=== PATIENT | female | born 1940 | race American Indian/Alaskan Native ===

== ENCOUNTER 2017-08-05 20:55 | Emergency (ER) | payer MEDICARE ==
--- NOTE | 2017-08-05 21:27 | Emergency Department Report ---
ED General Adult HPI - General Chief complaint: Altered Mental Status Stated complaint: MH EVAL Time Seen by Provider: 08/05/17 21:19 Source: family, EMS Mode of arrival: Stretcher Limitations: Language Barrier, Altered Mental Status - History of Present Illness Initial comments: Patient sent from the detention, for altered mental status. According the patients daughter, patient is not at baseline currently. Patient does have history of dementia and urinary tract infection. She was diagnosed with a UTI but she is not taking her medication for the infection. -: Gradual, days(s) (3) Severity scale (0 -10): 3 Consistency: constant Improves with: none Worsens with: none Treatments Prior to Arrival: none - Related Data Previous Rx's Medication Instructions Recorded Last Taken Type Cephalexin [Keflex] 500 mg PO Q8HR #30 cap 08/06/17 Unknown Rx Allergies Allergy/AdvReac Type Severity Reaction Status Date / Time No Known Allergies Allergy Unverified 08/05/17 21:36 ED Review of Systems ROS: Stated complaint: MH EVAL Other details as noted in HPI Comment: Unobtainable due to pts medical conditions (altered mental status.) ED Past Medical Hx - Past Medical History Previous Medical History?: Yes Hx Diabetes: Yes Hx of Cancer: Yes (breast) Hx Psychiatric Treatment: Yes (schizophrenia) Hx Dementia: Yes (with behavioral disturbances) Additional medical history: legal blindness - Surgical History Past Surgical History?: No Additional Surgical History: unknown - Social History Smoking Status: Unknown if ever smoked Substance Use Type: None - Medications Home Medications: Home Medications Medication Instructions Recorded Confirmed Last Taken Type Cephalexin [Keflex] 500 mg PO Q8HR #30 cap 08/06/17 Unknown Rx ED Physical Exam - General Limitations: Language Barrier, Altered Mental Status General appearance: alert, in no apparent distress - Head Head exam: Present: atraumatic, normocephalic, normal inspection - Eye Eye exam: Present: normal appearance, PERRL, EOMI Pupils: Present: normal accommodation - ENT ENT exam: Present: normal exam, mucous membranes dry - Neck Neck exam: Present: normal inspection, full ROM. Absent: tenderness - Respiratory Respiratory exam: Present: normal lung sounds bilaterally. Absent: respiratory distress, wheezes - Cardiovascular Cardiovascular Exam: Present: regular rate, normal rhythm, normal heart sounds - GI/Abdominal GI/Abdominal exam: Present: soft, normal bowel sounds. Absent: distended, tenderness, guarding, rebound - Extremities Exam Extremities exam: Present: normal inspection, full ROM, normal capillary refill - Back Exam Back exam: Present: normal inspection, full ROM - Neurological Exam Neurological exam: Present: alert, altered - Psychiatric Psychiatric exam: Present: flat affect - Skin Skin exam: Present: warm, dry, intact, normal color. Absent: rash ED Course Vital Signs 08/05/17 08/05/17 08/06/17 21:15 22:45 00:19 Temperature 98.1 F Pulse Rate 87 82 Respiratory 17 18 16 Rate Blood Pressure 135/64 150/60 [Left] O2 Sat by Pulse 97 97 98 Oximetry ED Medical Decision Making - Lab Data Result diagrams: 08/05/17 21:32 08/05/17 21:32 - EKG Data -: EKG Interpreted by Me EKG shows normal: sinus rhythm Rate: normal (84) - EKG Data When compared to previous EKG there are: previous EKG unavailable Interpretation: no acute changes - Radiology Data Radiology results: report reviewed, image reviewed - Medical Decision Making Altered Mental Status. Critical care attestation.: If time is entered above; I have spent that time in minutes in the direct care of this critically ill patient, excluding procedure time. ED Disposition Clinical Impression: UTI (urinary tract infection) Qualifiers: Urinary tract infection type: acute cystitis Hematuria presence: without hematuria Qualified Code(s): N30.00 - Acute cystitis without hematuria Disposition: TO HOME OR SELFCARE Is pt being admited?: No Does the pt Need Aspirin: No Condition: Stable Instructions: Urinary Tract Infection in Women (ED) Additional Instructions: Please follow up with your primary doctor within the next 24 hours. Return to the ED if your condition worsens. Prescriptions: Cephalexin [Keflex] 500 mg PO Q8HR #30 cap Referrals: PRIMARY CARE [Primary Care Provider] - 3-5 Days Time of Disposition: :34
[2017-08-05 21:49] LABS: Hematocrit 45.6 % (30.3-42.9); Hemoglobin 15.7 gm/dl (10.1-14.3); Mean Corpuscular HGB Conc 34 % (30-34); Mean Corpuscular Hemoglobin 29 pg (28-32); Mean Corpuscular Volume 83 fl (79-97); Platelet Count 222 K/mm3 (140-440); Red Blood Count 5.47 M/mm3 (3.65-5.03); Red Cell Distribution Width 14.4 % (13.2-15.2)
[2017-08-05 21:57] LABS: INR 1.04 (0.87-1.13)
[2017-08-05 21:58] LABS: Partial Thromboplastin Time 27.8 Sec. (24.2-36.6)
[2017-08-05 22:10] LABS: Alanine Aminotransferase 33 units/L (7-56); BUN/Creatinine Ratio 27; Blood Urea Nitrogen 16 mg/dL (7-17); Calcium 9.9 mg/dL (8.4-10.2); Hemolysis Index 41
[2017-08-05 22:28] LABS: Basophils % (Manual) 0 % (0.0-1.8); Eosinophils % (Manual) 0 % (0.0-4.3); Total Cells Counted 100
[2017-08-05 22:29] LABS: RBC Morphology Normal
[2017-08-05] MEDS ORDERED: NACL 0.9% 1000 ML 1,000 ML IV ONE (22:30)
[2017-08-05 22:46] LABS: Bacteria,Urine 1+ /HPF (Negative); Bilirubin,Urine NEG (Negative); Blood,Urine LG (Negative); Color,Urine Amber (Yellow); Mucus,Urine 3+ /HPF
[2017-08-05 22:49] LABS: WBC,Urine > 182.0 /HPF (0.0-6.0)
[2017-08-05 22:55] LABS: Amphetamine Screen,Urine PRESUMPTIVE NEGATIVE; Benzodiazepines Screen,Urine PRESUMPTIVE NEGATIVE; Cannabinoid Screen,Urine PRESUMPTIVE NEGATIVE; Cocaine Screen,Urine PRESUMPTIVE NEGATIVE; Methadone Screen,Urine PRESUMPTIVE NEGATIVE; Opiate Screen,Urine PRESUMPTIVE NEGATIVE
--- NOTE | 2017-08-05 22:56 | XRay Report ---
FINAL REPORT PROCEDURE: XR CHEST 1V AP TECHNIQUE: Chest radiograph anteroposterior view. CPT 80520 HISTORY: altered mental status COMPARISON: No prior studies are available for comparison. FINDINGS: Heart: Normal. Mediastinum/Vessels: Normal. Lungs/Pleural space: Mild degree left pleural effusion is noted. Subsegment atelectatic changes are noted in bilateral lung bases. Right lung and right pleural space are clear.. Bony thorax: No acute osseous abnormality. Life support devices: None. IMPRESSION: Mild degree left pleural effusion. Subsegment atelectatic changes left lung base. Any underlying infiltrates cannot be excluded. A two view chest study is recommended whenever the patient's condition permits..
[2017-08-06] MEDS ORDERED: ATIVAN IV ONE (00:02)
[2017-08-06] MEDS ORDERED: ROCEPHIN/NS 1 GM/50 ML 1 GM/50 ML BAG IV ONE (00:06)
[2017-08-06] MEDS ORDERED: NACL 0.9% 1000 ML 1,000 ML IV ONE (00:06)
[2017-08-06] MEDS ORDERED: cefTRIAXone 1 GM in NACL 0.9% 20 ML IV ONE (00:15)
[2017-08-06 00:20] VITALS: BP 150/60
--- NOTE | 2017-08-06 00:56 | Cat Scan Report ---
FINAL REPORT EXAM: CT HEAD/BRAIN WO CON HISTORY: altered mental status TECHNIQUE: Routine axial imaging was obtained of the brain without IV contrast. FINDINGS: There is [id number] atrophy. There is diminished attenuation of the periventricular white matter compatible chronic microvascular disease changes. There is no evidence of acute stroke or hemorrhage. The ventricular system is symmetric in size. There are no extra-axial fluid collections. The visualized sinuses are clear. The mastoid air cells are well pneumatized IMPRESSION: [id number] atrophy with chronic microvascular disease changes. No evidence of acute stroke or hemorrhage.
== END 2017-08-06 12:00 | disposition home or self-care (01) ==
LOC: EEVIPCON 20:55 → ED 20:55
DX: R41.82 Altered mental status, unspecified (principal); N39.0 Urinary tract infection, site not specified; I10 Essential (primary) hypertension; F20.9 Schizophrenia, unspecified; F03.91 Unspecified dementia, unspecified severity, with behavioral disturbance
CPT/HCPCS: 36415; 70450; 71045; 80053; 80307; 81001; 83690; 83880; 84443; 85007; 85025; 85610; 85730; 93005; 93010; 96361; 96365; 96375; 99285; G0480; J0696; J2060; J7030; 80320

== ENCOUNTER 2018-03-31 11:36 | Inpatient (IN) | payer MEDICARE, MEDICAID ==
[2018-03-31] MEDS ORDERED: NACL 0.9% 1000 ML 1,000 ML IV ONE (12:31)
[2018-03-31] MEDS ORDERED: MORPHINE IV ONE (12:31)
[2018-03-31] MEDS ORDERED: ZOFRAN IV ONE (12:31)
--- NOTE | 2018-03-31 12:36 | Emergency Department Report ---
ED General Adult HPI - General Chief complaint: Extremity Injury, Upper Stated complaint: UNCONTROLLABLE PAIN Time Seen by Provider: 03/31/18 12:03 Source: EMS Mode of arrival: Stretcher Limitations: Language Barrier, Altered Mental Status - History of Present Illness Initial comments: Patient is 77-year-old female, longterm patient, history of dementia hypertension diabetes and schizophrenia. Patient brought to the emergency room via EMS for evaluation of back pain. Patient stated that she fell but according to EMS longterm staff denied that. Patient is very poor historian and I believe that's because of dementia. On exam patient is tender to the left hip. Patient has dry mucous membrane. - Related Data Home Medications Medication Instructions Recorded Confirmed Last Taken Amantadine HCl [Amantadine] 100 mg PO DAILY 08/10/17 08/10/17 Unknown Anastrozole (Nf) [Arimidex (Nf)] 1 mg PO DAILY 08/10/17 08/10/17 Unknown Rivastigmine [Exelon Patch 4.6 mg TP Q24HR 08/10/17 08/10/17 Unknown 4.6mg/24hr] glipiZIDE [Glipizide] 5 mg PO DAILY 08/10/17 08/10/17 Unknown Allergies Allergy/AdvReac Type Severity Reaction Status Date / Time No Known Allergies Allergy Unverified 08/05/17 21:36 ED Review of Systems ROS: Stated complaint: UNCONTROLLABLE PAIN Other details as noted in HPI Comment: All other systems reviewed and negative Constitutional: denies: chills, fever Respiratory: denies: cough, orthopnea, shortness of breath, SOB with exertion, SOB at rest, wheezing Cardiovascular: denies: chest pain Gastrointestinal: denies: abdominal pain, nausea, vomiting, diarrhea, constipation, melena, hematochezia Neurological: denies: headache, weakness ED Past Medical Hx - Past Medical History Previous Medical History?: Yes Hx Hypertension: Yes Hx Diabetes: Yes Hx Psychiatric Treatment: Yes (schizophrenia) Hx Dementia: Yes (with behavioral disturbances) Additional medical history: legal blindness - Surgical History Past Surgical History?: No Additional Surgical History: unknown - Social History Smoking Status: Unknown if ever smoked Substance Use Type: None - Medications Home Medications: Home Medications Medication Instructions Recorded Confirmed Last Taken Type Amantadine HCl [Amantadine] 100 mg PO DAILY 06/09/18 06/09/18 Unknown History Anastrozole (Nf) [Arimidex (Nf)] 1 mg PO DAILY 08/10/17 08/10/17 Unknown History Rivastigmine [Exelon Patch 4.6 mg TP Q24HR 08/10/17 08/10/17 Unknown History 4.6mg/24hr] glipiZIDE [Glipizide] 5 mg PO DAILY 08/10/17 08/10/17 Unknown History ED Physical Exam - General Limitations: Language Barrier, Altered Mental Status General appearance: alert, in no apparent distress - Head Head exam: Present: atraumatic, normocephalic, normal inspection - Eye Eye exam: Present: normal appearance, PERRL - ENT ENT exam: Present: mucous membranes dry - Neck Neck exam: Present: normal inspection, full ROM. Absent: tenderness, meningismus, lymphadenopathy, thyromegaly - Respiratory Respiratory exam: Present: normal lung sounds bilaterally. Absent: respiratory distress, wheezes, rales, rhonchi, stridor, chest wall tenderness, accessory muscle use, decreased breath sounds, prolonged expiratory - Cardiovascular Cardiovascular Exam: Present: tachycardia - GI/Abdominal GI/Abdominal exam: Present: soft, normal bowel sounds. Absent: distended, tenderness, guarding, rebound, rigid, organomegaly, mass, bruit, pulsatile mass, hernia - Extremities Exam Extremities exam: Present: normal inspection, full ROM, normal capillary refill. Absent: pedal edema, calf tenderness - Back Exam Back exam: Present: normal inspection, full ROM. Absent: tenderness, CVA tenderness (R), CVA tenderness (L), muscle spasm, paraspinal tenderness, vertebral tenderness - Neurological Exam Neurological exam: Present: alert - Skin Skin exam: Present: warm, intact, normal color ED Course Vital Signs 03/31/18 03/31/18 03/31/18 11:44 12:00 12:03 Temperature 97.8 F Pulse Rate 105 H 96 H Respiratory 21 11 L 16 Rate Blood Pressure 137/81 137/81 O2 Sat by Pulse 95 94 98 Oximetry 03/31/18 03/31/18 03/31/18 12:30 13:00 13:21 Temperature Pulse Rate 97 H 94 H Respiratory 24 20 16 Rate Blood Pressure 152/59 152/59 O2 Sat by Pulse 94 94 Oximetry 01/28/19 01/28/19 01/28/19 13:30 14:00 14:30 Temperature Pulse Rate 94 H 88 86 Respiratory 20 14 20 Rate Blood Pressure 150/71 150/71 147/79 O2 Sat by Pulse 88 89 85 Oximetry 03/31/18 03/31/18 03/31/18 15:00 15:30 16:00 Temperature Pulse Rate 89 88 80 Respiratory 14 23 12 Rate Blood Pressure 147/79 156/82 170/91 O2 Sat by Pulse 90 85 99 Oximetry 03/31/18 03/31/18 03/31/18 16:30 17:00 17:30 Temperature Pulse Rate 80 97 H 89 Respiratory 13 14 15 Rate Blood Pressure 159/75 159/75 135/89 O2 Sat by Pulse 100 94 87 Oximetry 03/31/18 03/31/18 03/31/18 18:00 18:30 19:00 Temperature Pulse Rate 99 H 94 H 88 Respiratory 22 25 H 13 Rate Blood Pressure 135/89 135/89 135/89 O2 Sat by Pulse 94 85 Oximetry - Consultations Consultation #1: 03/31/18 19:54 I discussed the patient was Dr. Otto from orthopedics. Dr. Otto advises to admit the patient to the hospitalist for possible surgery. ED Medical Decision Making - Lab Data Result diagrams: 03/31/18 13:23 03/31/18 13:23 - Radiology Data Radiology results: report reviewed Referring Physician: LAMAR SANDERSON Patient Name: ROGERIO DUVAL Date of : 1940 Sex: Female Report Date: 2018-03-31 Report Status: [place] [address] XRay Report Signed Patient: ROGERIO DUVAL MR#: [id number] : 1940 Acct:[id number] Age/Sex: 77 / F ADM Date: 03/31/18 Loc: ED Attending Dr: Ordering Physician: LAMAR SANDERSON Date of Service: 03/31/18 Procedure(s): XR shoulder 2+V RT Accession Number(s): [id number] cc: LAMAR SANDERSON Fluoro Time In Minutes: FINAL REPORT EXAM: XR SHOULDER 2+V RT HISTORY: injury, pain history of breast cancer. TECHNIQUE: Frontal and Y-views right shoulder Comparison: X-ray right humerus also performed today FINDINGS: Visualization detail is significantly limited by osteopenia and overlapping structures. Again noted is the lytic lesion in the midshaft of the humerus. The it is unclear whether not irregularity of the glenoid represents degenerative change or possible fracture. It is unclear whether not on the Y-view the humerus articulates normally with the glenoid. IMPRESSION: 1. Study significantly degraded by overlapping structures and osteopenia. 2. A fracture of the glenoid or possible subluxation of the humeral head relative to the glenoid cannot be excluded with this study. CT may be helpful for further evaluation. 2. Lytic lesion midshaft humerus as was demonstrated on the previous humerus x- ray. Transcribed By: ED Dictated By: MADDY AYON MD Electronically Authenticated By: MADDY AYON MD Signed Date/Time: 03/31/181807 DD/ 09 TD/TT: 03/31/181809 - Medical Decision Making Patient is 77-year-old female, longterm patient, history of dementia hypertension diabetes and schizophrenia. Patient brought to the emergency room via EMS for evaluation of back pain. Patient stated that she fell but according to EMS longterm staff denied that. Patient is very poor historian and I believe that's because of dementia. On exam patient is tender to the left hip. Patient has dry mucous membrane. Patient found to have a midshaft humerus pathological fracture. I discussed the patient is Dr. Otto, Dr. Otto advised to admit the patient to the hospitalist for possible surgery. I discussed the patient with Dr Brown, he agreed to admit the patient to medical service. Critical care attestation.: If time is entered above; I have spent that time in minutes in the direct care of this critically ill patient, excluding procedure time. ED Disposition Clinical Impression: Fall, Right arm pain, Hip pain, left, Right humeral fracture Disposition: OP ADMIT IP TO THIS HOSP Is pt being admited?: Yes Condition: Stable Referrals: [facility] [Other] - 3-5 Days
--- NOTE | 2018-03-31 12:50 | XRay Report ---
LEFT HIP RADIOGRAPHS INDICATION: Left hip tenderness. COMPARISON: None similar. FINDINGS: An AP pelvic radiograph with frog-leg projection of the left hip somewhat limited due to patient's body habitus, though demonstrate intact articulation. Imaged bilateral SI and hip joints appear intact. Nonobstructive bowel gas pattern. CONCLUSION: No acute radiographic abnormality. Thank you for the opportunity to participate in this patient's care.
[2018-03-31 14:01] LABS: Basophils # (Auto) 0.1 K/mm3 (0.0-0.1); Basophils % (Auto) 0.9 % (0.0-1.8); Eosinophils # (Auto) 0.1 K/mm3 (0.0-0.4); Hematocrit 42.1 % (30.3-42.9); Hemoglobin 14.5 gm/dl (10.1-14.3); Lymphocytes # (Auto) 1.9 K/mm3 (1.2-5.4); Lymphocytes % (Auto) 30.2 % (13.4-35.0); Mean Corpuscular HGB Conc 34 % (30-34); Mean Corpuscular Volume 81 fl (79-97); Monocytes # (Auto) 0.7 K/mm3 (0.0-0.8); Monocytes % (Auto) 12.1 % (0.0-7.3); Platelet Count 295 K/mm3 (140-440)
[2018-03-31 14:04] LABS: INR 0.94 (0.87-1.13)
[2018-03-31 14:05] LABS: Partial Thromboplastin Time 27.5 Sec. (24.2-36.6)
[2018-03-31 14:36] LABS: BUN/Creatinine Ratio 30; Blood Urea Nitrogen 15 mg/dL (7-17); Calcium 9.9 mg/dL (8.4-10.2); Hemolysis Index 21
[2018-03-31 14:40] LABS: Albumin 3.2 g/dL (3.9-5); Bilirubin,Direct 0.3 mg/dL (0-0.2)
[2018-03-31 17:03] LABS: Bilirubin,Urine NEG (Negative); Blood,Urine NEG (Negative); Color,Urine Amber (Yellow); Granular Casts,Urine 1 /LPF; Hyaline Casts,Urine 4 /LPF; Mucus,Urine 3+ /HPF; Protein,Urine <15 mg/dL mg/dL (Negative)
--- NOTE | 2018-03-31 17:45 | XRay Report ---
FINAL REPORT EXAM: XR HUMERUS 2+V RT HISTORY: Fall, pain to the arm history of breast cancer. TECHNIQUE: Frontal and oblique views right humerus Comparison: X-ray right shoulder also performed today FINDINGS: There are 2 lytic lesions involving the mid and distal diaphysis of the right humerus. There is loss of cortical definition in the region of the mid diaphysis lesion. Bony alignment is normal. The soft tissues are unremarkable. IMPRESSION: 1. Lytic lesions involving the mid and distal diaphysis with loss of cortical definition in the regio n of the mid diaphysis lesion. 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 A pathologic fracture in the region of the m id diaphysis lesion needs to be considered in this patient with pain status post fall and loss of cor tical definition in this region. CT may be helpful for further evaluation. The above findings and the benefit is CT imaging for further evaluation were discussed with Dr. January reese at 5:40 p.m. March 31, 2018.
--- NOTE | 2018-03-31 18:08 | XRay Report ---
FINAL REPORT EXAM: XR SHOULDER 2+V RT HISTORY: injury, pain history of breast cancer. TECHNIQUE: Frontal and Y-views right shoulder Comparison: X-ray right humerus also performed today FINDINGS: Visualization detail is significantly limited by osteopenia and overlapping structures. Again noted is the lytic lesion in the midshaft of the humerus. The it is unclear whether not irregularity of the glenoid represents degenerative change or possible fracture. It is unclear whether not on the Y-view the humerus articulates normally with the glenoid. IMPRESSION: 1. Study significantly degraded by overlapping structures and osteopenia. 2. A fracture of the glenoid or possible subluxation of the humeral head relative to the glenoid stephanie ot be excluded with this study. CT may be helpful for further evaluation. 2. Lytic lesion midshaft humerus as was demonstrated on the previous humerus x-ray.
--- NOTE | 2018-03-31 19:45 | Cat Scan Report ---
FINAL REPORT EXAM: CT UPPER EXTREM RT WO CON HISTORY: abnormal x-ray. possible TECHNIQUE: Axial helical imaging through the right shoulder and proximal humerus with sagittal and c oronal reformatted images obtained. Comparison: X-rays right humerus the and shoulder also performed today FINDINGS: There is an area of lytic change in the body of the right humerus that extends to the right glenoid. There is lytic change in the mid portion of the right clavicle. There is lytic change involving the midshaft of the right humerus with loss of cortical integrity of the anterior and posterior cortex which may represent a pathologic fracture. There is no evidence of dislocation. IMPRESSION: 1. Findings most suggestive of lytic metastases involving the right scapula, clavicle and humerus. 2. Loss of cortical definition of the anterior and posterior cortex of the mid right humeral shaft wh ich may represent a pathologic fracture.
[2018-03-31] MEDS ORDERED: VASELINE LIP THERAPY TP ONE (19:59)
--- NOTE | 2018-03-31 20:10 | History and Physical Report ---
History of Present Illness Chief complaint: confused History of present illness: 77 YO Female [facility] Resident at [facility] with Breast Cancer (Patient declined treatment), Dementia, HTN, DM, Schizophrenia, Debility presents to ED for evaluation. Pt is pleasantly confused and unable to provide detailed history. Pt history provided by daughter who is at bedside during exam and interview. Pt daughter reports notificatation by [facility] staff that patient has experienced Right arm pain after a fall. EMS notified, and upon arrival the patient was found to complain of pain. pt transported to [facility] for further care and evaluation. Pt seen and evaluated in ED and found to have a pathologic Right humerus fracture. Ortho consulted in ED. No further history obtainable. Past History Past Medical History: cancer, diabetes, other (Dementia, Schizophrenia) Past Surgical History: No surgical history, Other (reviewed) Social history: single. denies: alcohol abuse, prescription drug abuse, IV drug use Family history: hypertension Medications and Allergies Allergies Allergy/AdvReac Type Severity Reaction Status Date / Time No Known Allergies Allergy Unverified 08/05/17 21:36 Home Medications Medication Instructions Recorded Confirmed Last Taken Type RX: Amantadine HCl [Amantadine] 100 mg PO DAILY 08/10/17 03/31/18 Unknown History RX: Anastrozole (Nf) [Arimidex 1 mg PO DAILY 08/10/17 03/31/18 Unknown History (Nf)] RX: Rivastigmine [Exelon Patch 4.6 mg TP Q24HR 08/10/17 03/31/18 Unknown History 4.6mg/24hr] Insulin Aspart [Novolog] 1 dose SQ ACHS PRN #100 units 04/03/18 Unknown Rx RX: ALBUTEROL NEB's [Proventil 2.5 mg IH Q4HRT PRN #30 nebu 04/03/18 Unknown Rx 0.083% NEBS] RX: Acetaminophen [Acetaminophen 650 mg PO Q4H PRN #15 tablet 04/03/18 Unknown Rx TAB] RX: amLODIPine [Norvasc] 5 mg PO QDAY #30 tablet 04/03/18 Unknown Rx RX: oxyCODONE /ACETAMINOPHEN 1 tab PO Q6H PRN #15 tablet 04/03/18 Unknown Rx [Percocet 5/325 mg] Review of Systems ROS unobtainable: due to mental status Exam - Constitutional Vitals: Temp Pulse Resp BP Pulse Ox 97.8 F 88 13 135/89 85 03/31/18 11:44 03/31/18 19:00 03/31/18 19:00 03/31/18 19:00 03/31/18 18:30 General appearance: Present: mild distress, obese - EENT Eyes: Present: PERRL ENT: hearing intact, clear oral mucosa - Neck Neck: Present: supple, normal ROM - Respiratory Respiratory effort: normal Respiratory: bilateral: CTA - Cardiovascular Heart Sounds: Present: S1 & S2. Absent: rub, click - Extremities Extremities: pulses symmetrical, No edema Peripheral Pulses: within normal limits - Abdominal Female genitourinary: Present: normal - Integumentary Integumentary: Present: clear, dry, clammy, decreased turgor - Musculoskeletal Musculoskeletal: generalized weakness - Psychiatric Psychiatric: no appropriate mood/affect, no intact judgment & insight, no memory intact - Neurologic Neurologic: CNII-XII intact, no focal deficits, no gait normal Results - Labs CBC & Chem 7: 04/03/18 04:50 04/03/18 04:50 Labs: Abnormal lab results 03/31/18 03/31/18 03/31/18 Range/Units 13:23 13:23 13:23 RBC 5.20 H (3.65-5.03) M/mm3 Hgb 14.5 H (10.1-14.3) gm/dl [place] % (Auto) 12.1 H (0.0-7.3) % Potassium 3.4 L (3.6-5.0) mmol/L Creatinine 0.5 L (0.7-1.2) mg/dL Glucose 175 H (65-100) mg/dL Direct Bilirubin 0.3 H (0-0.2) mg/dL Alkaline Phosphatase 153 H (35-129) units/L Albumin 3.2 L (3.9-5) g/dL Assessment and Plan - Patient Problems (1) Breast cancer Status: Acute Qualifiers: Laterality: unspecified laterality Plan to address problem: Pt declined treatment at time of diagnosis, continue supportive care. (2) Dementia Status: Acute Qualifiers: Dementia type: vascular dementia Dementia behavioral disturbance: without behavioral disturbance Qualified Code(s): F01.50 - Vascular dementia without behavioral disturbance Plan to address problem: Supportive care, pain control. (3) Debility Status: Acute Plan to address problem: Supportive care, PT consulted, (4) Right humeral fracture Status: Acute Plan to address problem: Ortho consulted in ED, pending surgical intervention (5) DVT prophylaxis Status: Acute Plan to address problem: SCD to BLE while in bed,
[2018-03-31] MEDS ORDERED: SODIUM CHLORIDE FLUSH SYRINGE 10 ML IV PRN (20:14)
[2018-03-31] MEDS ORDERED: ZOFRAN IV PRN (20:14)
[2018-03-31] MEDS ORDERED: TYLENOL PO PRN (20:14)
[2018-03-31] MEDS ORDERED: PERCOCET 5/325 PO PRN (20:14)
[2018-03-31] MEDS ORDERED: MORPHINE IV PRN ×2 (20:14→22:00)
[2018-03-31] MEDS ORDERED: PROVENTIL IH PRN (20:14)
[2018-03-31] MEDS ORDERED: MORPHINE ONE (20:46)
--- NOTE | 2018-03-31 21:16 | XRay Report ---
FINAL REPORT EXAM: XR CHEST 1V AP HISTORY: medical clearance TECHNIQUE: Frontal chest x-ray performed semi erect Comparison: Chest x-ray 08/09/2017, 08/05/2017 FINDINGS: Heart size is within normal limits. There is fullness of the right suprahilar contours. Aorta is tortuous. Aneurysm of the descending aorta cannot be excluded. There are calcified right infrahilar lymph nodes. There is coarsening of the bronchovascular stitch min both lung bases. Known lytic and medullary replacing lesions of the right humerus and scapula. Right clavicle metastat ic disease is also present. Stable fullness of the right paratracheal region. IMPRESSION: Cannot exclude right hilar adenopathy. Fullness of the right hilum and suprahilar region. Ill-defined lytic lesion right clavicle poorly seen by x-ray. Right posterior 6th rib fracture and posterior lateral right 5th rib fracture. These may be posttraum atic or pathologic. Lucency of the right glenoid of the scapula with apparent pathologic fracture. Recommend CT chest with IV contrast or possibly CT PET for further staging.
[2018-04-01] MEDS: NACL 0.45% 1000 ML 1,000 ML IV SCH ×2 (07:35→22:08)
[2018-04-01] MEDS: SODIUM CHLORIDE FLUSH SYRINGE 10 ML IV SCH ×3 (07:40→22:08)
[2018-04-01] MEDS: EXELON TD SCH (09:37)
[2018-04-01] MEDS: SYMMETREL PO SCH (09:38)
[2018-04-01] MEDS ORDERED: NON-FORMULARY (Anastrozole (Nf) 1 MG) PO SCH (10:00)
--- NOTE | 2018-04-01 16:47 | Progress Note ---
Assessment and Plan Assessment and plan: Patient is a 77 yo woman with a SNF at [facility] with Breast Cancer (Patient declined treatment), Dementia, HTN, DM, Schizophrenia and Debility who presents with Right arm pain after a fall. Patient evaluated in ED and found to have a Right humerus fracture. Ortho consulted in ED. No further history obtainable. -Right arm pains, right humerus fracture: await Ortho -Breast cancer -Dementia -DVT prophylaxis reviewed History Interval history: Patient was seen and examined. Follow-up on current diagnosis. Overnight uneventful. Patient denies any chest pain, shortness breath, nausea/vomiting or severe headaches. Imaging, nursing note, chart, labs and old chart reviewed. Discussed with patient. Gen: WDWN, NAD, Awake, and confused HEENT: NCAT, EOMI, PERRL, OP Clear Neck: supple, no adenopathy, no thyromegaly, no JVD CVS/Heart: RRR, normal S1S2, pulses present bilaterally Chest/Lungs: CTA B, Symmetrical chest expansion, good air entry bilaterally GI/Abdomen: soft, NTND, good bowel sounds, no guarding or rebound /Bladder: no suprapubic tenderness, no CVA or paraspinal tenderness Extermity/Skin: no c/c/e, no obvious rash MSK: FROM x 4 Neuro: CN 2-12 grossly intact, no new focal deficits Psych: confused Hospitalist Physical - Constitutional Vitals: Temp Pulse Resp BP Pulse Ox 98.3 F 90 20 157/73 95 04/01/18 11:42 04/01/18 11:42 04/01/18 11:42 04/01/18 11:42 04/01/18 11:42 General appearance: Present: mild distress, obese Results - Labs CBC & Chem 7: 03/31/18 13:23 03/31/18 13:23 Labs: Laboratory Last Values WBC 6.1 K/mm3 (4.5-11.0) 03/31/18 13:23 RBC 5.20 M/mm3 (3.65-5.03) H 03/31/18 13:23 Hgb 14.5 gm/dl (10.1-14.3) H 03/31/18 13:23 Hct 42.1 % (30.3-42.9) 03/31/18 13:23 MCV 81 fl (79-97) 03/31/18 13:23 MCH 28 pg (28-32) 03/31/18 13:23 MCHC 34 % (30-34) 03/31/18 13:23 RDW 15.0 % (13.2-15.2) 03/31/18 13:23 Plt Count 295 K/mm3 (140-440) 03/31/18 13:23 Lymph % (Auto) 30.2 % (13.4-35.0) 03/31/18 13:23 [place] % (Auto) 12.1 % (0.0-7.3) H 03/31/18 13:23 Eos % (Auto) 1.0 % (0.0-4.3) 03/31/18 13:23 Baso % (Auto) 0.9 % (0.0-1.8) 03/31/18 13:23 Lymph # 1.9 K/mm3 (1.2-5.4) 03/31/18 13:23 [place] # 0.7 K/mm3 (0.0-0.8) 03/31/18 13:23 Eos # 0.1 K/mm3 (0.0-0.4) 03/31/18 13:23 Baso # 0.1 K/mm3 (0.0-0.1) 03/31/18 13:23 Seg Neutrophils % 55.8 % (40.0-70.0) 03/31/18 13:23 Seg Neutrophils # 3.4 K/mm3 (1.8-7.7) 03/31/18 13:23 PT 13.0 Sec. (12.2-14.9) 03/31/18 13:23 INR 0.94 (0.87-1.13) 03/31/18 13:23 APTT 27.5 Sec. (24.2-36.6) 03/31/18 13:23 Sodium 141 mmol/L (137-145) 03/31/18 13:23 Potassium 3.4 mmol/L (3.6-5.0) L 03/31/18 13:23 Chloride 98.0 mmol/L (98-107) 03/31/18 13:23 Carbon Dioxide 30 mmol/L (22-30) 03/31/18 13:23 Anion Gap 16 mmol/L 03/31/18 13:23 BUN 15 mg/dL (7-17) 03/31/18 13:23 Creatinine 0.5 mg/dL (0.7-1.2) L 03/31/18 13:23 Estimated GFR > 60 ml/min 03/31/18 13:23 BUN/Creatinine Ratio 30 % 03/31/18 13:23 Glucose 175 mg/dL (65-100) H 03/31/18 13:23 POC Glucose 172 (70-105) H 04/01/18 11:08 Calcium 9.9 mg/dL (8.4-10.2) 03/31/18 13:23 Total Bilirubin 0.80 mg/dL (0.1-1.2) 03/31/18 13:23 Direct Bilirubin 0.3 mg/dL (0-0.2) H 03/31/18 13:23 Indirect Bilirubin 0.5 mg/dL 03/31/18 13:23 AST 39 units/L (5-40) 03/31/18 13:23 ALT 22 units/L (7-56) 03/31/18 13:23 Alkaline Phosphatase 153 units/L (35-129) H 03/31/18 13:23 Total Protein 7.8 g/dL (6.3-8.2) 03/31/18 13:23 Albumin 3.2 g/dL (3.9-5) L 03/31/18 13:23 Albumin/Globulin Ratio 0.7 % 03/31/18 13:23 Urine Color [place] (Yellow) 03/31/18 16:13 Urine Turbidity Clear (Clear) 03/31/18 16:13 Urine pH 5.0 (5.0-7.0) 03/31/18 16:13 Ur Specific [place] 1.018 (1.003-1.030) 03/31/18 16:13 Urine Protein <15 mg/dl mg/dL (Negative) 03/31/18 16:13 Urine Glucose (UA) Neg mg/dL (Negative) 03/31/18 16:13 Urine Ketones Tr mg/dL (Negative) 03/31/18 16:13 Urine Blood Neg (Negative) 03/31/18 16:13 Urine Nitrite Neg (Negative) 03/31/18 16:13 Urine Bilirubin Neg (Negative) 03/31/18 16:13 Urine Urobilinogen 4.0 mg/dL (<2.0) 03/31/18 16:13 Ur Leukocyte Esterase Neg (Negative) 03/31/18 16:13 Urine WBC (Auto) 3.0 /HPF (0.0-6.0) 03/31/18 16:13 Urine RBC (Auto) 1.0 /HPF (0.0-6.0) 03/31/18 16:13 U Epithel Cells (Auto) < 1.0 /HPF (0-13.0) 03/31/18 16:13 Hyaline Casts 4 /LPF 03/31/18 16:13 Granular Casts 1 /LPF 03/31/18 16:13 Urine Mucus 3+ /HPF 03/31/18 16:13 Nutrition/Malnutrition Assess - Dietary Evaluation Nutrition/Malnutrition Findings: Nutrition Notes Start: 04/01/18 11:29 Freq: Status: Active Protocol: Document 04/01/18 11:29 HEATHER (Rec: 04/01/18 11:30 HEATHER [id number]) Nutrition Notes Need for Assessment generated from: Low BMI Initial or Follow up Brief Note Height 5 ft Weight 76.18 kg [place] Body Weight (kg) 45.45 BMI 32.8 Subjective/Other Information Pt mistakingly screened for low BMI.
[2018-04-01] MEDS ORDERED: K-DUR PO ONE (17:30)
--- NOTE | 2018-04-02 10:37 | XRay Report ---
Bone survey: Breast cancer. Standard imaging of the skeleton is performed. There is a slightly expansile ovoid lytic area in the mid right clavicle as well as a lytic area in the right scapula and contiguous with the glenoid fossa. Lateral rib fractures were identified at the fifth and sixth right ribs with a lytic lesion noted in the sixth rib. Lytic rib lesions are also identified in the posterolateral left eighth and 10th ribs. There is a lytic lesion in the left iliac wing distal third of the right femoral shaft, proximal left femoral shaft, mid right humerus shaft and distal third, and mid left humerus there is also a large lytic lesion in the posterior calvarium and a couple smaller suspicious lytic areas both above and anterior to the large lesion. Imaging of the spine demonstrates diminished mineralization and heterogeneity of the bones. There do appear to be destructive lytic lesions however in the T10 and L2 vertebral bodies. The other levels are less clearly defined. Of additional note is a levoscoliosis of the midthoracic spine and grade 1 anterior L4 subluxation relative to L5. Impressions: Diffuse lytic lesions consistent with metastatic disease.
[2018-04-02] MEDS: EXELON TD SCH (11:24)
[2018-04-02] MEDS: SYMMETREL PO SCH (11:24)
[2018-04-02] MEDS: SODIUM CHLORIDE FLUSH SYRINGE 10 ML IV SCH ×2 (11:25→21:18)
--- NOTE | 2018-04-02 11:55 | Consultation ---
History of Present Illness - [facility] Consult date: 04/01/18 Consult reason: fracture History of present illness: This 77-year-old female with a history of breast cancer schizophrenia and dementia and diabetes patient resides at [facility]. She apparently fell and began complaining of right arm pain she was brought to the emergency department as a regional where x-rays CT scan revealed a nondisplaced right midshaft humerus fracture patient was admitted to the hospital for further workup. Past History Past Medical History: cancer, diabetes, other (Dementia, Schizophrenia) Past Surgical History: No surgical history, Other (reviewed) Social history: single. denies: alcohol abuse, prescription drug abuse, IV drug use Family history: hypertension Medications and Allergies Allergies Allergy/AdvReac Type Severity Reaction Status Date / Time No Known Allergies Allergy Unverified 08/05/17 21:36 Home Medications Medication Instructions Recorded Confirmed Last Taken Type Amantadine HCl [Amantadine] 100 mg PO DAILY 08/10/17 03/31/18 Unknown History Anastrozole (Nf) [Arimidex (Nf)] 1 mg PO DAILY 08/10/17 03/31/18 Unknown History Rivastigmine [Exelon Patch 4.6 mg TP Q24HR 08/10/17 03/31/18 Unknown History 4.6mg/24hr] glipiZIDE [Glipizide] 5 mg PO DAILY 08/10/17 03/31/18 Unknown History Active Meds: Active Medications Acetaminophen (Tylenol) 650 mg PO Q4H PRN PRN Reason: Pain MILD(1-3)/Fever >100.5/[place] Albuterol (Proventil) 2.5 mg IH Q4HRT PRN PRN Reason: Shortness Of Breath Amantadine HCl (Symmetrel) 100 mg PO DAILY [facility] Last Admin: 04/02/18 11:24 Dose: Not Given Documented by: Sodium Chloride (Nacl 0.45% 1000 Ml) 1,000 mls @ 50 mls/hr IV DIRECT [facility] Last Admin: 04/01/18 22:08 Dose: 50 mls/hr Documented by: Miscellaneous Medication (Anastrozole (Nf)) 1 mg PO DAILY [facility] Morphine Sulfate (Morphine) 2 mg IV Q4H PRN PRN Reason: Pain, Moderate (4-6) Ondansetron HCl (Zofran) 4 mg IV Q8H PRN PRN Reason: Nausea And Vomiting Last Admin: 04/01/18 13:32 Dose: 4 mg Documented by: Oxycodone/Acetaminophen (Percocet 5/325) 1 tab PO Q6H PRN PRN Reason: Pain, Moderate (4-6) Last Admin: 04/01/18 23:24 Dose: 1 tab Documented by: Rivastigmine (Exelon) 4.6 mg TD Q24HR NIGEL Last Admin: 04/02/18 11:24 Dose: Not Given Documented by: Sodium Chloride (Sodium Chloride Flush Syringe 10 Ml) 10 ml IV BID NIGEL Last Admin: 04/02/18 11:25 Dose: 10 ml Documented by: Sodium Chloride (Sodium Chloride Flush Syringe 10 Ml) 10 ml IV PRN PRN PRN Reason: LINE FLUSH Physical Examination - Physical exam Narrative exam: On physical exam patient was noted to have mild swelling noted over the right humeral shaft patient was somewhat combative and and stated she does not want to be touched. No redness or erythema patient was moving arm with slight pain noted all the other extremities appear to move freely there were no deformities seen again patient is confused and somewhat combative which limited our ability to evaluate physically hurt bony status Eyes: PERRL ENT: Positive: clear oral mucosa Respiratory effort: normal Respiratory: bilateral: CTA Rhythm: regular Heart Sounds: Positive: S1 & S2 General gastrointestinal: Positive: soft, non-tender, non-distended, normal bowel sounds Integumentary: clear, warm, dry Neurologic: Positive: CNII-XII intact, moves all extremities, gait normal. Negative: focal deficits Assessment and Plan Assessment - right humerus fracture secondary to metastatic lesion Recommendations - will obtain a skeletal survey to rule out other metastatic lesions, patient is apparently mobile at [facility] therefore I would recommend operative fixation of fracture with intramedullary nail
[2018-04-02] MEDS: NORVASC PO SCH (18:21)
--- NOTE | 2018-04-02 18:24 | Progress Note ---
Assessment and Plan Assessment and plan: Patient is a 77 yo woman with a SNF at [facility] with Breast Cancer (Patient declined treatment per chart), Dementia, HTN, DM, Schizophrenia and Debility who presents with Right arm pain after a fall. Patient evaluated in ED and found to have a Right humerus fracture. Ortho consulted in ED. No further history obtainable. -Right arm pains, right humerus fracture: d/w Ortho -Breast cancer with metastatic disease; consulted Heme/onc -Dementia -DVT prophylaxis reviewed History Interval history: Patient was seen and examined. Follow-up on current diagnosis. Overnight uneventful. Patient denies any chest pain, shortness breath, nausea/vomiting or severe headaches. Imaging, nursing note, chart, labs and old chart reviewed. Discussed with patient. Gen: WDWN, NAD, Awake, and confused HEENT: NCAT, EOMI, PERRL, OP Clear Neck: supple, no adenopathy, no thyromegaly, no JVD CVS/Heart: RRR, normal S1S2, pulses present bilaterally Chest/Lungs: CTA B, Symmetrical chest expansion, good air entry bilaterally GI/Abdomen: soft, NTND, good bowel sounds, no guarding or rebound /Bladder: no suprapubic tenderness, no CVA or paraspinal tenderness Extermity/Skin: no c/c/e, no obvious rash MSK: FROM x 4 Neuro: CN 2-12 grossly intact, no new focal deficits Psych: confused Hospitalist Physical - Physical exam Narrative exam: Gen: chronically disable, awake and confused HEENT: NCAT, EOMI, PERRL, OP Clear Neck: supple, no adenopathy, no thyromegaly, no JVD CVS/Heart: RRR, normal S1S2, pulses present bilaterally Chest/Lungs: CTA B, Symmetrical chest expansion, good air entry bilaterally GI/Abdomen: soft, NTND, good bowel sounds, no guarding or rebound /Bladder: no suprapubic tenderness, no CVA or paraspinal tenderness Extermity/Skin: no c/c/e, no obvious rash MSK: sROM x 4 Neuro: CN 2-12 grossly intact, doesnt follow commands Psych: calm - Constitutional Vitals: Temp Pulse Resp BP Pulse Ox 98.1 F 81 20 189/95 94 04/02/18 16:19 04/02/18 16:19 04/02/18 16:19 04/02/18 16:19 04/02/18 16:19 General appearance: Present: mild distress, obese Results - Labs CBC & Chem 7: 03/31/18 13:23 03/31/18 13:23 Labs: Laboratory Last Values WBC 6.1 K/mm3 (4.5-11.0) 03/31/18 13:23 RBC 5.20 M/mm3 (3.65-5.03) H 03/31/18 13:23 Hgb 14.5 gm/dl (10.1-14.3) H 03/31/18 13:23 Hct 42.1 % (30.3-42.9) 03/31/18 13:23 MCV 81 fl (79-97) 03/31/18 13:23 MCH 28 pg (28-32) 03/31/18 13:23 MCHC 34 % (30-34) 03/31/18 13:23 RDW 15.0 % (13.2-15.2) 03/31/18 13:23 Plt Count 295 K/mm3 (140-440) 03/31/18 13:23 Lymph % (Auto) 30.2 % (13.4-35.0) 03/31/18 13:23 [place] % (Auto) 12.1 % (0.0-7.3) H 03/31/18 13:23 Eos % (Auto) 1.0 % (0.0-4.3) 03/31/18 13:23 Baso % (Auto) 0.9 % (0.0-1.8) 03/31/18 13:23 Lymph # 1.9 K/mm3 (1.2-5.4) 03/31/18 13:23 [place] # 0.7 K/mm3 (0.0-0.8) 03/31/18 13:23 Eos # 0.1 K/mm3 (0.0-0.4) 03/31/18 13:23 Baso # 0.1 K/mm3 (0.0-0.1) 03/31/18 13:23 Seg Neutrophils % 55.8 % (40.0-70.0) 03/31/18 13:23 Seg Neutrophils # 3.4 K/mm3 (1.8-7.7) 03/31/18 13:23 PT 13.0 Sec. (12.2-14.9) 03/31/18 13:23 INR 0.94 (0.87-1.13) 03/31/18 13:23 APTT 27.5 Sec. (24.2-36.6) 03/31/18 13:23 Sodium 141 mmol/L (137-145) 03/31/18 13:23 Potassium 3.4 mmol/L (3.6-5.0) L 03/31/18 13:23 Chloride 98.0 mmol/L (98-107) 03/31/18 13:23 Carbon Dioxide 30 mmol/L (22-30) 03/31/18 13:23 Anion Gap 16 mmol/L 03/31/18 13:23 BUN 15 mg/dL (7-17) 03/31/18 13:23 Creatinine 0.5 mg/dL (0.7-1.2) L 03/31/18 13:23 Estimated GFR > 60 ml/min 03/31/18 13:23 BUN/Creatinine Ratio 30 % 03/31/18 13:23 Glucose 175 mg/dL (65-100) H 03/31/18 13:23 POC Glucose 110 (70-105) H 04/02/18 16:25 Calcium 9.9 mg/dL (8.4-10.2) 03/31/18 13:23 Total Bilirubin 0.80 mg/dL (0.1-1.2) 03/31/18 13:23 Direct Bilirubin 0.3 mg/dL (0-0.2) H 03/31/18 13:23 Indirect Bilirubin 0.5 mg/dL 03/31/18 13:23 AST 39 units/L (5-40) 03/31/18 13:23 ALT 22 units/L (7-56) 03/31/18 13:23 Alkaline Phosphatase 153 units/L (35-129) H 03/31/18 13:23 Total Protein 7.8 g/dL (6.3-8.2) 03/31/18 13:23 Albumin 3.2 g/dL (3.9-5) L 03/31/18 13:23 Albumin/Globulin Ratio 0.7 % 03/31/18 13:23 Urine Color [place] (Yellow) 03/31/18 16:13 Urine Turbidity Clear (Clear) 03/31/18 16:13 Urine pH 5.0 (5.0-7.0) 03/31/18 16:13 Ur Specific [place] 1.018 (1.003-1.030) 03/31/18 16:13 Urine Protein <15 mg/dl mg/dL (Negative) 03/31/18 16:13 Urine Glucose (UA) Neg mg/dL (Negative) 03/31/18 16:13 Urine Ketones Tr mg/dL (Negative) 03/31/18 16:13 Urine Blood Neg (Negative) 03/31/18 16:13 Urine Nitrite Neg (Negative) 03/31/18 16:13 Urine Bilirubin Neg (Negative) 03/31/18 16:13 Urine Urobilinogen 4.0 mg/dL (<2.0) 03/31/18 16:13 Ur Leukocyte Esterase Neg (Negative) 03/31/18 16:13 Urine WBC (Auto) 3.0 /HPF (0.0-6.0) 03/31/18 16:13 Urine RBC (Auto) 1.0 /HPF (0.0-6.0) 03/31/18 16:13 U Epithel Cells (Auto) < 1.0 /HPF (0-13.0) 03/31/18 16:13 Hyaline Casts 4 /LPF 03/31/18 16:13 Granular Casts 1 /LPF 03/31/18 16:13 Urine Mucus 3+ /HPF 03/31/18 16:13 Nutrition/Malnutrition Assess - Dietary Evaluation Nutrition/Malnutrition Findings: Nutrition Notes Start: 04/01/18 11:29 Freq: Status: Active Protocol: Document 04/01/18 11:29 [facility] (Rec: 04/01/18 11:30 [facility] SRW- [id number]) Nutrition Notes Need for Assessment generated from: Low BMI Initial or Follow up Brief Note Height 5 ft Weight 76.18 kg [place] Body Weight (kg) 45.45 BMI 32.8 Subjective/Other Information Pt mistakingly screened for low BMI.
[2018-04-03 05:07] LABS: Hematocrit 41.4 % (30.3-42.9); Hemoglobin 14.5 gm/dl (10.1-14.3); Mean Corpuscular HGB Conc 35 % (30-34); Mean Corpuscular Volume 81 fl (79-97); Platelet Count 277 K/mm3 (140-440); Red Blood Count 5.11 M/mm3 (3.65-5.03); Red Cell Distribution Width 14.5 % (13.2-15.2)
[2018-04-03 05:26] LABS: BUN/Creatinine Ratio 15; Blood Urea Nitrogen 6 mg/dL (7-17); Calcium 9.5 mg/dL (8.4-10.2); Hemolysis Index 6
--- NOTE | 2018-04-03 08:33 | Event Note ---
Date: 04/03/18 [id number] d/w daughter and sister multiple lytic lesions ? path fracture XRT eval may help they are keen for faslodex injection d/w family that they can follow with dr rhodes - they have not seen her for 5 years
[2018-04-03] MEDS: EXELON TD SCH (11:46)
[2018-04-03] MEDS: NORVASC PO SCH (11:49)
[2018-04-03] MEDS: SYMMETREL PO SCH (11:51)
--- NOTE | 2018-04-03 11:57 | Consultation ---
REFERRING PHYSICIAN: Pepe Rae MD REASON FOR CONSULTATION: History of breast cancer, bone lesions and pathological fracture. HISTORY OF PRESENT ILLNESS: I saw the patient, a 77 years old female in the medical floor. The patient is a intermediate resident at [facility] with breast cancer. I spoke to the daughter. The patient's breast cancer was diagnosed in 2012. The patient had seen Dr. Muhammad, but never followed up. The patient was prescribed Arimidex. The patient has history of dementia, hypertension, diabetes, schizophrenia and debility. The patient had a fall and right arm pain. The patient has been transported, had a pathological right humerus fracture that has been suspected. Orthopedics has been consulted. The patient is able to move the right hand, but not fully. CT of the right arm and bone scan have been done, which showed lytic lesions. I have been asked to evaluate the patient for this. I spoke to the patient's daughter and sister over telephone. Later, I spoke to Dr. Rae. At this time, the patient's main complaints include right arm pain. She says she is not able to eat food. No headache, no vision issues. No chest pain, no vomiting, no diarrhea. No hematemesis, no hematochezia. No fever. PAST MEDICAL HISTORY: Includes right breast cancer status post lumpectomy and was on Arimidex. This was in 2013, done at [facility]; however, I do not see pathology. Other issues include diabetes, mention of dementia, mention of schizophrenia and the patient was at senior living facility. SURGICAL HISTORY: Right lumpectomy. SOCIAL HISTORY: Single. No history of alcohol usage. FAMILY HISTORY: Hypertension. ALLERGIES: None. HOME MEDICATIONS: Include amantadine, anastrozole, glipizide, rivastigmine. PHYSICAL EXAMINATION: VITAL SIGNS: Temperature 97, pulse 91, respirations 20, BP 155/84. HEENT: No pallor, no icterus. NECK: No neck lymph nodes. HEART: S1, S2. LUNGS: Clear to auscultation anteriorly. ABDOMEN: Soft. Right breast scar of surgery present, lump is present. Abdomen is soft. EXTREMITIES: No calf tenderness. Has swelling in the right humeral area. NEUROLOGIC: Awake, follows simple commands, speaks Tristanian and Creole. LABORATORY DATA: White cell 6, hemoglobin 14, MCV 81, platelet 277. Potassium is 3.3, creatinine 0.4, calcium 9.5, bilirubin 0.8, AST 39, alkaline phosphatase 153. RADIOLOGY STUDIES: X-ray survey shows lytic lesions. Upper extremity CT was done. ASSESSMENT AND PLAN: 1. History of right breast cancer in 2012, status post lumpectomy and was placed on Arimidex. 2. The patient is at intermediate. As per daughter, the patient has been getting Arimidex, details of this is not clear. The patient has not seen an oncologist for 5 years. 3. Pathological fracture, suspected right humerus. 4. Multiple lytic lesions. 5. Mention of dementia. 6. Mention of diabetes, history of hypertension. 7. History of schizophrenia. 8. Because of multiple lytic lesions, the patient's family are not keen for surgery. I am not sure the challenges one would face in a patient with diffuse metastatic disease as far as bone recovery is concerned. 9. The patient's calcium is normal. This is surprising in the presence of so many lytic lesions. 10. Alkaline phosphatase raised likely secondary to bone metastases. 11. The patient's family members have question regarding soft tissue metastases. We will look into radiology for same. 12. The had question about PET scan. 13. They are requesting a hormone blockage treatment injection of Faslodex. This will be done as an outpatient. They are keen for Femara at this time. I discussed with Dr. Rae. JOB# [id number] NM/NTS
[2018-04-03 12:19] VITALS: BP 145/91
--- NOTE | 2018-04-03 12:56 | Progress Note ---
Assessment and Plan Assessment and plan: Patient is a 77 yo woman with a SNF at [facility] with Breast Cancer (Patient declined treatment per chart), Dementia, HTN, DM, Schizophrenia and Debility who presents with AMS and Right arm pain after a fall. Patient evaluated in ED and found to have a Right humerus fracture. Ortho consulted in ED. No further history obtainable. -Acute metabolic encephalopathy, poa from fracture -Pathological Ribs, humerus fractures, and other sites due to metastatic breast cancer, poa -Right arm pains, right humerus fracture: d/w Ortho -Breast cancer with metastatic disease; consulted Heme/onc and they do not recommend surgery to repair fractures, -Advance Dementia -DVT prophylaxis reviewed Notified Dr. Otto, will discharge back to OR History Interval history: Patient was seen and examined. Follow-up on current diagnosis of AMS. Patient has severe dementia. Overnight uneventful. Imaging, nursing note, chart, labs and old chart reviewed. Hospitalist Physical - Physical exam Narrative exam: Gen: chronically disable, awake and confused HEENT: NCAT, EOMI, PERRL, OP Clear Neck: supple, no adenopathy, no thyromegaly, no JVD CVS/Heart: RRR, normal S1S2, pulses present bilaterally Chest/Lungs: CTA B, Symmetrical chest expansion, good air entry bilaterally GI/Abdomen: soft, NTND, good bowel sounds, no guarding or rebound /Bladder: no suprapubic tenderness, no CVA or paraspinal tenderness Extermity/Skin: no c/c/e, no obvious rash MSK: sROM x 4 Neuro: CN 2-12 grossly intact, doesnt follow commands Psych: calm - Constitutional Vitals: Temp Pulse Resp BP Pulse Ox 98.2 F 74 20 154/86 96 04/03/18 12:00 04/03/18 12:00 04/03/18 12:00 04/03/18 12:00 04/03/18 12:00 General appearance: Present: obese Results - Labs CBC & Chem 7: 04/03/18 04:50 04/03/18 04:50 Labs: Laboratory Last Values WBC 6.8 K/mm3 (4.5-11.0) 04/03/18 04:50 RBC 5.11 M/mm3 (3.65-5.03) H 04/03/18 04:50 Hgb 14.5 gm/dl (10.1-14.3) H 04/03/18 04:50 Hct 41.4 % (30.3-42.9) 04/03/18 04:50 MCV 81 fl (79-97) 04/03/18 04:50 MCH 28 pg (28-32) 04/03/18 04:50 MCHC 35 % (30-34) H 04/03/18 04:50 RDW 14.5 % (13.2-15.2) 04/03/18 04:50 Plt Count 277 K/mm3 (140-440) 04/03/18 04:50 Lymph % (Auto) 30.2 % (13.4-35.0) 03/31/18 13:23 [place] % (Auto) 12.1 % (0.0-7.3) H 03/31/18 13:23 Eos % (Auto) 1.0 % (0.0-4.3) 03/31/18 13:23 Baso % (Auto) 0.9 % (0.0-1.8) 03/31/18 13:23 Lymph # 1.9 K/mm3 (1.2-5.4) 03/31/18 13:23 [place] # 0.7 K/mm3 (0.0-0.8) 03/31/18 13:23 Eos # 0.1 K/mm3 (0.0-0.4) 03/31/18 13:23 Baso # 0.1 K/mm3 (0.0-0.1) 03/31/18 13:23 Seg Neutrophils % 55.8 % (40.0-70.0) 03/31/18 13:23 Seg Neutrophils # 3.4 K/mm3 (1.8-7.7) 03/31/18 13:23 PT 13.0 Sec. (12.2-14.9) 03/31/18 13:23 INR 0.94 (0.87-1.13) 03/31/18 13:23 APTT 27.5 Sec. (24.2-36.6) 03/31/18 13:23 Sodium 140 mmol/L (137-145) 04/03/18 04:50 Potassium 3.3 mmol/L (3.6-5.0) L 04/03/18 04:50 Chloride 95.0 mmol/L (98-107) L 04/03/18 04:50 Carbon Dioxide 30 mmol/L (22-30) 04/03/18 04:50 Anion Gap 18 mmol/L 04/03/18 04:50 BUN 6 mg/dL (7-17) L 04/03/18 04:50 Creatinine 0.4 mg/dL (0.7-1.2) L 04/03/18 04:50 Estimated GFR > 60 ml/min 04/03/18 04:50 BUN/Creatinine Ratio 15 % 04/03/18 04:50 Glucose 148 mg/dL (65-100) H 04/03/18 04:50 POC Glucose 160 (70-105) H 04/03/18 11:22 Calcium 9.5 mg/dL (8.4-10.2) 04/03/18 04:50 Total Bilirubin 0.80 mg/dL (0.1-1.2) 03/31/18 13:23 Direct Bilirubin 0.3 mg/dL (0-0.2) H 03/31/18 13:23 Indirect Bilirubin 0.5 mg/dL 03/31/18 13:23 AST 39 units/L (5-40) 03/31/18 13:23 ALT 22 units/L (7-56) 03/31/18 13:23 Alkaline Phosphatase 153 units/L (35-129) H 03/31/18 13:23 Total Protein 7.8 g/dL (6.3-8.2) 03/31/18 13:23 Albumin 3.2 g/dL (3.9-5) L 03/31/18 13:23 Albumin/Globulin Ratio 0.7 % 03/31/18 13:23 Urine Color [place] (Yellow) 03/31/18 16:13 Urine Turbidity Clear (Clear) 03/31/18 16:13 Urine pH 5.0 (5.0-7.0) 03/31/18 16:13 Ur Specific [place] 1.018 (1.003-1.030) 03/31/18 16:13 Urine Protein <15 mg/dl mg/dL (Negative) 03/31/18 16:13 Urine Glucose (UA) Neg mg/dL (Negative) 03/31/18 16:13 Urine Ketones Tr mg/dL (Negative) 03/31/18 16:13 Urine Blood Neg (Negative) 03/31/18 16:13 Urine Nitrite Neg (Negative) 03/31/18 16:13 Urine Bilirubin Neg (Negative) 03/31/18 16:13 Urine Urobilinogen 4.0 mg/dL (<2.0) 03/31/18 16:13 Ur Leukocyte Esterase Neg (Negative) 03/31/18 16:13 Urine WBC (Auto) 3.0 /HPF (0.0-6.0) 03/31/18 16:13 Urine RBC (Auto) 1.0 /HPF (0.0-6.0) 03/31/18 16:13 U Epithel Cells (Auto) < 1.0 /HPF (0-13.0) 03/31/18 16:13 Hyaline Casts 4 /LPF 03/31/18 16:13 Granular Casts 1 /LPF 03/31/18 16:13 Urine Mucus 3+ /HPF 03/31/18 16:13 Nutrition/Malnutrition Assess - Dietary Evaluation Nutrition/Malnutrition Findings: Nutrition Notes Start: 04/01/18 11:29 Freq: Status: Active Protocol: Document 04/01/18 11:29 HEATHER (Rec: 04/01/18 11:30 [facility] SRW- [id number]) Nutrition Notes Need for Assessment generated from: Low BMI Initial or Follow up Brief Note Height 5 ft Weight 76.18 kg [place] Body Weight (kg) 45.45 BMI 32.8 Subjective/Other Information Pt mistakingly screened for low BMI.
[2018-04-03] MEDS: SODIUM CHLORIDE FLUSH SYRINGE 10 ML IV SCH (13:08)
--- NOTE | 2018-04-03 13:09 | Progress Note ---
Assessment and Plan Metastatic breast CA with multiple bony lesions throughout axial skeleton Await metastatic workup Discussed operative fixation with the daughter states she wouldn't prefer palliative treatment Subjective Date of service: 04/03/18 Interval history: More alert and less combative today Objective Vital signs: Vital Signs - 12hr 04/03/18 04/03/18 04/03/18 04:46 07:59 08:30 Temperature 97.3 F L 98.3 F Pulse Rate 91 H 72 Respiratory 20 18 Rate Blood Pressure 155/84 161/88 Blood Pressure [Left] O2 Sat by Pulse 98 94 100 Oximetry 04/03/18 04/03/18 11:19 12:00 Temperature 97.5 F L 98.2 F Pulse Rate 93 H 74 Respiratory 18 20 Rate Blood Pressure 145/91 Blood Pressure 154/86 [Left] O2 Sat by Pulse 96 96 Oximetry - Labs CBC & BMP: 04/03/18 04:50 04/03/18 04:50 Labs: Abnormal lab results 04/02/18 04/03/18 04/03/18 Range/Units 16:25 03:19 04:50 RBC 5.11 H (3.65-5.03) M/mm3 Hgb 14.5 H (10.1-14.3) gm/dl MCHC 35 H (30-34) % Potassium (3.6-5.0) mmol/L Chloride (98-107) mmol/L BUN (7-17) mg/dL Creatinine (0.7-1.2) mg/dL Glucose (65-100) mg/dL POC Glucose 110 H 151 H (70-105) 04/03/18 04/03/18 04/03/18 Range/Units 04:50 08:02 11:22 RBC (3.65-5.03) M/mm3 Hgb (10.1-14.3) gm/dl MCHC (30-34) % Potassium 3.3 L (3.6-5.0) mmol/L Chloride 95.0 L (98-107) mmol/L BUN 6 L (7-17) mg/dL Creatinine 0.4 L (0.7-1.2) mg/dL Glucose 148 H (65-100) mg/dL POC Glucose 121 H 160 H (70-105)
--- NOTE | 2018-04-03 13:27 | Discharge Summary ---
Providers - Providers Date of Admission: 03/31/18 20:14 Date of discharge: 04/03/18 Attending physician: DAVON MCPHERSON 03/31/18 19:52 Consult to Physician [CONS] Stat Comment: Dr. Dia spoke with Dr. Otto @ 1950 Consulting Provider: JAMEEL OTTO Physician Instructions: Reason For Exam: right midshaft humerus pathological fracture 04/02/18 16:55 Consult to Physician [CONS] Routine Comment: CONSULT COMPLETED Consulting Provider: SHANDRA ARMSTRONG Physician Instructions: Reason For Exam: Metastatic cancer, need ok to repair long bones Hospitalization Condition: Stable Hospital course: Patient is a 77 yo woman with a SNF at [facility] with Breast Cancer (Patient declined treatment per chart and verified by daughter who is a Nurse), Dementia, HTN, DM type 2, Schizophrenia and Debility who presents with AMS and Right arm pain after a fall. Patient evaluated in ED and found to have a Right humerus fracture. Ortho consulted in ED. No further history obtainable. -Acute metabolic encephalopathy, poa from fracture -Pathological Ribs, humerus fractures, and other sites due to metastatic breast cancer, poa -Right arm pains, right humerus fracture: d/w Ortho -Breast cancer with metastatic disease; consulted Heme/onc and spoke to Dr. Armstrong and he does not recommend surgery to repair fractures at this time. He wants to treat -Advance Dementia -Mild malnutrition: will need 1:1 feeding -DVT prophylaxis reviewed Notified Dr. Otto that Dr. Armstrong does not recommend surgery to repair fractures at this time, Dr. Armstrong states, "there is NO role for surgery", I asked him to speak with Ortho, Dr. Otto and I followed Dr. Otto phone number to him; therefore, I will discharge back to [place] D/W daughter Nena Almonte who is a RN. She verified that mother did not want treatment for Breast cancer in the past. I updated her and Plan given to discharge back to [facility] which was not well received by Daughter because she does not like the care at [facility]. I told daughter she can request transfer from [facility] when patient gets back there and daughter states that transfer to another facility was already in the works. I believe Patient is Hospice appropriate but Dr. Armstrong is evaluating the metastatic disease to determine treatment options, so hospice was not discussed. In my professional opinion, patient is a poor surgical candidate at this time, due to poor functional state at present, presumed metastatic breast cancer to the bone, along with other co-morbidities. Also, since patient did not want treatment for Breast cancer in the past, why is it Ethically to treat the Breast Cancer now, when patient is unable to make informed decision for herself, my concern was expressed to Dr. Armstrong, who will follow up as outpatient, Not Dr. Muhammad per Dr. Armstrong. Disposition: [place]-03 SNF [facility] Time spent for discharge: 36 minutes Core Measure Documentation - Palliative Care Palliative Care/ Comfort Measures: Not Applicable - Core Measures Any of the following diagnoses?: none - VTE Discharge Requirements Deep Vein Thrombosis/Pulmonary Embolism Present on Admission: No Has pt received <5 days of overlap therapy or INR<2.0: No Anticoagulant overlap therapy prescribed at discharge: No Contraindication No Overlap Therapy order at DC: Not Indicated Exam - Physical Exam Narrative exam: Gen: chronically disable, awake and confused HEENT: NCAT, EOMI, PERRL, OP Clear Neck: supple, no adenopathy, no thyromegaly, no JVD CVS/Heart: RRR, normal S1S2, pulses present bilaterally Chest/Lungs: CTA B, Symmetrical chest expansion, good air entry bilaterally GI/Abdomen: soft, NTND, good bowel sounds, no guarding or rebound /Bladder: no suprapubic tenderness, no CVA or paraspinal tenderness Extermity/Skin: no c/c/e, no obvious rash MSK: sROM x 4 Neuro: CN 2-12 grossly intact, doesnt follow commands Psych: calm - Constitutional Vitals: Temp Pulse Resp BP Pulse Ox 98.2 F 74 20 154/86 96 04/03/18 12:00 04/03/18 12:00 04/03/18 12:00 04/03/18 12:04/03/18 12:00 Plan Activity: up only with assistance, fall precautions, other (no strenous activity) Diet: diabetic, advance as tolerated (NEED 1:1 assist with feedings. ) Additional Instructions: Follow up CT scans with Dr. Armstrong Follow up with: CJ ROMERO [Other] - 3-5 Days SHANDRA ARMSTRONG MD [Staff Physician] - 7 Days JAMEEL OTTO MD [Staff Physician] - 7 Days Prescriptions: amLODIPine [Norvasc] 5 mg PO QDAY #30 tablet Insulin Aspart [Novolog] 1 dose SQ ACHS PRN #100 units PRN Reason: Hyperglycemia oxyCODONE /ACETAMINOPHEN [Percocet 5/325 mg] 1 tab PO Q6H PRN #15 tablet PRN Reason: Pain , Severe (7-10)
--- NOTE | 2018-04-03 16:04 | Cat Scan Report ---
FINAL REPORT EXAM: CT ABDOMEN PELVIS W CON HISTORY: h/o breast ca with stage 4 TECHNIQUE: CT examination of the ABDOMEN after IV contrast CT examination of the PELVIS after IV contrast PRIORS: Chest CT 04/03/2018 FINDINGS: Patient arm in the diagnostic [id number] degrades image quality and limits the examination. Linear scar versus atelectasis both lung bases. Nonspecific bilateral posterior pleural thickening ma y be scar or mild inflammation. Degenerative change in the regional skeleton. Healed or healing right posterior and lateral rib fract ures. Grade 1 degenerative anterolisthesis at L4-5. No evidence of spondylolysis. Multiple lytic lesions suspicious for skeletal metastasis in several posterior ribs, multiple thoraci c and lumbar vertebrae, bilateral iliac wing, left sacrum, bilateral pubic rami. Large calcified gallstones in gallbladder lumen. No CT evidence of other biliary pathology. Normal-appearing liver, adrenals, pancreas, and spleen. Intact normal caliber abdominal aorta with mo derate calcified atherosclerotic plaque. Normal caliber IVC. Normal-appearing kidneys and visible ure teral segments. Pelvic ureters partly obscured by pelvic anatomy. Intact abdominal wall without herni a. No retroperitoneal adenopathy. No evidence of mesenteric mass. Normal-appearing stomach and duoden um. No small bowel distention in the abdomen and pelvis. Nonspecific mural thickening in the urinary bladder. No pelvic free fluid. Normal-appearing atrophic uterus versus vaginal cuff. No adnexal abnormality. N ormal-appearing descending and sigmoid colon. No gross ascites, free air, or colonic distention. Norm al-appearing cecum, terminal ileum, and appendix. IMPRESSION: Nonspecific diffuse urinary bladder mural thickening may be edema, inflammation, or cystitis Multiple skeletal lytic lesions suspicious for metastasis Posterior pleural thickening in both lung bases may be scar or mild inflammation Linear scar versus atelectasis both lung bases Large calcified gallstones in gallbladder lumen Healed or healing posterior and lateral right rib fractures Grade 1 degenerative anterolisthesis at L4-5 without spondylolysis
--- NOTE | 2018-04-03 16:13 | Cat Scan Report ---
FINAL REPORT EXAM: CT CHEST W CON HISTORY: h/o breast ca with stage 4 TECHNIQUE: CT examination of the chest after IV contrast PRIORS: AP CT 04/03/2018 FINDINGS: Abdominal findings can be found in same day AP CT radiology report. Moderate cardiomegaly without pericardial effusion. Intact normal caliber thoracic aorta. Normal-appearing esophagus. No evidence of hilar mass or medias tinal adenopathy. Nonspecific enhancing heterogeneous nodule is noted in the right axilla measuring 19 mm. Several othe r enhancing nodules are noted adjacent to this region in the axillary fat. These may reflect adenopat hy, reactive or neoplastic. Bilateral posterior nonspecific pleural thickening may be scar or inflammation/infection. Adjacent bi lateral lung base scar and/or atelectasis. Patient arm in the diagnostic [id number] degrades image quality and limits the examination. Multifocal lytic lesions suspicious or skeletal metastasis in the right scapular glenoid, multiple th oracic vertebral bodies, multiple lumbar vertebral bodies, sternum, and left ribs. Slight compression fracture deformity of T10 may be pathologic No pneumothorax or definite pleural effusion. No CT evidence of lung mass or pulmonary nodule. IMPRESSION: Multiple enhancing nodules in the right axilla suggestive of adenopathy, reactive and/or neoplastic Multiple skeletal lytic lesions highly suspicious for multifocal metastasis Slight compression fracture deformity of T10 may be pathologic Moderate cardiomegaly Bilateral posterior nonspecific pleural thickening may be scar. Differential includes inflammation an d/or infection. Subjacent bilateral lung base density may be parenchymal scar or atelectasis
[2018-04-04] MEDS ORDERED: NON-FORMULARY (Anastrozole (Nf) 1 MG) PO SCH (10:00)
== END 2018-04-03 18:30 | DRG 542 ==
LOC: ED 11:36 → 3B-SURG 20:14
PROVIDERS: ADMIT Internal Medicine; ATTEND Internal Medicine
DX: M84.521A Pathological fracture in neoplastic disease, right humerus, initial encounter for fracture (principal); G93.41 Metabolic encephalopathy; S22.41XA Multiple fractures of ribs, right side, initial encounter for closed fracture; E44.1 Mild protein-calorie malnutrition; F01.50 Vascular dementia, unspecified severity, without behavioral disturbance, psychotic disturbance, mood disturbance, and anxiety; W18.39XA Other fall on same level, initial encounter; E11.9 Type 2 diabetes mellitus without complications; F20.9 Schizophrenia, unspecified; C50.911 Malignant neoplasm of unspecified site of right female breast; M89.9 Disorder of bone, unspecified; Z82.49 Family history of ischemic heart disease and other diseases of the circulatory system; Z79.84 Long term (current) use of oral hypoglycemic drugs; Y93.89 Activity, other specified; Y92.128 Other place in nursing home as the place of occurrence of the external cause; Y99.8 Other external cause status; Z68.32 Body mass index [BMI] 32.0-32.9, adult
CPT/HCPCS: 36415; 71045; 71260; 74177; 77074; 80048; 80076; 81001; 82962; 85025; 85027; 85610; 85730; 93005; 93010; 94760; 96361; 96374; 96375; 96376; G0378; J2270; J2405; J3246; J7030; Q9967

== ENCOUNTER 2018-05-09 14:26 | Inpatient (IN) | payer MEDICARE, MEDICAID ==
[2018-05-09] MEDS ORDERED: MORPHINE IV ONE ×2 (16:12→19:07)
--- NOTE | 2018-05-09 16:22 | Emergency Department Report ---
HPI - General Chief Complaint: Extremity Injury, Upper Time Seen by Provider: 05/09/18 15:23 - HPI HPI: 77-year-old female presents to the emergency department via EMS from [facility] after she had a fall just prior to arrival. Apparently the patient was seen standing behind and pushing a wheelchair and she fell onto her left side. Apparently per the nurse, the patient did not hit her head or have any loss of consciousness. She has some pain and deformity to the left upper arm. She has a past medical history of [id number] diabetes, hypertension, schizophrenia and history of breast cancer with bony metastasis. Her oncologist is Dr Armstrong. The patient speaks mostly tajik. ED Past Medical Hx - Past Medical History Hx Hypertension: Yes Hx Heart Attack/AMI: No Hx Congestive Heart Failure: No Hx Diabetes: Yes Hx Deep Vein Thrombosis: No Hx Pulmonary Embolism: No Hx Renal Disease: No Hx Sickle Cell Disease: No Hx Arthritis: No Hx Seizures: No Hx Kidney Stones: No Hx Psychiatric Treatment: Yes (schizophrenia) Hx Asthma: No Hx COPD: No Hx Tuberculosis: No Hx Dementia: Yes Additional medical history: legal blindness - Surgical History Hx Coronary Stent: No Hx Internal Defibrillator: No Additional Surgical History: unknown - Social History Smoking Status: Unknown if ever smoked Substance Use Type: Other - Medications Home Medications: Home Medications Medication Instructions Recorded Confirmed Last Taken Type Amantadine HCl [Amantadine] 100 mg PO DAILY 08/10/17 03/31/18 Unknown History Anastrozole (Nf) [Arimidex (Nf)] 1 mg PO DAILY 08/10/17 03/31/18 Unknown History Rivastigmine [Exelon Patch 4.6 mg TP Q24HR 08/10/17 03/31/18 Unknown History 4.6mg/24hr] ALBUTEROL NEB's [Proventil 0.083% 2.5 mg IH Q4HRT PRN #30 nebu 04/03/18 Unknown Rx NEBS] Acetaminophen [Acetaminophen TAB] 650 mg PO Q4H PRN #15 tablet 04/03/18 Unknown Rx Insulin Aspart [Novolog] 1 dose SQ ACHS PRN #100 units 04/03/18 Unknown Rx amLODIPine [Norvasc] 5 mg PO QDAY #30 tablet 04/03/18 Unknown Rx oxyCODONE /ACETAMINOPHEN [Percocet 1 tab PO Q6H PRN #15 tablet 04/03/18 Unknown Rx 5/325 mg] ED Review of Systems ROS: Stated complaint: FALL Other details as noted in HPI Comment: Unobtainable due to pts medical conditions Musculoskeletal: joint swelling, arthralgia Physical Exam - Physical Exam Vital Signs: Vital Signs 05/09/18 15:32 Temperature 97.7 F Pulse Rate 105 H Respiratory 18 Rate Blood Pressure 147/69 [Right] O2 Sat by Pulse 97 Oximetry Physical Exam: GENERAL: The patient is well-developed well-nourished. HEENT: Normocephalic. Atraumatic. Patient has moist mucous membranes. EYES: Extraocular motions are intact. Pupils are equal and reactive to light bilaterally. NECK: Supple. Trachea is midline. CHEST/LUNGS: Clear to auscultation. There is no respiratory distress noted. HEART/CARDIOVASCULAR: Regular. There is no tachycardia. There is no obvious murmur. ABDOMEN: Abdomen is soft, nontender. Patient has normal bowel sounds. There is no abdominal distention. SKIN: Skin is warm and dry. NEURO: Patient is awake but confused. Withdraws from painful stimuli. MUSCULOSKELETAL: There is tenderness to palpation along the left upper arm with the patient has an obvious deformity. Decreased range of motion of the left upper extremity secondary to pain. Radial pulse +2 over 4 and capillary refill less than 2 seconds to the affected left upper extremity. ED Course Vital Signs 05/09/18 15:32 Temperature 97.7 F Pulse Rate 105 H Respiratory 18 Rate Blood Pressure 147/69 [Right] O2 Sat by Pulse 97 Oximetry - Consultations Consultation #1: 05/09/18 19:55 I spoke with the orthopedist contact representative, Dr. Otto, who has agreed to see the patient as a consult ED Medical Decision Making - Lab Data Result diagrams: 05/09/18 17:55 - Radiology Data Radiology results: report reviewed, image reviewed interpreted by me: X-ray of the left humerus shows a mid shaft oblique fracture with displacement and overlapping of the bone. X-ray of the pelvis does not show any fracture, dislocation or any acute process. Chest x-ray does not show any pneumothorax, pleural effusion, pneumonia or obvious focal consolidation. ADDENDUM: There is a lytic lesion of the calvarium of the right posterior inferior parietal bone, image 24, approximately 2.4 x 0.7 cm consistent with osseous metastatic disease This document is electronically signed by Nery Montejo MD., May 09 2018 07:30:11 PM ET Addendum Transcribed By: WILLIS Addendum Dictated By: NERY MONTEJO MD Addendum Electronically Authenticated By: NERY MONTEJO MD Addendum Signed Date/Time: 05/09/181931 DD/ TD/TT: 05/09/1810/20/1737 PROCEDURE: CT HEAD/BRAIN WO CON HISTORY: Trauma FINDINGS: Unenhanced CT of the brain was performed and demonstrates no acute intracranial hemorrhage, extra-axial fluid collection, midline shift or mass effect. The ventricles and basal cisterns are not effaced. There are mild chronic appearing small vessels can be quite matter changes in subcortical and periventricular white matter. There is intracranial atherosclerosis. The mastoid air cells and middle ears appear clear. There is debris in both external auditory canals. There is no evidence of acute sinusitis. The bony calvarium appears intact. IMPRESSION: No acute intracranial hemorrhage This document is electronically signed by Nery Montejo MD., May 09 2018 07:27:47 PM ET Transcribed By: WILLIS Dictated By: NERY MONTEJO MD Electronically Authenticated By: NERY MONTEJO MD Signed Date/Time: 05/09/181929 PROCEDURE: CT CERVICAL SPINE WO CON HISTORY: Trauma FINDINGS: Unenhanced CT of the cervical spine was performed and data was reformatted in the sagittal and coronal planes. There are large lytic lesions within C6, T1 and T2 consistent with metastatic disease. There is near complete destruction of the T1 and T2 vertebral bodies. Smaller lytic lesions are seen within m ultiple other levels of the cervical spine. No fracture is identified. The prevertebral soft tissues are within normal limits. The pulmonary apices appear clear. There is a lytic metastasis of the right posterior parietal bone of the bony calvarium as noted on the head CT examination. There are large lytic lesions of the visualized portion of the sternum consistent with osseous metastases. IMPRESSION: Osseous metastatic disease, worst at C6, T1 and T2 but smaller lytic lesions are present within the remainder of the visualized portion of the spine as well as within the right posterior parietal bone of the bony calvarium in the sternum No fracture is seen in the cervical spine This document is electronically signed by Nery Montejo MD., May 09 2018 07:33:11 PM ET Transcribed By: WILLIS Dictated By: NERY MONTEJO MD Electronically Authenticated By: NERY MONTEJO MD Signed Date/Time: 05/09/181934 - Medical Decision Making This is a 77-year-old female with a history of breast cancer with metastatic bony lesions who has a left midshaft humerus fracture with displacement and overlapping of the bone after falling onto her left side. CT scan of the head and cervical spine were done that showed some lytic lesions but otherwise no acute fracture, dislocation or subluxation. X-ray was done of the chest did not show any pneumothorax, obvious rib fractures or any other acute process but does show some lytic lesions. X-ray of the pelvis also shows some lytic lesions. No fracture or dislocation. I spoke with the orthopedist who will see the patient is a consult. Critical Care Time: No Critical care attestation.: If time is entered above; I have spent that time in minutes in the direct care of this critically ill patient, excluding procedure time. ED Disposition Clinical Impression: Humerus shaft fracture Qualifiers: Encounter type: initial encounter Fracture type: closed Fracture morphology: oblique Fracture alignment: displaced Laterality: left Qualified Code(s): S42.332A - Displaced oblique fracture of shaft of humerus, left arm, initial encounter for closed fracture Fall Qualifiers: Encounter type: initial encounter Qualified Code(s): W19.XXXA - Unspecified fall, initial encounter Dementia Qualifiers: Dementia type: unspecified type Dementia behavioral disturbance: without behavioral disturbance Qualified Code(s): F03.90 - Unspecified dementia without behavioral disturbance Hypertension Qualifiers: Hypertension type: essential hypertension Qualified Code(s): I10 - Essential (primary) hypertension Disposition: -09 OP ADMIT IP TO THIS HOSP Is pt being admited?: Yes Condition: Fair Instructions: Hypertension (ED) Referrals: STACEY CARTER MD [Primary Care Provider] - 3-5 Days Time of Disposition: 19:58
--- NOTE | 2018-05-09 17:21 | XRay Report ---
PROCEDURE: XR CHEST 1V AP TECHNIQUE: Chest single AP HISTORY: Trauma COMPARISONS: FINDINGS: Aorta appears ectatic. Cardiac silhouette is within normal range for size. No acute pulmonary infiltr ate identified. No pleural fluid collection seen. Pulmonary vasculature is normal. IMPRESSION: Aorta appears ectatic No acute pulmonary findings. This document is electronically signed by Bowen Thornton MD., May 09 2018 05:19:23 PM ET
--- NOTE | 2018-05-09 17:25 | XRay Report ---
PROCEDURE: XR HUMERUS 2+V LT TECHNIQUE: Left humerus 2 views HISTORY: Trauma COMPARISONS: FINDINGS: There is acute traumatic oblique fracture through the mid shaft of the humerus with override of fract ure fragments and lateral displacement of the distal humerus. No additional acute bony findings. Join t spaces appear grossly unremarkable. IMPRESSION: Acute displaced mid humeral fracture. This document is electronically signed by Bowen Thornton MD., May 09 2018 05:22:44 PM ET
[2018-05-09 18:10] LABS: Basophils # (Auto) 0.1 K/mm3 (0.0-0.1); Basophils % (Auto) 1.1 % (0.0-1.8); Eosinophils % (Auto) 0.1 % (0.0-4.3); Hematocrit 39.4 % (30.3-42.9); Hemoglobin 13.5 gm/dl (10.1-14.3); Lymphocytes # (Auto) 0.9 K/mm3 (1.2-5.4); Lymphocytes % (Auto) 12.3 % (13.4-35.0); Mean Corpuscular HGB Conc 34 % (30-34); Mean Corpuscular Volume 82 fl (79-97); Monocytes # (Auto) 0.4 K/mm3 (0.0-0.8); Monocytes % (Auto) 5.9 % (0.0-7.3); Platelet Count 290 K/mm3 (140-440); Red Blood Count 4.83 M/mm3 (3.65-5.03)
[2018-05-09 18:21] LABS: Bacteria,Urine 1+ /HPF (Negative); Bilirubin,Urine NEG (Negative); Blood,Urine NEG (Negative); Color,Urine Amber (Yellow); Mucus,Urine 1+ /HPF
[2018-05-09] MEDS ORDERED: LEVAQUIN 750MG/150ML 750 MG/150 ML BAG IV ONE (18:53)
--- NOTE | 2018-05-09 19:30 | Cat Scan Report ---
PROCEDURE: CT HEAD/BRAIN WO CON HISTORY: Trauma FINDINGS: Unenhanced CT of the brain was performed and demonstrates no acute intracranial hemorrhage, extra-axial fluid collection, midline shift or mass effect. The ventricles and basal cisterns are no t effaced. There are mild chronic appearing small vessels can be quite matter changes in subcortical and periven tricular white matter. There is intracranial atherosclerosis. The mastoid air cells and middle ears appear clear. There is debris in both external auditory canals. There is no evidence of acute sinusitis. The bony calvarium appears intact. IMPRESSION: No acute intracranial hemorrhage This document is electronically signed by Gregory Montejo MD., May 09 2018 07:27:47 PM ET
--- NOTE | 2018-05-09 19:35 | Cat Scan Report ---
PROCEDURE: CT CERVICAL SPINE WO CON HISTORY: Trauma FINDINGS: Unenhanced CT of the cervical spine was performed and data was reformatted in the sagittal and coronal planes. There are large lytic lesions within C6, T1 and T2 consistent with metastatic disease. There is near complete destruction of the T1 and T2 vertebral bodies. Smaller lytic lesions are seen within multipl e other levels of the cervical spine. No fracture is identified. The prevertebral soft tissues are within normal limits. The pulmonary apices appear clear. There is a lytic metastasis of the right posterior parietal bone of the bony calvarium as noted on th e head CT examination. There are large lytic lesions of the visualized portion of the sternum consist ent with osseous metastases. IMPRESSION: Osseous metastatic disease, worst at C6, T1 and T2 but smaller lytic lesions are present within the r emainder of the visualized portion of the spine as well as within the right posterior parietal bone o f the bony calvarium in the sternum No fracture is seen in the cervical spine This document is electronically signed by Gregory Montejo MD., May 09 2018 07:33:11 PM ET
--- NOTE | 2018-05-09 19:48 | XRay Report ---
PROCEDURE: XR PELVIS 1-2V HISTORY: fall FINDINGS: Single AP view of the pelvis and hips was performed and demonstrates no fracture of the pel vis or hips. There are several lytic lesions suspected, including lesion in the left proximal femoral diaphysis approximately 1.5 cm, suspicious for osseous metastatic disease. IMPRESSION: No fracture is seen in the pelvis or hips Suspected lytic bony metastases This document is electronically signed by Gregory Montejo MD., May 09 2018 07:46:05 PM ET
[2018-05-09 20:12] LABS: Alanine Aminotransferase 22 units/L (7-56); Albumin 3.4 g/dL (3.9-5); BUN/Creatinine Ratio 20; Blood Urea Nitrogen 8 mg/dL (7-17); Calcium 9.4 mg/dL (8.4-10.2); Hemolysis Index 7
[2018-05-09] MEDS ORDERED: ZOFRAN IV PRN (22:14)
[2018-05-09] MEDS ORDERED: TYLENOL PR PRN (22:14)
[2018-05-09] MEDS ORDERED: D50W (25GM) Syringe IV PRN (22:15)
[2018-05-09] MEDS ORDERED: PROVENTIL IH PRN (22:48)
[2018-05-09] MEDS: MORPHINE IV PRN (23:04)
[2018-05-10] MEDS: MORPHINE IV PRN ×5 (02:53→22:28)
[2018-05-10] MEDS: HumuLIN R SUB-Q SCH ×5 (03:39→20:12)
[2018-05-10] MEDS ORDERED: AREDIA 60 MG in NACL 0.9% 1000 ML 1,000 ML IV ONE (09:07)
[2018-05-10] MEDS: NORVASC PO SCH (09:13)
[2018-05-10] MEDS: SYMMETREL PO SCH (09:14)
[2018-05-10] MEDS: ROCEPHIN/NS 1 GM/50 ML 1 GM/50 ML BAG IV SCH (09:43)
[2018-05-10] MEDS: EXELON TD SCH (09:51)
--- NOTE | 2018-05-10 10:29 | History and Physical Report ---
CHIEF COMPLAINT: Pain in the left upper extremity and fall. HISTORY OF PRESENTING ILLNESS: The patient is a 77-year-old female who fell at the care home with pain in the left upper extremity and difficulty moving the left upper limb. There is no history of loss of consciousness. There is no history of chest pain or shortness of breath prior to the fall. PAST MEDICAL HISTORY: Pertinent for hypertension, diabetes mellitus, schizophrenia, dementia, legal blindness. PAST SURGICAL HISTORY: Unremarkable. FAMILY HISTORY: Noncontributory. SOCIAL HISTORY: The patient stays at a care home. Does not smoke cigarette, does not drink alcohol or use illicit drugs. MEDICATIONS: The patient is on amantadine 100 mg by mouth daily, anastrozole 1 mg by mouth daily. Also, the patient is on Exelon patch 4.6 mg/24 hours and the patient is on albuterol nebulizer 2.5 mg every 4 hours. The patient is also on Tylenol 650 mg by mouth every 4 hours for fever or headache and on insulin aspart a.c. and at bedtime. The patient is on amlodipine 5 mg by mouth daily and Percocet 5/325 mg 1 by mouth every 6 hours. ALLERGIES: There are no known drug allergies. REVIEW OF SYSTEMS: CONSTITUTIONAL: There is no fever, no chills, no diaphoresis. HEENT: There is no headache or sore throat. CARDIOVASCULAR SYSTEM: There is no chest pain or orthopnea. RESPIRATORY SYSTEM: There is no shortness of breath or cough. GASTROINTESTINAL SYSTEM: There is no nausea, no vomiting. No abdominal pain, diarrhea, or constipation. NEUROLOGICAL SYSTEM: Chronic change in mental status is noted. MUSCULOSKELETAL SYSTEM: Pain in the left upper extremity noted. DERMATOLOGICAL SYSTEM: There is no skin rash or itching. GENITOURINARY SYSTEM: There is no dysuria, hematuria, or flank pain. Rest of system review is normal. PHYSICAL EXAMINATION: GENERAL: At the time of exam, the patient was found to be alert, oriented x 3 and not in acute distress. VITAL SIGNS: At the initial time of presentation showed temperature of 97.7 degrees Fahrenheit, pulse of 105, respirations 18, blood pressure 147/69, O2 sat of 97% on room air. HEENT: Showed pupils to be equal, round, reactive to light and accommodating. Extraocular muscles intact. Oral mucosa looked dry. NECK: Supple with no JVD or carotid bruits. CARDIOVASCULAR SYSTEM: Showed normal first and second heart sounds with no gallops or murmurs. RESPIRATORY SYSTEM: Showed good air entry on both sides of the lungs with no abnormal breath sounds. GASTROINTESTINAL SYSTEM: Showed abdomen to be full, soft, nontender with no organomegaly or rigidity. NEUROLOGICAL: Showed no focal deficit. MUSCULOSKELETAL SYSTEM: Showed tenderness in the left upper extremity in the hand with limited range of motion, but the neurovascular function is intact. DERMATOLOGICAL SYSTEM: Showed no skin rash. GENITOURINARY SYSTEM: Showed no costovertebral angle tenderness. PERTINENT LABORATORY AND IMAGING STUDIES: The patient has CT of the head without contrast done that shows no acute intracranial hemorrhage. The patient also had a cervical spine CT done that shows osseous metastatic disease, was at C6, T1, and T2, but smaller lytic lesions are present within the remainder of the visualized portions of the spine as well as within the right posterior parietal bone of the bony calvarium in the sternum. No fracture is seen in the cervical spine. The patient had x-ray of the humerus done that showed acute displaced midhumeral fracture and the patient's chest x-ray shows ____ appears ectatic with no acute pulmonary findings. The patient had x-ray of pelvic bone done with no fracture seen, but lytic bony metastases are found. LABORATORY RESULTS: The patient had CBC done, which came back unremarkable except for elevated segmented neutrophil count of 80.6% in the CBC differential. The patient's potassium level is low with a value of 3.2 and glucose level is high with a value of 234. Liver transaminases show slight increase in the AST of 41. The patient's urinalysis shows urine with large leukocyte esterase and high urine WBC of 155 with 1+ bacteria. DIAGNOSES: 1. Fracture of the left humeral bone. 2. Urinary tract infection. 3. Metastasis to the bone. PLAN OF ACTION: 1. The patient will be admitted to medical surgical floor. 2. The patient will continue orthopedic surgical consult with Dr. Otto as requested by the Emergency Room physician. 3. The patient will have Oncology consult with Dr. Armstrong for metastases to the bone. 4. The patient will remain n.p.o. until seen by the orthopedic surgeon. 5. The patient will be on Tylenol 650 mg rectally every 4 hours for fever and headache and will be on IV Levaquin 750 mg daily for treatment of urinary tract infection. 6. The patient will be on IV morphine 2 mg every 4 hours for pain and will be on IV Zofran 4 mg every 8 hours for nausea and vomiting. 7. The patient will be on home medications as shown in the medication reconciliation section and will be on IV normal saline at 75 mL an hour. JOB# [id number] OCN/NTS
--- NOTE | 2018-05-10 11:47 | Progress Note ---
Assessment and Plan Assessment and plan: This is a 77-year-old female with a history of dementia, diabetes mellitus, hypertension, schiozphrenia, breast cancer with metastatic bony lesions who has a left midshaft humerus fracture with displacement and overlapping of the bone after falling onto her left side. with resulting left mid humeral fracture. she is currently a pen[facility]iary resident and has in the past refused treatment for her malignancy. she also had odynaophagia during the last admission and family refused PEG placement at the time. she was on Prolxin injection in the past, monthly. During her last admission she had a right humerus fracture following a fall also CT CERVICAL SPINE: Osseous metastatic disease, worst at C6, T1 and T2 but smaller lytic lesions are present within the remainder of the visualized portion of the spine as well as within the right posterior parietal bone of the bony calvarium in the sternum No fracture is seen in the cervical spine Pelvic Xray: IMPRESSION: No fracture is seen in the pelvis or hips Suspected lytic bony metastases XR Humerus: Acute displaced mid humeral fracture -Acute metabolic encephalopathy, POA, multifactorial ETIOLOGY, INCLUDING UTI, PAIN from fracture, SOFT WRIST RESTRINTS EXCEPT FRACTURED ARM -Acute displaced mid humeral fracture: Ortho consulted. Pain control -Pathological Ribs, humerus fractures, and other sites due to metastatic breast cancer, poa -Breast cancer with metastatic disease; CONSULT DR Armstrong, oncologist -Acute Cystitis: Continue abx, urine culture -Advance Dementia: -Schizophrenia: Continue current treatment -OSTEOPOROSIS BY DIAGNOSIS: VITAMIN D AND CALCIUM -Mild malnutrition: will need 1:1 feeding -DVT prophylaxis reviewed -Fall precautions. History Interval history: Patient Seen and examined this morning and remains confused. Per the nursing staff the patient has been pulling out lines. She complains of pain in her toes. Hospitalist Physical - Physical exam Narrative exam: Narrative exam: Gen: chronically disable, awake and confused, generalized tenderness HEENT: NCAT, EOMI, legally blind bilateral Neck: supple, no adenopathy, no thyromegaly, no JVD CVS/Heart: RRR, normal S1S2, pulses present bilaterally Chest/Lungs: CTA B, Symmetrical chest expansion, good air entry bilaterally GI/Abdomen: soft, NTND, good bowel sounds, no guarding or rebound /Bladder: no suprapubic tenderness, no CVA or paraspinal tenderness Extermity/Skin: no c/c/e, no obvious rash MSK: sROM x 4 except left upper ext Neuro: CN 2-12 grossly intact, doesnt follow commands Psych: calm - Constitutional Vitals: Temp Pulse Resp BP Pulse Ox 98.8 F 116 H 18 159/112 94 05/10/18 08:14 05/10/18 09:13 05/10/18 08:14 05/10/18 09:13 05/10/18 08:14 Results - Labs CBC & Chem 7: 05/09/18 17:55 05/09/18 19:16 Labs: Laboratory Last Values WBC 7.2 K/mm3 (4.5-11.0) 05/09/18 17:55 RBC 4.83 M/mm3 (3.65-5.03) 05/09/18 17:55 Hgb 13.5 gm/dl (10.1-14.3) 05/09/18 17:55 Hct 39.4 % (30.3-42.9) 05/09/18 17:55 MCV 82 fl (79-97) 05/09/18 17:55 MCH 28 pg (28-32) 05/09/18 17:55 MCHC 34 % (30-34) 05/09/18 17:55 RDW 15.0 % (13.2-15.2) 05/09/18 17:55 Plt Count 290 K/mm3 (140-440) 05/09/18 17:55 Lymph % (Auto) 12.3 % (13.4-35.0) L 05/09/18 17:55 [place] % (Auto) 5.9 % (0.0-7.3) 05/09/18 17:55 Eos % (Auto) 0.1 % (0.0-4.3) 05/09/18 17:55 Baso % (Auto) 1.1 % (0.0-1.8) 05/09/18 17:55 Lymph # 0.9 K/mm3 (1.2-5.4) L 05/09/18 17:55 Garden # 0.4 K/mm3 (0.0-0.8) 05/09/18 17:55 Eos # 0.0 K/mm3 (0.0-0.4) 05/09/18 17:55 Baso # 0.1 K/mm3 (0.0-0.1) 05/09/18 17:55 Seg Neutrophils % 80.6 % (40.0-70.0) H 05/09/18 17:55 Seg Neutrophils # 5.8 K/mm3 (1.8-7.7) 05/09/18 17:55 Sodium 139 mmol/L (137-145) 05/09/18 19:16 Potassium 3.2 mmol/L (3.6-5.0) L 05/09/18 19:16 Chloride 97.6 mmol/L (98-107) L 05/09/18 19:16 Carbon Dioxide 28 mmol/L (22-30) 05/09/18 19:16 Anion Gap 17 mmol/L 05/09/18 19:16 BUN 8 mg/dL (7-17) 05/09/18 19:16 Creatinine 0.4 mg/dL (0.7-1.2) L 05/09/18 19:16 Estimated GFR > 60 ml/min 05/09/18 19:16 BUN/Creatinine Ratio 20 % 05/09/18 19:16 Glucose 234 mg/dL (65-100) H 05/09/18 19:16 POC Glucose 166 (70-105) H 05/10/18 06:02 Calcium 9.4 mg/dL (8.4-10.2) 05/09/18 19:16 Total Bilirubin 0.50 mg/dL (0.1-1.2) 05/09/18 19:16 AST 41 units/L (5-40) H 05/09/18 19:16 ALT 22 units/L (7-56) 05/09/18 19:16 Alkaline Phosphatase 164 units/L (35-129) H 05/09/18 19:16 Total Protein 7.4 g/dL (6.3-8.2) 05/09/18 19:16 Albumin 3.4 g/dL (3.9-5) L 05/09/18 19:16 Albumin/Globulin Ratio 0.9 % 05/09/18 19:16 Urine Color [place] (Yellow) 05/09/18 17:42 Urine Turbidity Cloudy (Clear) 05/09/18 17:42 Urine pH 5.0 (5.0-7.0) 05/09/18 17:42 Ur Specific [place] 1.024 (1.003-1.030) 05/09/18 17:42 Urine Protein 30 mg/dl mg/dL (Negative) 05/09/18 17:42 Urine Glucose (UA) >=500 mg/dL (Negative) 05/09/18 17:42 Urine Ketones Neg mg/dL (Negative) 05/09/18 17:42 Urine Blood Neg (Negative) 05/09/18 17:42 Urine Nitrite Neg (Negative) 05/09/18 17:42 Urine Bilirubin Neg (Negative) 05/09/18 17:42 Urine Urobilinogen 4.0 mg/dL (<2.0) 05/09/18 17:42 Ur Leukocyte Esterase Lg (Negative) 05/09/18 17:42 Urine WBC (Auto) 155.0 /HPF (0.0-6.0) H 05/09/18 17:42 Urine RBC (Auto) 3.0 /HPF (0.0-6.0) 05/09/18 17:42 U Epithel Cells (Auto) 1.0 /HPF (0-13.0) 05/09/18 17:42 Urine Bacteria (Auto) 1+ /HPF (Negative) 05/09/18 17:42 Urine WBC Clumps 3+ /HPF 05/09/18 17:42 Urine Mucus 1+ /HPF 05/09/18 17:42 Urine Yeast (Budding) Few /HPF 05/09/18 17:42 - Imaging and Cardiology Imaging and Cardiology: left humrus fracture cervical spine with diffuse metastatic disease and osteolytic changes.
[2018-05-11] MEDS: HumuLIN R SUB-Q SCH ×4 (00:30→16:58)
[2018-05-11] MEDS: NACL 0.9% 1000 ML 1,000 ML IV SCH (01:11)
[2018-05-11] MEDS: MORPHINE IV PRN ×3 (03:45→20:32)
[2018-05-11 07:39] LABS: BUN/Creatinine Ratio 17; Blood Urea Nitrogen 5 mg/dL (7-17); Calcium 8.4 mg/dL (8.4-10.2); Hemolysis Index 17
--- NOTE | 2018-05-11 09:14 | Anesthesia Day of Surgery ---
Anesthesia Day of Surgery - Day of Surgery Patient Examined: Yes Patient H&P Reviewed: Yes Patient is NPO: Yes
[2018-05-11] MEDS ORDERED: DIPRIVAN 10 MG/ML IV ONE (09:17)
[2018-05-11] MEDS ORDERED: ZEMURON IV ONE (09:17)
[2018-05-11] MEDS ORDERED: SUBLIMAZE ONE ×2 (09:17→13:16)
[2018-05-11] MEDS ORDERED: DECADRON ONE ×2 (09:17→09:22)
[2018-05-11] MEDS ORDERED: ZOFRAN ONE ×2 (09:17→09:22)
--- NOTE | 2018-05-11 09:19 | Anesthesia Consultation ---
Anesthesia Consult and Med Hx Date of service: 05/11/18 - Airway Anesthetic Teeth Evaluation: Poor ROM Head & Neck: Inadequate (Unable to assess; pt uncooperative; has spots on neck CT) Mental/Hyoid Distance: Adequate Mallampati Class: Class III Intubation Access Assessment: Probably Good - Pre-Operative Health Status ASA Pre-Surgery Classification: ASA3 Proposed Anesthetic Plan: General - Pulmonary Hx Smoking: No Hx Asthma: No COPD: No Hx Pneumonia: No Hx Sleep Apnea: No - Cardiovascular System Hx Hypertension: Yes (Echo done last year) Hx Coronary Artery Disease: No Hx Heart Attack/AMI: No Hx Angina: No Hx Internal Defibrillator: No Hx Valvular Heart Disease: No Hx Heart Murmur: No Hx Peripheral Vascular Disease: No - Central Nervous System Hx Seizures: No CVA: No (Blindness) Hx Psychiatric Problems: Yes (Dementia, schizophrenia) - Gastrointestinal Hx Ulcer: No - Endocrine Hx Renal Disease: No Hx End Stage Renal Disease: No Hx Cirrhosis: No Hx Hypothyroidism: No Hx Hyperthyroidism: No - Hematic Hx Anemia: No Hx Sickle Cell Disease: No - Other Systems Hx Alcohol Use: No Hx Substance Use: No Hx Cancer: Yes (Breast cancer) - Additional Comments Anesthesia Medical History Comments: Pt is a NHR and fell. No LOC or other injuries noted
[2018-05-11] MEDS: NORVASC PO SCH (09:32)
[2018-05-11] MEDS: K-DUR PO ONE ×2 (09:34→09:44)
[2018-05-11] MEDS: SYMMETREL PO SCH (09:44)
[2018-05-11] MEDS ORDERED: ZOFRAN IV PRN (11:57)
[2018-05-11] MEDS ORDERED: SUBLIMAZE IV PRN (11:57)
[2018-05-11] MEDS ORDERED: MARCAINE 0.5% INFILTRATI ONE ×2 (11:58→11:59)
[2018-05-11] MEDS ORDERED: NEO SYNEPHRINE/NS Syringe(OR USE) IV ONE ×2 (12:00)
[2018-05-11] MEDS ORDERED: NEO SYNEPHRINE ONE (12:02)
[2018-05-11] MEDS ORDERED: ROBINUL ONE (12:39)
[2018-05-11] MEDS ORDERED: BLOXIVERZ ONE (12:39)
--- NOTE | 2018-05-11 12:59 | Procedure Note ---
Date of procedure: 05/11/18 Pre-op diagnosis: displaced pathologic fracture left humerus Post-op diagnosis: same Procedure: Closed reduction and insertion of intramedullary nail left humerus Procedure The patient was brought to the OR and was placed on the OR table in the supine position following induction and intubation, the patient's was placed in a beachchair position. The left upper extremity was then prepped and draped in the usual sterile manner. A timeout procedure was done to identify the patient and the correct operative site. An incision was made over the distal acromion this was carried down to skin and subcutaneous the deltoid muscle and fascia was incised as well as the rotator cuff tendon next C-arm was brought in the location of our entry portal was ascertained next a awl was used to enter the proximal medullary canal. A ball-tipped guidewire was then inserted antegrade down the proximal humerus to the fracture site using gentle manipulation and traction the distal medullary canal was entered next the of the IM sony was chosen she was reamed to a 10 mm diameter followed by insertion of the 9 x 240 IM nail. 2 proximal locking screws were placed into the humeral head and neck area this was followed by placement of the distal locking screw again under C- arm visualization AP and lateral views were obtained showing good reduction of the fracture and placement of our hardware next the wound was copiously irrigated and was closed in a standard routine fashion. Dressings were applied the patient tolerated procedure there were no complications Anesthesia: GRACIEA Surgeon: JAMEEL FLORENCE Estimated blood loss: 50-100ml Pathology: none Condition: stable Disposition: PACU
--- NOTE | 2018-05-11 13:03 | Consultation ---
History of Present Illness - [facility] Consult date: 05/11/18 Consult reason: fracture History of present illness: 77-year-old female with a history of dementia, diabetes mellitus, hypertension, schiozphrenia, breast cancer with metastatic bony lesions who has a left midshaf t humerus fracture with displacement and overlapping of the bone after falling onto her left side. She has been seen by me on past admission for a right humerus fracture surgery was recommended at that time however patient's family members refused she was subsequently [facility] to a prison facility. Presents now with acute displaced fracture of the midshaft left humerus Medications and Allergies Allergies Allergy/AdvReac Type Severity Reaction Status Date / Time No Known Allergies Allergy Unverified 08/05/17 21:36 Home Medications Medication Instructions Recorded Confirmed Last Taken Type Amantadine HCl [Amantadine] 100 mg PO DAILY 08/10/17 05/10/18 Unknown History Anastrozole (Nf) [Arimidex (Nf)] 1 mg PO DAILY 08/10/17 05/10/18 Unknown History Rivastigmine [Exelon Patch 4.6 mg TP Q24HR 08/10/17 05/10/18 Unknown History 4.6mg/24hr] ALBUTEROL NEB's [Proventil 0.083% 2.5 mg IH Q4HRT PRN #30 nebu 04/03/18 05/10/18 Unknown Rx NEBS] Acetaminophen [Acetaminophen TAB] 650 mg PO Q4H PRN #15 tablet 04/03/18 05/10/18 Unknown Rx Insulin Aspart [Novolog] 1 dose SQ ACHS PRN #100 units 04/03/18 05/10/18 Unknown Rx amLODIPine [Norvasc] 5 mg PO QDAY #30 tablet 04/03/18 05/10/18 Unknown Rx oxyCODONE /ACETAMINOPHEN [Percocet 1 tab PO Q6H PRN #15 tablet 04/03/18 05/10/18 Unknown Rx 5/325 mg] Active Meds: Active Medications Acetaminophen (Tylenol) 650 mg UT Q4H PRN PRN Reason: Pain, Mild (1-3) Albuterol (Proventil) 2.5 mg IH Q4HRT PRN PRN Reason: Shortness Of Breath Amantadine HCl (Symmetrel) 100 mg PO DAILY [facility] Last Admin: 05/11/18 09:44 Dose: Not Given Documented by: Amlodipine Besylate (Norvasc) 5 mg PO QDAY [facility] Last Admin: 05/11/18 09:32 Dose: 5 mg Documented by: Dextrose (D50w (25gm) Syringe) 50 ml IV PRN PRN PRN Reason: Hypoglycemia Fentanyl (Sublimaze) 50 mcg IV Q5MIN PRN PRN Reason: Pain , Severe (7-10) Ceftriaxone Sodium (Rocephin/Ns 1 Gm/50 Ml) 1 gm in 50 mls @ 100 mls/hr IV Q24HR NIGEL; Protocol Last Admin: 05/10/18 09:43 Dose: 100 mls/hr Documented by: Sodium Chloride (Nacl 0.9% 1000 Ml) 1,000 mls @ 75 mls/hr IV DIRECT NIGEL Last Admin: 05/11/18 01:11 Dose: 75 mls/hr Documented by: Insulin Human Regular (Humulin R) 0 units SUB-Q Q4H NIGEL; Protocol Last Admin: 05/11/18 06:49 Dose: Not Given Documented by: Morphine Sulfate (Morphine) 2 mg IV Q4H PRN PRN Reason: Pain, Moderate (4-6) Last Admin: 05/11/18 03:45 Dose: 2 mg Documented by: Ondansetron HCl (Zofran) 4 mg IV Q8H PRN PRN Reason: Nausea And Vomiting Ondansetron HCl (Zofran) 4 mg IV ONCE PRN PRN Reason: Nausea And Vomiting Rivastigmine (Exelon) 4.6 mg TD Q24HR NIGEL Last Admin: 05/10/18 09:51 Dose: 4.6 mg Documented by: Physical Examination - Physical exam Narrative exam: Significant musculoskeletal findings reveal a shortened and deformed left arm skin is intact to range of motion at the shoulder and elbow decreased secondary to pain distal neurovascular status is intact Plain x-rays of the left humerus was reviewed by me and show a displaced midshaft left humerus fracture with significant overriding fracture fragments Assessment and Plan Displaced pathologic fracture left humerus Recommendations recommend closed reduction and insertion of intramedullary nail left humerus
--- NOTE | 2018-05-11 13:06 | Progress Note ---
Assessment and Plan Assessment and plan: This is a 77-year-old female with a history of dementia, diabetes mellitus, hypertension, schiozphrenia, breast cancer with metastatic bony lesions who has a left midshaft humerus fracture with displacement and overlapping of the bone after falling onto her left side. with resulting left mid humeral fracture. she is currently a [facility] resident and has in the past refused treatment for her malignancy. she also had odynaophagia during the last admission and family refused PEG placement at the time. she was on Prolxin injection in the past, monthly. During her last admission she had a right humerus fracture following a fall also CT CERVICAL SPINE: Osseous metastatic disease, worst at C6, T1 and T2 but smaller lytic lesions are present within the remainder of the visualized portion of the spine as well as within the right posterior parietal bone of the bony calvarium in the sternum No fracture is seen in the cervical spine Pelvic Xray: IMPRESSION: No fracture is seen in the pelvis or hips Suspected lytic bony metastases XR Humerus: Acute displaced mid humeral fracture -Acute metabolic encephalopathy, POA, multifactorial ETIOLOGY, INCLUDING UTI, PAIN from fracture, may discontinue restriants today, family at bedside. patient for surgery today -Acute displaced mid humeral fracture: Ortho consulted. Pain control. for surgery today -Pathological Ribs, humerus fractures, and other sites due to metastatic breast cancer, poa -Breast cancer with metastatic disease; CONSULT DR Armstrong, oncologist -Acute Cystitis: Continue abx, urine culture -Advance Dementia: -Schizophrenia: Continue current treatment -OSTEOPOROSIS BY DIAGNOSIS: VITAMIN D AND CALCIUM -Mild malnutrition: will need 1:1 feeding -DVT prophylaxis reviewed -Fall precautions. History Interval history: Patient Seen and examined this morning for surgery today. Hospitalist Physical - Physical exam Narrative exam: Narrative exam: Gen: chronically disable, awake and confused, generalized tenderness HEENT: NCAT, EOMI, legally blind bilateral Neck: supple, no adenopathy, no thyromegaly, no JVD CVS/Heart: RRR, normal S1S2, pulses present bilaterally Chest/Lungs: CTA B, Symmetrical chest expansion, good air entry bilaterally GI/Abdomen: soft, NTND, good bowel sounds, no guarding or rebound /Bladder: no suprapubic tenderness, no CVA or paraspinal tenderness Extermity/Skin: no c/c/e, no obvious rash MSK: sROM x 4 except left upper ext Neuro: CN 2-12 grossly intact, follows Psych: calm - Constitutional Vitals: Temp Pulse Resp BP Pulse Ox 98.9 F 107 H 20 143/78 96 05/11/18 05:31 05/11/18 09:32 05/11/18 05:31 05/11/18 09:32 05/11/18 05:31 Results - Labs CBC & Chem 7: 05/09/18 17:55 05/11/18 07:03 Labs: Laboratory Last Values WBC 7.2 K/mm3 (4.5-11.0) 05/09/18 17:55 RBC 4.83 M/mm3 (3.65-5.03) 05/09/18 17:55 Hgb 13.5 gm/dl (10.1-14.3) 05/09/18 17:55 Hct 39.4 % (30.3-42.9) 05/09/18 17:55 MCV 82 fl (79-97) 05/09/18 17:55 MCH 28 pg (28-32) 05/09/18 17:55 MCHC 34 % (30-34) 05/09/18 17:55 RDW 15.0 % (13.2-15.2) 05/09/18 17:55 Plt Count 290 K/mm3 (140-440) 05/09/18 17:55 Lymph % (Auto) 12.3 % (13.4-35.0) L 05/09/18 17:55 [place] % (Auto) 5.9 % (0.0-7.3) 05/09/18 17:55 Eos % (Auto) 0.1 % (0.0-4.3) 05/09/18 17:55 Baso % (Auto) 1.1 % (0.0-1.8) 05/09/18 17:55 Lymph # 0.9 K/mm3 (1.2-5.4) L 05/09/18 17:55 [place] # 0.4 K/mm3 (0.0-0.8) 05/09/18 17:55 Eos # 0.0 K/mm3 (0.0-0.4) 05/09/18 17:55 Baso # 0.1 K/mm3 (0.0-0.1) 05/09/18 17:55 Seg Neutrophils % 80.6 % (40.0-70.0) H 05/09/18 17:55 Seg Neutrophils # 5.8 K/mm3 (1.8-7.7) 05/09/18 17:55 Sodium 140 mmol/L (137-145) 05/11/18 07:03 Potassium 3.3 mmol/L (3.6-5.0) L 05/11/18 07:03 Chloride 100.1 mmol/L (98-107) 05/11/18 07:03 Carbon Dioxide 26 mmol/L (22-30) 05/11/18 07:03 Anion Gap 17 mmol/L 05/11/18 07:03 BUN 5 mg/dL (7-17) L 05/11/18 07:03 Creatinine 0.3 mg/dL (0.7-1.2) L 05/11/18 07:03 Estimated GFR > 60 ml/min 05/11/18 07:03 BUN/Creatinine Ratio 17 % 05/11/18 07:03 Glucose 181 mg/dL (65-100) H 05/11/18 07:03 POC Glucose 149 (70-105) H 05/11/18 09:25 Calcium 8.4 mg/dL (8.4-10.2) 05/11/18 07:03 Total Bilirubin 0.50 mg/dL (0.1-1.2) 05/09/18 19:16 AST 41 units/L (5-40) H 05/09/18 19:16 ALT 22 units/L (7-56) 05/09/18 19:16 Alkaline Phosphatase 164 units/L (35-129) H 05/09/18 19:16 Total Protein 7.4 g/dL (6.3-8.2) 05/09/18 19:16 Albumin 3.4 g/dL (3.9-5) L 05/09/18 19:16 Albumin/Globulin Ratio 0.9 % 05/09/18 19:16 Urine Color [place] (Yellow) 05/09/18 17:42 Urine Turbidity Cloudy (Clear) 05/09/18 17:42 Urine pH 5.0 (5.0-7.0) 05/09/18 17:42 Ur Specific [place] 1.024 (1.003-1.030) 05/09/18 17:42 Urine Protein 30 mg/dl mg/dL (Negative) 05/09/18 17:42 Urine Glucose (UA) >=500 mg/dL (Negative) 05/09/18 17:42 Urine Ketones Neg mg/dL (Negative) 05/09/18 17:42 Urine Blood Neg (Negative) 05/09/18 17:42 Urine Nitrite Neg (Negative) 05/09/18 17:42 Urine Bilirubin Neg (Negative) 05/09/18 17:42 Urine Urobilinogen 4.0 mg/dL (<2.0) 05/09/18 17:42 Ur Leukocyte Esterase Lg (Negative) 05/09/18 17:42 Urine WBC (Auto) 155.0 /HPF (0.0-6.0) H 05/09/18 17:42 Urine RBC (Auto) 3.0 /HPF (0.0-6.0) 05/09/18 17:42 U Epithel Cells (Auto) 1.0 /HPF (0-13.0) 05/09/18 17:42 Urine Bacteria (Auto) 1+ /HPF (Negative) 05/09/18 17:42 Urine WBC Clumps 3+ /HPF 05/09/18 17:42 Urine Mucus 1+ /HPF 05/09/18 17:42 Urine Yeast (Budding) Few /HPF 05/09/18 17:42
--- NOTE | 2018-05-11 13:35 | Post Anesthesia Evaluation ---
- Post Anesthesia Evaluation Patient Participated: Yes Airway Patent: Yes Stable Respiratory Function: Yes Nausea/Vomiting: No Temp > 96.8F: Yes Pain Manageable: Yes Adequeate Hydration: Yes Anesthesia Complications: No Block Receding Appropriately: Not Applicable Patient on Ventilator: No
[2018-05-11] MEDS ORDERED: NACL 0.9% 1000 ML 1,000 ML ONE (13:36)
[2018-05-11] MEDS ORDERED: SODIUM CHLORIDE FLUSH SYRINGE 10 ML IV PRN (14:00)
--- NOTE | 2018-05-11 14:09 | Event Note ---
Date: 05/10/18 [id number] - pt seen on 05/10 d/w RN reg the fracture palmidronate
--- NOTE | 2018-05-11 14:20 | Hem/Onc Progress Note ---
Assessment and Plan breast ca bone mets pamidronate ca/vit d 1. Bone fracture of left upper extremity. Likely metastasis related. Orthoped ics team is following. 2. Breast cancer, stage 4. The patient received palliative radiation to the fracture area by Dr. Jaeger, details not clear. 3. The patient was suggested [facility]x at [facility]. I am not sure if that happened. 4. Multiple bone lesions. 5. Diabetes. 6. Dementia. 7. Schizophrenia. 8. bisphosphonate IV for the bone metastasis. 9. I will follow the patient during inpatient stay. tried to call daughter - no response s/p sx for left humerus Dr Martines consult - Patient Problems (1) Breast cancer Current Visit: No Status: Acute Qualifiers: Laterality: unspecified laterality Subjective Date of service: 05/11/18 Principal diagnosis: stage IV breast ca Interval history: s/p ORIF left humerus- d/w RN Objective - Constitutional Vitals: Last Vital Signs Temp 97.5 F L 05/11/18 12:50 Pulse 110 H 05/11/18 13:30 Resp 14 05/11/18 13:30 BP 142/69 05/11/18 13:30 Pulse Ox 100 05/11/18 13:30 Pain Intensity (0-10): 1/10 (left arm) General appearance: no acute distress Performance status: 4-completely disabled - EENT ENT: other (speaks creole) Lymph node exam: negative cervical - Neck Neck: supple - Respiratory Respiratory effort: Positive: normal Respiratory: bilateral: CTA (anteriorly) - Cardiovascular Heart Sounds: Present: S1 & S2 Extremity abnormal: edema - Gastrointestinal General gastrointestinal: Present: soft, non-tender Rectal Exam: deferred - Genitourinary Female genitourinary: Present: deferred - Integumentary Integumentary: warm - Musculoskeletal Musculoskeletal: other (left arm - s/p sx) - Labs Lab Results: Laboratory Results - last 24 hr 05/10/18 05/11/18 05/11/18 20:12 00:07 05:47 Sodium Potassium Chloride Carbon Dioxide Anion Gap BUN Creatinine Estimated GFR BUN/Creatinine Ratio Glucose POC Glucose 150 H 177 H 174 H Calcium 05/11/18 05/11/18 07:03 09:25 Sodium 140 Potassium 3.3 L Chloride 100.1 Carbon Dioxide 26 Anion Gap 17 BUN 5 L Creatinine 0.3 L Estimated GFR > 60 BUN/Creatinine Ratio 17 Glucose 181 H POC Glucose 149 H Calcium 8.4 Medications & Allergies - Medications Allergies/Adverse Reactions: Allergies No Known Allergies Allergy (Unverified 08/05/17 21:36) Home Medications: Home Medications Medication Instructions Recorded Confirmed Last Taken Type RX: Amantadine HCl [Amantadine] 100 mg PO DAILY 08/10/17 05/10/18 Unknown History RX: Anastrozole (Nf) [Arimidex 1 mg PO DAILY 08/10/17 05/10/18 Unknown History (Nf)] RX: Rivastigmine [Exelon Patch 4.6 mg TP Q24HR 08/10/17 05/10/18 Unknown History 4.6mg/24hr] Insulin Aspart [Novolog] 1 dose SQ ACHS PRN #100 units 04/03/18 05/10/18 Unknown Rx RX: ALBUTEROL NEB's [Proventil 2.5 mg IH Q4HRT PRN #30 nebu 04/03/18 05/10/18 Unknown Rx 0.083% NEBS] RX: Acetaminophen [Acetaminophen 650 mg PO Q4H PRN #15 tablet 04/03/18 05/10/18 Unknown Rx TAB] RX: amLODIPine [Norvasc] 5 mg PO QDAY #30 tablet 04/03/18 05/10/18 Unknown Rx RX: oxyCODONE /ACETAMINOPHEN 1 tab PO Q6H PRN #15 tablet 04/03/18 05/10/18 Unknown Rx [Percocet 5/325 mg] Active Medications: Generic Name Dose Route Start Last Admin Trade Name Freq PRN Reason Stop Dose Admin Acetaminophen 650 mg 05/09/18 22:14 Tylenol IA Q4H PRN Pain, Mild (1-3) Albuterol 2.5 mg 05/09/18 22:48 Proventil IH Q4HRT PRN Shortness Of Breath Amantadine HCl 100 mg 05/10/18 10:00 05/11/18 09:44 Symmetrel PO Not Given DAILY NIGEL Amlodipine Besylate 5 mg 05/10/18 10:00 05/11/18 09:32 Norvasc PO 5 mg QDAY NIGEL Administration Calcium Citrate 1 each 05/11/18 15:00 Citracal D 315mg-250 Units PO BID NIGEL Dextrose 50 ml 05/09/18 22:15 D50w (25gm) Syringe IV PRN PRN Hypoglycemia Enoxaparin Sodium 40 mg 05/12/18 10:00 Lovenox SUB-Q QDAY NIGEL Fentanyl 50 mcg 05/11/18 11:57 05/11/18 13:14 Sublimaze IV 50 mcg Q5MIN PRN Administration Pain , Severe (7-10) Ceftriaxone Sodium 1 gm in 50 mls @ 100 mls/hr 05/10/18 10:00 05/10/18 09:43 Rocephin/Ns 1 Gm/50 Ml IV 100 mls/hr Q24HR NIGEL Administration Protocol Sodium Chloride 1,000 mls @ 75 mls/hr 05/09/18 23:00 05/11/18 01:11 Nacl 0.9% 1000 Ml IV 75 mls/hr DIRECT NIGEL Administration Insulin Human Regular 0 units 05/09/18 23:00 05/11/18 06:49 Humulin R SUB-Q Not Given Q4H NIGEL Protocol Morphine Sulfate 2 mg 05/09/18 22:13 05/11/18 03:45 Morphine IV 2 mg Q4H PRN Administration Pain, Moderate (4-6) Morphine Sulfate 4 mg 05/11/18 13:04 Morphine IV Q4H PRN Pain , Severe (7-10) Ondansetron HCl 4 mg 05/09/18 22:14 Zofran IV Q8H PRN Nausea And Vomiting Ondansetron HCl 4 mg 05/11/18 11:57 Zofran IV ONCE PRN Nausea And Vomiting Rivastigmine 4.6 mg 05/10/18 10:00 05/10/18 09:51 Exelon TD 4.6 mg Q24HR NIGEL Administration Sodium Chloride 10 ml 05/11/18 14:00 Sodium Chloride Flush Syringe 10 Ml IV PRN PRN FLUSH
[2018-05-11] MEDS: KCL 10MEQ/100ML 10 MEQ/100 ML BAG IV SCH (15:18)
[2018-05-11] MEDS: EXELON TD SCH (17:00)
[2018-05-11] MEDS: CITRACAL D 315MG-250 UNITS PO SCH ×2 (17:08→22:22)
--- NOTE | 2018-05-11 20:20 | Consultation ---
ONCOLOGY CONSULTATION Referred by Dr. Spears. REASON FOR CONSULTATION: Stage IV breast cancer. HISTORY OF PRESENT ILLNESS: I saw the patient, a 77-year-old female in the medical floor. The patient was admitted a few months ago with the bone lesion. After that, she underwent radiation by Dr. Jaeger. I had seen her in the clinic and suggested hormonal blockade to be given at alf. The patient was found to have breast cancer in 2012 and was on Arimidex and recently I had asked her to change to Femara or other hormone blockade or Faslodex. The patient fell at the alf and was not able to move left upper limb. There is no history of loss of consciousness. No history of chest pain or shortness of breath. The patient is Creole speaking. At this time, her main complaint includes left arm pain. I spoke to the nurse about the same. PAST MEDICAL HISTORY: Hypertension, diabetes, schizophrenia, dementia and vision issues. PAST SURGICAL HISTORY: Unremarkable. FAMILY HISTORY: Noncontributory. SOCIAL HISTORY: care home. No history of tobacco or alcohol usage. HOME MEDICATIONS: Includes at this time, it looks like anastrozole. ALLERGIES: None. REVIEW OF SYSTEMS: Most information comes from medical record. No fever, no chills, no bleeding, no shortness of breath or cough, no vomiting, no diarrhea. No seizure or syncope. PHYSICAL EXAMINATION: VITAL SIGNS: Temperature 98.8, pulse 100, respirations 18, BP 133/81. No pallor, no icterus. NECK: No neck lymph nodes. HEART: S1, S2. LUNGS: Clear to auscultation anteriorly. ABDOMEN: Soft. EXTREMITIES: Left arm fracture deformity present. No calf tenderness. NEUROLOGIC: Alert, awake. LABORATORY DATA: White cell 7, hemoglobin 13, MCV 82, platelet 290 and potassium 3.2, creatinine 0.4 and bilirubin 0.5. RADIOLOGY: X-ray of the left shoulder shows fracture. The patient had undergone abdomen and pelvis CT in past and bone scan. ASSESSMENT AND PLAN: 1. Bone fracture of left upper extremity. Likely metastasis related. Orthopedics team is pending. 2. Breast cancer, stage 4. The patient received palliative radiation to the fracture area by Dr. Jaeger, details not clear. 3. The patient was suggested Faslodex at alf. I am not sure if that happens. 4. Multiple bone lesions. 5. Diabetes. 6. Dementia. 7. Schizophrenia. 8. We will look into bisphosphonate IV for the bone metastasis. 9. I will follow the patient during inpatient stay. I will speak to the family members. JOB# [id number] NM/NTS
[2018-05-12] MEDS: NACL 0.9% 1000 ML 1,000 ML IV SCH ×2 (00:08→16:07)
[2018-05-12] MEDS: HumuLIN R SUB-Q SCH ×6 (00:30→23:05)
[2018-05-12] MEDS: MORPHINE IV PRN ×4 (00:37→19:46)
[2018-05-12 05:39] LABS: Bacteria,Urine 1+ /HPF (Negative); Bilirubin,Urine NEG (Negative); Blood,Urine SM (Negative); Color,Urine Yellow (Yellow); Mucus,Urine FEW /HPF; Protein,Urine <15 mg/dL mg/dL (Negative)
--- NOTE | 2018-05-12 07:49 | XRay Report ---
LEFT HUMERUS, ONE VIEW History: Left humeral fracture. Findings: AP fluoroscopic view of the left humerus was obtained during surgery. The image demonstrates internal fixation of a left humeral shaft fracture. Please correlate with the procedural report by Dr. Otto as needed.
[2018-05-12] MEDS ORDERED: D50W (25GM) Syringe IV PRN (08:19)
[2018-05-12 08:21] LABS: BUN/Creatinine Ratio 10; Blood Urea Nitrogen 3 mg/dL (7-17); Calcium 7.8 mg/dL (8.4-10.2); Hemolysis Index 6
--- NOTE | 2018-05-12 08:26 | Hem/Onc Progress Note ---
Assessment and Plan breast ca bone mets pamidronate ca/vit d 1. Bone fracture of left upper extremity. Likely metastasis related. Orthoped ics team is following. 2. Breast cancer, stage 4. The patient received palliative radiation to the fracture area by Dr. Jaeger, details not clear. 3. The patient was suggested Faslodex at care home. I am not sure if that happened. 4. Multiple bone lesions. 5. Diabetes. 6. Dementia. 7. Schizophrenia. 8. bisphosphonate IV for the bone metastasis. 9. I will follow the patient during inpatient stay. tried to call daughter - no response s/p sx for left humerus Dr Martines consult - Patient Problems (1) Breast cancer Current Visit: No Status: Acute Qualifiers: Laterality: unspecified laterality Subjective Date of service: 05/12/18 Objective - Constitutional Vitals: Last Vital Signs Temp 101.3 F H 05/12/18 03:32 Pulse 123 H 05/12/18 07:34 Resp 20 05/12/18 07:34 BP 173/91 05/12/18 07:34 Pulse Ox 96 05/12/18 07:40 Pain Intensity (0-10): 1/10 (lef arm) General appearance: no acute distress Performance status: 4-completely disabled - EENT ENT: clear oral mucosa Lymph node exam: negative cervical - Respiratory Respiratory: bilateral: diminished (poor effort) - Cardiovascular Heart Sounds: Present: S1 & S2 Extremity abnormal: edema (left arm) - Gastrointestinal General gastrointestinal: Present: soft, non-tender Rectal Exam: deferred - Genitourinary Female genitourinary: Present: deferred - Integumentary Integumentary: warm - Musculoskeletal Musculoskeletal: other (left arm - s/p surgery) - Neurologic Neurologic: other (awake - speaks creole) - Labs Lab Results: Laboratory Results - last 24 hr 05/11/18 05/11/18 05/11/18 09:25 16:32 21:50 Sodium Potassium Chloride Carbon Dioxide Anion Gap BUN Creatinine Estimated GFR BUN/Creatinine Ratio Glucose POC Glucose 149 H 209 H 233 H Calcium Urine Color Urine Turbidity Urine pH Ur Specific [place] Urine Protein Urine Glucose (UA) Urine Ketones Urine Blood Urine Nitrite Urine Bilirubin Urine Urobilinogen Ur Leukocyte Esterase Urine WBC (Auto) Urine RBC (Auto) U Epithel Cells (Auto) Urine Bacteria (Auto) Urine Mucus 05/12/18 05/12/18 05:14 07:34 Sodium 141 Potassium 3.2 L Chloride 105.2 Carbon Dioxide 28 Anion Gap 11 BUN 3 L Creatinine 0.3 L Estimated GFR > 60 BUN/Creatinine Ratio 10 Glucose 167 H POC Glucose Calcium 7.8 L Urine Color Yellow Urine Turbidity Hazy Urine pH 5.0 Ur Specific [place] 1.008 Urine Protein <15 mg/dl Urine Glucose (UA) Neg Urine Ketones Neg Urine Blood Sm Urine Nitrite Neg Urine Bilirubin Neg Urine Urobilinogen 2.0 Ur Leukocyte Esterase Lg Urine WBC (Auto) 23.0 H Urine RBC (Auto) 7.0 U Epithel Cells (Auto) < 1.0 Urine Bacteria (Auto) 1+ Urine Mucus Few Medications & Allergies - Medications Allergies/Adverse Reactions: Allergies No Known Allergies Allergy (Unverified 08/05/17 21:36) Home Medications: Home Medications Medication Instructions Recorded Confirmed Last Taken Type RX: Amantadine HCl [Amantadine] 100 mg PO DAILY 08/10/17 05/10/18 Unknown History RX: Anastrozole (Nf) [Arimidex 1 mg PO DAILY 08/10/17 05/10/18 Unknown History (Nf)] RX: Rivastigmine [Exelon Patch 4.6 mg TP Q24HR 08/10/17 05/10/18 Unknown History 4.6mg/24hr] Insulin Aspart [Novolog] 1 dose SQ ACHS PRN #100 units 04/03/18 05/10/18 Unknown Rx RX: ALBUTEROL NEB's [Proventil 2.5 mg IH Q4HRT PRN #30 nebu 04/03/18 05/10/18 Unknown Rx 0.083% NEBS] RX: Acetaminophen [Acetaminophen 650 mg PO Q4H PRN #15 tablet 04/03/18 05/10/18 Unknown Rx TAB] RX: amLODIPine [Norvasc] 5 mg PO QDAY #30 tablet 04/03/18 05/10/18 Unknown Rx RX: oxyCODONE /ACETAMINOPHEN 1 tab PO Q6H PRN #15 tablet 04/03/18 05/10/18 Unknown Rx [Percocet 5/325 mg] Active Medications: Generic Name Dose Route Start Last Admin Trade Name Freq PRN Reason Stop Dose Admin Acetaminophen 650 mg 05/09/18 22:14 Tylenol [place] Q4H PRN Pain, Mild (1-3) Albuterol 2.5 mg 05/09/18 22:48 Proventil IH Q4HRT PRN Shortness Of Breath Amantadine HCl 100 mg 05/10/18 10:00 05/11/18 09:44 Symmetrel PO Not Given DAILY NIGEL Amlodipine Besylate 5 mg 05/10/18 10:00 05/11/18 09:32 Norvasc PO 5 mg QDAY NIGEL Administration Calcium Citrate 1 each 05/11/18 15:00 05/11/18 22:22 Citracal D 315mg-250 Units PO 1 each BID NIGEL Administration Dextrose 50 ml 05/09/18 22:15 D50w (25gm) Syringe IV PRN PRN Hypoglycemia Enoxaparin Sodium 40 mg 05/12/18 10:00 Lovenox SUB-Q QDAY [facility] Fentanyl 50 mcg 05/11/18 11:57 05/11/18 13:14 Sublimaze IV 50 mcg Q5MIN PRN Administration Pain , Severe (7-10) Sodium Chloride 1,000 mls @ 75 mls/hr 05/09/18 23:00 05/12/18 00:08 Nacl 0.9% 1000 Ml IV 75 mls/hr DIRECT NIGEL Administration Ceftriaxone Sodium 1 gm in 50 mls @ 100 mls/hr 05/12/18 10:00 Rocephin/Ns 1 Gm/50 Ml IV Q24HR [facility] Protocol Insulin Human Regular 0 units 05/09/18 23:00 05/12/18 00:30 Humulin R SUB-Q 2 units Q4H NIGEL Administration Protocol Morphine Sulfate 2 mg 05/09/18 22:13 05/11/18 03:45 Morphine IV 2 mg Q4H PRN Administration Pain, Moderate (4-6) Morphine Sulfate 4 mg 05/11/18 13:04 05/12/18 00:37 Morphine IV 4 mg Q4H PRN Administration Pain , Severe (7-10) Ondansetron HCl 4 mg 05/09/18 22:14 Zofran IV Q8H PRN Nausea And Vomiting Ondansetron HCl 4 mg 05/11/18 11:57 Zofran IV ONCE PRN Nausea And Vomiting Rivastigmine 4.6 mg 05/10/18 10:00 05/11/18 17:00 Exelon TD 4.6 mg Q24HR NIGEL Administration Sodium Chloride 10 ml 05/11/18 14:00 Sodium Chloride Flush Syringe 10 Ml IV PRN PRN FLUSH
[2018-05-12] MEDS ORDERED: ROCEPHIN/NS 1 GM/50 ML 1 GM/50 ML BAG IV SCH (10:00)
[2018-05-12] MEDS: EXELON TD SCH (10:42)
[2018-05-12] MEDS: NORVASC PO SCH (10:43)
[2018-05-12] MEDS: SYMMETREL PO SCH (10:43)
[2018-05-12] MEDS: CITRACAL D 315MG-250 UNITS PO SCH ×2 (10:43→23:05)
[2018-05-12] MEDS: LOVENOX SUB-Q SCH (10:49)
--- NOTE | 2018-05-12 16:44 | Progress Note ---
Assessment and Plan Assessment and plan: This is a 77-year-old female with a history of dementia, diabetes mellitus, hypertension, schiozphrenia, breast cancer with metastatic bony lesions who has a left midshaft humerus fracture with displacement and overlapping of the bone after falling onto her left side. with resulting left mid humeral fracture. she is currently a [facility] resident and has in the past refused treatment for her malignancy. she also had odynaophagia during the last admission and family refused PEG placement at the time. she was on Prolxin injection in the past, monthly. During her last admission she had a right humerus fracture following a fall also CT CERVICAL SPINE: Osseous metastatic disease, worst at C6, T1 and T2 but smaller lytic lesions are present within the remainder of the visualized portion of the spine as well as within the right posterior parietal bone of the bony calvarium in the sternum No fracture is seen in the cervical spine Pelvic Xray: IMPRESSION: No fracture is seen in the pelvis or hips Suspected lytic bony metastases XR Humerus: Acute displaced mid humeral fracture -Acute metabolic encephalopathy, POA, multifactorial ETIOLOGY, INCLUDING UTI, PAIN from fracture, May discontinue restraints today, family at bedside. -Acute displaced pathological mid humeral fracture: Ortho consulted. Pain con trol.S/P closed reduction and insertion of intramedullary nail left humerus -Pathological Ribs, humerus fractures, and other sites due to metastatic breast cancer, poa -Breast cancer with metastatic disease; CONSULT DR Armstrong, oncologist -Acute Cystitis: Continue abx, urine culture -Advance Dementia: -Schizophrenia: Continue current treatment -OSTEOPOROSIS BY DIAGNOSIS: VITAMIN D AND CALCIUM -Mild malnutrition: will need 1:1 feeding, DIETICAN CONSULT -DVT prophylaxis reviewed -Fall precautions. History Interval history: Patient Seen and examined this morning, Did well post surgical, remains with intermittent confusion but has now been able to be off the restraints. Hospitalist Physical - Physical exam Narrative exam: Narrative exam: Gen: chronically disable, awake, generalized tenderness HEENT: NCAT, EOMI, legally blind bilateral Neck: supple, no adenopathy, no thyromegaly, no JVD CVS/Heart: RRR, normal S1S2, pulses present bilaterally Chest/Lungs: CTA B, Symmetrical chest expansion, good air entry bilaterally GI/Abdomen: soft, NTND, good bowel sounds, no guarding or rebound /Bladder: no suprapubic tenderness, no CVA or paraspinal tenderness Extermity/Skin: no c/c/e, no obvious rash MSK: sROM x 4 except left upper ext Neuro: CN 2-12 grossly intact, follows Psych: calm - Constitutional Vitals: Temp Pulse Resp BP Pulse Ox 98.6 F 103 H 18 120/59 92 05/12/18 15:36 05/12/18 15:36 05/12/18 15:37 05/12/18 15:37 05/12/18 11:12 Results - Labs CBC & Chem 7: 05/09/18 17:55 05/12/18 07:34 Labs: Laboratory Last Values WBC 7.2 K/mm3 (4.5-11.0) 05/09/18 17:55 RBC 4.83 M/mm3 (3.65-5.03) 05/09/18 17:55 Hgb 13.5 gm/dl (10.1-14.3) 05/09/18 17:55 Hct 39.4 % (30.3-42.9) 05/09/18 17:55 MCV 82 fl (79-97) 05/09/18 17:55 MCH 28 pg (28-32) 05/09/18 17:55 MCHC 34 % (30-34) 05/09/18 17:55 RDW 15.0 % (13.2-15.2) 05/09/18 17:55 Plt Count 290 K/mm3 (140-440) 05/09/18 17:55 Lymph % (Auto) 12.3 % (13.4-35.0) L 05/09/18 17:55 [place] % (Auto) 5.9 % (0.0-7.3) 05/09/18 17:55 Eos % (Auto) 0.1 % (0.0-4.3) 05/09/18 17:55 Baso % (Auto) 1.1 % (0.0-1.8) 05/09/18 17:55 Lymph # 0.9 K/mm3 (1.2-5.4) L 05/09/18 17:55 [place] # 0.4 K/mm3 (0.0-0.8) 05/09/18 17:55 Eos # 0.0 K/mm3 (0.0-0.4) 05/09/18 17:55 Baso # 0.1 K/mm3 (0.0-0.1) 05/09/18 17:55 Seg Neutrophils % 80.6 % (40.0-70.0) H 05/09/18 17:55 Seg Neutrophils # 5.8 K/mm3 (1.8-7.7) 05/09/18 17:55 Sodium 141 mmol/L (137-145) 05/12/18 07:34 Potassium 3.2 mmol/L (3.6-5.0) L 05/12/18 07:34 Chloride 105.2 mmol/L (98-107) 05/12/18 07:34 Carbon Dioxide 28 mmol/L (22-30) 05/12/18 07:34 Anion Gap 11 mmol/L 05/12/18 07:34 BUN 3 mg/dL (7-17) L 05/12/18 07:34 Creatinine 0.3 mg/dL (0.7-1.2) L 05/12/18 07:34 Estimated GFR > 60 ml/min 05/12/18 07:34 BUN/Creatinine Ratio 10 % 05/12/18 07:34 Glucose 167 mg/dL (65-100) H 05/12/18 07:34 POC Glucose 233 (70-105) H 05/11/18 21:50 Calcium 7.8 mg/dL (8.4-10.2) L 05/12/18 07:34 Total Bilirubin 0.50 mg/dL (0.1-1.2) 05/09/18 19:16 AST 41 units/L (5-40) H 05/09/18 19:16 ALT 22 units/L (7-56) 05/09/18 19:16 Alkaline Phosphatase 164 units/L (35-129) H 05/09/18 19:16 Total Protein 7.4 g/dL (6.3-8.2) 05/09/18 19:16 Albumin 3.4 g/dL (3.9-5) L 05/09/18 19:16 Albumin/Globulin Ratio 0.9 % 05/09/18 19:16 Urine Color Yellow (Yellow) 05/12/18 05:14 Urine Turbidity Hazy (Clear) 05/12/18 05:14 Urine pH 5.0 (5.0-7.0) 05/12/18 05:14 Ur Specific [place] 1.008 (1.003-1.030) 05/12/18 05:14 Urine Protein <15 mg/dl mg/dL (Negative) 05/12/18 05:14 Urine Glucose (UA) Neg mg/dL (Negative) 05/12/18 05:14 Urine Ketones Neg mg/dL (Negative) 05/12/18 05:14 Urine Blood Sm (Negative) 05/12/18 05:14 Urine Nitrite Neg (Negative) 05/12/18 05:14 Urine Bilirubin Neg (Negative) 05/12/18 05:14 Urine Urobilinogen 2.0 mg/dL (<2.0) 05/12/18 05:14 Ur Leukocyte Esterase Lg (Negative) 05/12/18 05:14 Urine WBC (Auto) 23.0 /HPF (0.0-6.0) H 05/12/18 05:14 Urine RBC (Auto) 7.0 /HPF (0.0-6.0) 05/12/18 05:14 U Epithel Cells (Auto) < 1.0 /HPF (0-13.0) 05/12/18 05:14 Urine Bacteria (Auto) 1+ /HPF (Negative) 05/12/18 05:14 Urine WBC Clumps 3+ /HPF 05/09/18 17:42 Urine Mucus Few /HPF 05/12/18 05:14 Urine Yeast (Budding) Few /HPF 05/09/18 17:42
--- NOTE | 2018-05-12 18:10 | Progress Note ---
Assessment and Plan Status post closed reduction and insertion of intramedullary nail left humerus doing well at this point Patient is stable from an orthopedic standpoint may discharge back to intermediate facility at any time with follow-up in my office in 4 weeks Subjective Date of service: 05/12/18 Principal diagnosis: stage IV breast ca Interval history: The patient lying in bed still somewhat confused daughters present in the room states her mom is feeling better. Objective Vital signs: Vital Signs - 12hr 05/12/18 05/12/18 05/12/18 07:34 07:40 10:43 Temperature Pulse Rate 123 H 123 H Respiratory 18 Rate Blood Pressure 173/91 173/91 Blood Pressure [Right] O2 Sat by Pulse 96 96 Oximetry 05/12/18 05/12/18 05/12/18 11:12 12:20 15:36 Temperature 101.2 F H 97.5 F L 98.6 F Pulse Rate 117 H 103 H Respiratory 19 18 Rate Blood Pressure 147/82 Blood Pressure 120/59 [Right] O2 Sat by Pulse 92 Oximetry 05/12/18 15:37 Temperature Pulse Rate Respiratory 18 Rate Blood Pressure 120/59 Blood Pressure [Right] O2 Sat by Pulse Oximetry Narrative Exam: Left shoulder. Dressings intact mild to moderate swelling distal neurovascular status intact - Labs CBC & BMP: 05/09/18 17:55 05/12/18 07:34 Labs: Abnormal lab results 05/11/18 05/12/18 05/12/18 Range/Units 21:50 05:14 07:34 Potassium 3.2 L (3.6-5.0) mmol/L BUN 3 L (7-17) mg/dL Creatinine 0.3 L (0.7-1.2) mg/dL Glucose 167 H (65-100) mg/dL POC Glucose 233 H (70-105) Calcium 7.8 L (8.4-10.2) mg/dL Urine WBC (Auto) 23.0 H (0.0-6.0) /HPF
[2018-05-12] MEDS: KCL 10MEQ/100ML 10 MEQ/100 ML BAG IV SCH (19:51)
[2018-05-12] MEDS: ROCEPHIN/NS 1 GM/50 ML 1 GM/50 ML BAG IV SCH (19:53)
[2018-05-13] MEDS: MORPHINE IV PRN ×4 (01:20→22:48)
[2018-05-13 05:14] LABS: BUN/Creatinine Ratio 10; Blood Urea Nitrogen 3 mg/dL (7-17); Calcium 7.8 mg/dL (8.4-10.2); Hemolysis Index 5
[2018-05-13] MEDS: NACL 0.9% 1000 ML 1,000 ML IV SCH ×2 (05:45→22:01)
[2018-05-13] MEDS: HumuLIN R SUB-Q SCH ×4 (08:16→21:40)
--- NOTE | 2018-05-13 08:39 | Hem/Onc Progress Note ---
Assessment and Plan breast ca bone mets pamidronate ca/vit d 1. Bone fracture of left upper extremity. Likely metastasis related. Orthoped ics team is following. 2. Breast cancer, stage 4. The patient received palliative radiation to the fracture area by Dr. Jaeger, details not clear. 3. The patient was suggested Faslodex at correction. I am not sure if that happened. 4. Multiple bone lesions. 5. Diabetes. 6. Dementia. 7. Schizophrenia. 8. bisphosphonate IV for the bone metastasis. 9. I will follow the patient during inpatient stay. tried to call daughter - no response s/p sx for left humerus Dr Martines consulted d/w dr mckeon - pt confused - she i followin some commands - has removed all her clothes - d/w RN - Patient Problems (1) Breast cancer Current Visit: No Status: Acute Qualifiers: Laterality: unspecified laterality Subjective Date of service: 05/13/18 Principal diagnosis: breast ca - bone mets Objective - Exam Narrative Exam: pt agitated - Constitutional Vitals: Last Vital Signs Temp 99.3 F 05/13/18 07:40 Pulse 100 H 05/13/18 07:40 Resp 18 05/13/18 07:40 BP 148/78 05/13/18 07:40 Pulse Ox 91 05/13/18 07:40 General appearance: other (left arm s/p sx) Performance status: 4-completely disabled - EENT Lymph node exam: negative cervical - Respiratory Respiratory effort: Positive: normal Respiratory: bilateral: CTA - Cardiovascular Heart Sounds: Present: S1 & S2 Extremity abnormal: edema (lefy arm) - Gastrointestinal General gastrointestinal: Present: soft Rectal Exam: deferred - Genitourinary Female genitourinary: Present: deferred - Integumentary Integumentary: warm - Musculoskeletal Musculoskeletal: other (left arm movements limited) - Neurologic Neurologic: other (confused) - Labs Lab Results: Laboratory Results - last 24 hr 05/13/18 04:05 Sodium 142 Potassium 3.0 L Chloride 102.5 Carbon Dioxide 26 Anion Gap 17 BUN 3 L Creatinine 0.3 L Estimated GFR > 60 BUN/Creatinine Ratio 10 Glucose 180 H Calcium 7.8 L Medications & Allergies - Medications Allergies/Adverse Reactions: Allergies No Known Allergies Allergy (Unverified 08/05/17 21:36) Home Medications: Home Medications Medication Instructions Recorded Confirmed Last Taken Type Amantadine HCl [Amantadine] 100 mg PO DAILY 08/10/17 05/10/18 Unknown History Anastrozole (Nf) [Arimidex (Nf)] 1 mg PO DAILY 08/10/17 05/10/18 Unknown History Rivastigmine [Exelon Patch 4.6 mg TP Q24HR 08/10/17 05/10/18 Unknown History 4.6mg/24hr] ALBUTEROL NEB's [Proventil 0.083% 2.5 mg IH Q4HRT PRN #30 nebu 04/03/18 05/10/18 Unknown Rx NEBS] Acetaminophen [Acetaminophen TAB] 650 mg PO Q4H PRN #15 tablet 04/03/18 05/10/18 Unknown Rx Insulin Aspart [Novolog] 1 dose SQ ACHS PRN #100 units 04/03/18 05/10/18 Unknown Rx amLODIPine [Norvasc] 5 mg PO QDAY #30 tablet 04/03/18 05/10/18 Unknown Rx oxyCODONE /ACETAMINOPHEN [Percocet 1 tab PO Q6H PRN #15 tablet 04/03/18 05/10/18 Unknown Rx 5/325 mg] Active Medications: Generic Name Dose Route Start Last Admin Trade Name Freq PRN Reason Stop Dose Admin Acetaminophen 650 mg 05/09/18 22:14 05/12/18 12:04 Tylenol [place] 650 mg Q4H PRN Administration Pain, Mild (1-3) Albuterol 2.5 mg 05/09/18 22:48 Proventil IH Q4HRT PRN Shortness Of Breath Amantadine HCl 100 mg 05/10/18 10:00 05/12/18 10:43 Symmetrel PO 100 mg DAILY NIGEL Administration Amlodipine Besylate 5 mg 05/10/18 10:00 05/12/18 10:43 Norvasc PO 5 mg QDAY NIGEL Administration Calcium Citrate 1 each 05/11/18 15:00 05/12/18 23:05 Citracal D 315mg-250 Units PO 1 each BID NIGEL Administration Dextrose 50 ml 05/12/18 08:19 D50w (25gm) Syringe IV PRN PRN Hypoglycemia Enoxaparin Sodium 40 mg 05/12/18 10:00 05/12/18 10:49 Lovenox SUB-Q 40 mg QDAY NIGEL Administration Sodium Chloride 1,000 mls @ 75 mls/hr 05/09/18 23:00 05/13/18 05:45 Nacl 0.9% 1000 Ml IV 75 mls/hr DIRECT NIGEL Administration Ceftriaxone Sodium 1 gm in 50 mls @ 100 mls/hr 05/13/18 10:00 Rocephin/Ns 1 Gm/50 Ml IV Q24HR [facility] Protocol Insulin Human Regular 0 units 05/12/18 11:30 05/12/18 23:05 Humulin R SUB-Q Not Given ACHS [facility] Protocol Morphine Sulfate 2 mg 05/09/18 22:13 05/12/18 19:46 Morphine IV 2 mg Q4H PRN Administration Pain, Moderate (4-6) Morphine Sulfate 4 mg 05/11/18 13:04 05/13/18 05:17 Morphine IV 4 mg Q4H PRN Administration Pain , Severe (7-10) Ondansetron HCl 4 mg 05/11/18 11:57 Zofran IV ONCE PRN Nausea And Vomiting Rivastigmine 4.6 mg 05/10/18 10:00 05/12/18 10:42 Exelon TD 4.6 mg Q24HR NIGEL Administration Sodium Chloride 10 ml 05/11/18 14:00 Sodium Chloride Flush Syringe 10 Ml IV PRN PRN FLUSH
[2018-05-13] MEDS: ROCEPHIN/NS 1 GM/50 ML 1 GM/50 ML BAG IV SCH (09:14)
[2018-05-13] MEDS: EXELON TD SCH (09:15)
[2018-05-13] MEDS: NORVASC PO SCH (09:15)
[2018-05-13] MEDS: SYMMETREL PO SCH (09:15)
[2018-05-13] MEDS: CITRACAL D 315MG-250 UNITS PO SCH ×2 (09:15→21:39)
[2018-05-13] MEDS: LOVENOX SUB-Q SCH (09:16)
[2018-05-13] MEDS ORDERED: MAGNESIUM SULFATE IV ONE (14:31)
--- NOTE | 2018-05-13 14:36 | Progress Note ---
Assessment and Plan Assessment and plan: This is a 77-year-old female with a history of dementia, diabetes mellitus, hypertension, schiozphrenia, breast cancer with metastatic bony lesions who has a left midshaft humerus fracture with displacement and overlapping of the bone after falling onto her left side. with resulting left mid humeral fracture. she is currently a [facility] resident and has in the past refused treatment for her malignancy. she also had odynaophagia during the last admission and family refused PEG placement at the time. she was on Prolxin injection in the past, monthly. During her last admission she had a right humerus fracture following a fall also CT CERVICAL SPINE: Osseous metastatic disease, worst at C6, T1 and T2 but smaller lytic lesions are present within the remainder of the visualized portion of the spine as well as within the right posterior parietal bone of the bony calvarium in the sternum No fracture is seen in the cervical spine Pelvic Xray: IMPRESSION: No fracture is seen in the pelvis or hips Suspected lytic bony metastases XR Humerus: Acute displaced mid humeral fracture -Acute metabolic encephalopathy, POA, multifactorial ETIOLOGY, INCLUDING UTI, PAIN from fracture, May discontinue restraints today, family at bedside. -Acute displaced pathological mid humeral fracture: Ortho consulted. Pain con trol.S/P closed reduction and insertion of intramedullary nail left humerus -Pathological Ribs, humerus fractures, and other sites due to metastatic breast cancer, poa -Breast cancer with metastatic disease; CONSULT DR Armstrong, oncologist, discussed with him -Acute Cystitis: Continue abx, urine culture -Advance Dementia: - Hypokalemia- Replace -Schizophrenia: Continue current treatment -OSTEOPOROSIS BY DIAGNOSIS: VITAMIN D AND CALCIUM -Mild malnutrition: will need 1:1 feeding, DIETICAN CONSULT -DVT prophylaxis reviewed -Fall precautions. - Plan discharge in AM History Interval history: Patient Seen and examined this morning, intermittent confusion with , improves in the day. No unusual per the grandson. No new complaints. Hospitalist Physical - Physical exam Narrative exam: Narrative exam: Gen: chronically disable, awake, generalized tenderness HEENT: NCAT, EOMI, legally blind bilateral Neck: supple, no adenopathy, no thyromegaly, no JVD CVS/Heart: RRR, normal S1S2, pulses present bilaterally Chest/Lungs: CTA B, Symmetrical chest expansion, good air entry bilaterally GI/Abdomen: soft, NTND, good bowel sounds, no guarding or rebound /Bladder: no suprapubic tenderness, no CVA or paraspinal tenderness Extermity/Skin: no c/c/e, no obvious rash MSK: sROM x 4 except left upper ext-in a sling Neuro: CN 2-12 grossly intact, follows Psych: calm - Constitutional Vitals: Temp Pulse Resp BP Pulse Ox 98.8 F 102 H 20 142/79 100 05/13/18 11:32 05/13/18 11:32 05/13/18 13:17 05/13/18 11:32 05/13/18 11:32 Results - Labs CBC & Chem 7: 05/09/18 17:55 05/13/18 04:05 Labs: Laboratory Last Values WBC 7.2 K/mm3 (4.5-11.0) 05/09/18 17:55 RBC 4.83 M/mm3 (3.65-5.03) 05/09/18 17:55 Hgb 13.5 gm/dl (10.1-14.3) 05/09/18 17:55 Hct 39.4 % (30.3-42.9) 05/09/18 17:55 MCV 82 fl (79-97) 05/09/18 17:55 MCH 28 pg (28-32) 05/09/18 17:55 MCHC 34 % (30-34) 05/09/18 17:55 RDW 15.0 % (13.2-15.2) 05/09/18 17:55 Plt Count 290 K/mm3 (140-440) 05/09/18 17:55 Lymph % (Auto) 12.3 % (13.4-35.0) L 05/09/18 17:55 [place] % (Auto) 5.9 % (0.0-7.3) 05/09/18 17:55 Eos % (Auto) 0.1 % (0.0-4.3) 05/09/18 17:55 Baso % (Auto) 1.1 % (0.0-1.8) 05/09/18 17:55 Lymph # 0.9 K/mm3 (1.2-5.4) L 05/09/18 17:55 [place] # 0.4 K/mm3 (0.0-0.8) 05/09/18 17:55 Eos # 0.0 K/mm3 (0.0-0.4) 05/09/18 17:55 Baso # 0.1 K/mm3 (0.0-0.1) 05/09/18 17:55 Seg Neutrophils % 80.6 % (40.0-70.0) H 05/09/18 17:55 Seg Neutrophils # 5.8 K/mm3 (1.8-7.7) 05/09/18 17:55 Sodium 142 mmol/L (137-145) 05/13/18 04:05 Potassium 3.0 mmol/L (3.6-5.0) L 05/13/18 04:05 Chloride 102.5 mmol/L (98-107) 05/13/18 04:05 Carbon Dioxide 26 mmol/L (22-30) 05/13/18 04:05 Anion Gap 17 mmol/L 05/13/18 04:05 BUN 3 mg/dL (7-17) L 05/13/18 04:05 Creatinine 0.3 mg/dL (0.7-1.2) L 05/13/18 04:05 Estimated GFR > 60 ml/min 05/13/18 04:05 BUN/Creatinine Ratio 10 % 05/13/18 04:05 Glucose 180 mg/dL (65-100) H 05/13/18 04:05 POC Glucose 233 (70-105) H 05/11/18 21:50 Calcium 7.8 mg/dL (8.4-10.2) L 05/13/18 04:05 Total Bilirubin 0.50 mg/dL (0.1-1.2) 05/09/18 19:16 AST 41 units/L (5-40) H 05/09/18 19:16 ALT 22 units/L (7-56) 05/09/18 19:16 Alkaline Phosphatase 164 units/L (35-129) H 05/09/18 19:16 Total Protein 7.4 g/dL (6.3-8.2) 05/09/18 19:16 Albumin 3.4 g/dL (3.9-5) L 05/09/18 19:16 Albumin/Globulin Ratio 0.9 % 05/09/18 19:16 Urine Color Yellow (Yellow) 05/12/18 05:14 Urine Turbidity Hazy (Clear) 05/12/18 05:14 Urine pH 5.0 (5.0-7.0) 05/12/18 05:14 Ur Specific [place] 1.008 (1.003-1.030) 05/12/18 05:14 Urine Protein <15 mg/dl mg/dL (Negative) 05/12/18 05:14 Urine Glucose (UA) Neg mg/dL (Negative) 05/12/18 05:14 Urine Ketones Neg mg/dL (Negative) 05/12/18 05:14 Urine Blood Sm (Negative) 05/12/18 05:14 Urine Nitrite Neg (Negative) 05/12/18 05:14 Urine Bilirubin Neg (Negative) 05/12/18 05:14 Urine Urobilinogen 2.0 mg/dL (<2.0) 05/12/18 05:14 Ur Leukocyte Esterase Lg (Negative) 05/12/18 05:14 Urine WBC (Auto) 23.0 /HPF (0.0-6.0) H 05/12/18 05:14 Urine RBC (Auto) 7.0 /HPF (0.0-6.0) 05/12/18 05:14 U Epithel Cells (Auto) < 1.0 /HPF (0-13.0) 05/12/18 05:14 Urine Bacteria (Auto) 1+ /HPF (Negative) 05/12/18 05:14 Urine WBC Clumps 3+ /HPF 05/09/18 17:42 Urine Mucus Few /HPF 05/12/18 05:14 Urine Yeast (Budding) Few /HPF 05/09/18 17:42
[2018-05-13] MEDS ORDERED: MAGNESIUM SULFATE 1 GM in NACL 0.9% 50 ML IV ONE (15:00)
[2018-05-13] MEDS: KCL 10MEQ/100ML 10 MEQ/100 ML BAG IV SCH ×4 (17:13→22:50)
[2018-05-14] MEDS ORDERED: ATIVAN IV ONE ×2 (04:30→05:00)
[2018-05-14] MEDS: HumuLIN R SUB-Q SCH ×3 (07:26→17:16)
[2018-05-14] MEDS: LOVENOX SUB-Q SCH ×2 (07:28→10:00)
[2018-05-14] MEDS: EXELON TD SCH ×2 (07:29→10:00)
[2018-05-14] MEDS: CITRACAL D 315MG-250 UNITS PO SCH ×2 (07:30→10:00)
[2018-05-14] MEDS: SYMMETREL PO SCH ×2 (07:30→10:00)
--- NOTE | 2018-05-14 07:38 | Hem/Onc Progress Note ---
Assessment and Plan breast ca bone mets pamidronate ca/vit d 1. Bone fracture of left upper extremity. Likely metastasis related. Orthoped ics team is following. 2. Breast cancer, stage 4. The patient received palliative radiation to the fracture area by Dr. Jaeger, details not clear. 3. The patient was suggested Faslodex at [facility]. I am not sure if that happened. 4. Multiple bone lesions. 5. Diabetes. 6. Dementia. 7. Schizophrenia. 8. bisphosphonate IV for the bone metastasis. 9. I will follow the patient during inpatient stay. tried to call daughter - no response s/p sx for left humerus Dr Martines consulted d/w dr mckeon - pt confused - she i followin some commands - has removed all her clothes - d/w RN 05/14 pt confused - blind - has edema and pain left arm tried to call daughter - left message - Patient Problems (1) Breast cancer Current Visit: No Status: Acute Qualifiers: Laterality: unspecified laterality Subjective Date of service: 05/14/18 Principal diagnosis: breast ca - bone mets Interval history: s/p left shpulder surgery - pt blind - has pain left arm Objective - Exam Narrative Exam: confused pain on movement left arm - Constitutional Vitals: Last Vital Signs Temp 98.4 F 05/14/18 04:10 Pulse 99 H 05/14/18 04:10 Resp 20 05/14/18 04:10 BP 146/75 05/14/18 04:10 Pulse Ox 93 05/14/18 04:10 General appearance: no acute distress (at rest) Performance status: 4-completely disabled - EENT ENT: other (blind) Lymph node exam: negative cervical - Respiratory Respiratory effort: Positive: normal Respiratory: bilateral: CTA (anteriorly) - Cardiovascular Heart Sounds: Present: S1 & S2 Extremity abnormal: edema (left arm) - Gastrointestinal General gastrointestinal: Present: soft, non-tender Rectal Exam: deferred - Genitourinary Female genitourinary: Present: deferred - Integumentary Integumentary: warm - Musculoskeletal Musculoskeletal: other (left arm fracture - s/p sx) - Neurologic Neurologic: other (confused - d/w RN) Medications & Allergies - Medications Allergies/Adverse Reactions: Allergies No Known Allergies Allergy (Unverified 08/05/17 21:36) Home Medications: Home Medications Medication Instructions Recorded Confirmed Last Taken Type Amantadine HCl [Amantadine] 100 mg PO DAILY 08/10/17 05/10/18 Unknown History Anastrozole (Nf) [Arimidex (Nf)] 1 mg PO DAILY 08/10/17 05/10/18 Unknown History Rivastigmine [Exelon Patch 4.6 mg TP Q24HR 08/10/17 05/10/18 Unknown History 4.6mg/24hr] ALBUTEROL NEB's [Proventil 0.083% 2.5 mg IH Q4HRT PRN #30 nebu 04/03/18 05/10/18 Unknown Rx NEBS] Acetaminophen [Acetaminophen TAB] 650 mg PO Q4H PRN #15 tablet 04/03/18 05/10/18 Unknown Rx Insulin Aspart [Novolog] 1 dose SQ ACHS PRN #100 units 04/03/18 05/10/18 Unknown Rx amLODIPine [Norvasc] 5 mg PO QDAY #30 tablet 04/03/18 05/10/18 Unknown Rx oxyCODONE /ACETAMINOPHEN [Percocet 1 tab PO Q6H PRN #15 tablet 04/03/18 05/10/18 Unknown Rx 5/325 mg] Active Medications: Generic Name Dose Route Start Last Admin Trade Name Freq PRN Reason Stop Dose Admin Acetaminophen 650 mg 05/09/18 22:14 05/12/18 12:04 Tylenol [place] 650 mg Q4H PRN Administration Pain, Mild (1-3) Albuterol 2.5 mg 05/09/18 22:48 Proventil IH Q4HRT PRN Shortness Of Breath Amantadine HCl 100 mg 05/10/18 10:00 05/14/18 07:30 Symmetrel PO 100 mg DAILY NIGEL Administration Amlodipine Besylate 5 mg 05/10/18 10:00 05/13/18 09:15 Norvasc PO 5 mg QDAY NIGEL Administration Calcium Citrate 1 each 05/11/18 15:00 05/14/18 07:30 Citracal D 315mg-250 Units PO 1 each BID NIGEL Administration Dextrose 50 ml 05/12/18 08:19 D50w (25gm) Syringe IV PRN PRN Hypoglycemia Enoxaparin Sodium 40 mg 05/12/18 10:00 05/14/18 07:28 Lovenox SUB-Q 40 mg QDAY NIGEL Administration Sodium Chloride 1,000 mls @ 75 mls/hr 05/09/18 23:00 05/13/18 22:01 Nacl 0.9% 1000 Ml IV 75 mls/hr DIRECT NIGEL Administration Ceftriaxone Sodium 1 gm in 50 mls @ 100 mls/hr 05/13/18 10:00 05/13/18 09:14 Rocephin/Ns 1 Gm/50 Ml IV 100 mls/hr Q24HR NIGEL Administration Protocol Insulin Human Regular 0 units 05/12/18 11:30 05/14/18 07:26 Humulin R SUB-Q 1 units ACHS NIGEL Administration Protocol Morphine Sulfate 2 mg 05/09/18 22:13 05/13/18 13:17 Morphine IV 2 mg Q4H PRN Administration Pain, Moderate (4-6) Morphine Sulfate 4 mg 05/11/18 13:04 05/13/18 22:48 Morphine IV 4 mg Q4H PRN Administration Pain , Severe (7-10) Ondansetron HCl 4 mg 05/11/18 11:57 Zofran IV ONCE PRN Nausea And Vomiting Rivastigmine 4.6 mg 05/10/18 10:00 05/14/18 07:29 Exelon TD 4.6 mg Q24HR NIGEL Administration Sodium Chloride 10 ml 05/11/18 14:00 Sodium Chloride Flush Syringe 10 Ml IV PRN PRN FLUSH
[2018-05-14 08:27] LABS: Calcium 7.7 mg/dL (8.4-10.2); Hemolysis Index 73
[2018-05-14 08:47] LABS: BUN/Creatinine Ratio 7; Blood Urea Nitrogen < 1.4 mg/dL (7-17)
[2018-05-14] MEDS ORDERED: MAGNESIUM SULFATE IV ONE ×2 (09:06→11:00)
[2018-05-14] MEDS: ROCEPHIN/NS 1 GM/50 ML 1 GM/50 ML BAG IV SCH (09:17)
[2018-05-14] MEDS: MORPHINE IV PRN ×3 (09:22→17:19)
[2018-05-14] MEDS: NORVASC PO SCH (10:00)
[2018-05-14] MEDS ORDERED: NACL 0.9% IV ONE (11:00)
--- NOTE | 2018-05-14 12:38 | Discharge Summary ---
Providers - Providers Date of Admission: 05/09/18 22:11 Attending physician: SILVESTRE HESTER MD 05/09/18 17:40 Consult to Physician [CONS] Routine Comment: Consulting Provider: JAMEEL FLORENCE Physician Instructions: Reason For Exam: humerus fracture in patient with bony mets 05/10/18 06:00 Consult to Physician [CONS] Routine Comment: Consulting Provider: SHANDRA ARMSTRONG Physician Instructions: Reason For Exam: BONY LESION SUSPICIOUS FOR METATASIS 05/11/18 13:06 Physical Therapy Evaluation and Treat [CONS] Routine Comment: pendulum exercises left upper extremity Reason For Exam: postop evaluation Weight bearing status?: Full wt bearing Assistive devices?: Yes If so list: Walker 05/11/18 14:09 Consult to Physician [CONS] Routine Comment: Consulting Provider: TIMI CARLSON Physician Instructions: fracture left humerus Reason For Exam: bone mets Primary care physician: STACEY CARTER Hospitalization Reason for admission: FALL WITH FRACTURE Condition: Stable Hospital course: This is a 77-year-old female with a history of dementia, diabetes mellitus, hypertension, schiozphrenia, breast cancer with metastatic bony lesions who has a left midshaft humerus fracture with displacement and overlapping of the bone after falling onto her left side. with resulting left mid humeral fracture. she is currently a assisted resident and has in the past refused treatment for her malignancy. she also had odynaophagia during the last admission and family refused PEG placement at the time. she was on Prolxin injection in the past, monthly. During her last admission she had a right humerus fracture following a fall also CT CERVICAL SPINE: Osseous metastatic disease, worst at C6, T1 and T2 but smaller lytic lesions are present within the remainder of the visualized portion of the spine as well as within the right posterior parietal bone of the bony calvarium in the sternum No fracture is seen in the cervical spine Pelvic Xray: IMPRESSION: No fracture is seen in the pelvis or hips Suspected lytic bony metastases XR Humerus: Acute displaced mid humeral fracture -Acute metabolic encephalopathy, POA, multifactorial ETIOLOGY, INCLUDING UTI, PAIN from fracture, May discontinue restraints today, family at bedside. Patient was noted to be confused, but following treatment of fracture, was noted to have a few days of sundowining and is back to baseline. -Acute displaced pathological mid humeral fracture: Ortho consulted. Pain control.S/P closed reduction and insertion of intramedullary nail left humerus -Pathological Ribs, humerus fractures, and other sites due to metastatic breast cancer, poa -Breast cancer with metastatic disease; CONSULT DR Armstrong AND HIS INPUT NOTED oncologist, discussed with him, he will continue to follow outpatient -Acute Cystitis: Continue abx, urine culture -Advance Dementia: - Hypokalemia- Replace -Schizophrenia: Continue current treatment -OSTEOPOROSIS BY DIAGNOSIS: VITAMIN D AND CALCIUM -Mild malnutrition: will need 1:1 feeding, RAIL SETTER CONSULT Disposition: [id number] Time spent for discharge: 35 mins Core Measure Documentation - Palliative Care Palliative Care/ Comfort Measures: Not Applicable - Core Measures Any of the following diagnoses?: none Exam - Physical Exam Narrative exam: Narrative exam: Gen: chronically disable, awake, generalized tenderness HEENT: NCAT, EOMI, legally blind bilateral Neck: supple, no adenopathy, no thyromegaly, no JVD CVS/Heart: RRR, normal S1S2, pulses present bilaterally Chest/Lungs: CTA B, Symmetrical chest expansion, good air entry bilaterally GI/Abdomen: soft, NTND, good bowel sounds, no guarding or rebound /Bladder: no suprapubic tenderness, no CVA or paraspinal tenderness Extermity/Skin: no c/c/e, no obvious rash MSK: sROM x 4 except left upper ext-in a sling Neuro: CN 2-12 grossly intact, follows Psych: calm - Constitutional Vitals: Temp Pulse Resp BP Pulse Ox 97.9 F 83 18 109/45 99 05/14/18 08:23 05/14/18 08:23 05/14/18 08:23 05/14/18 08:23 05/14/18 08:23 Plan Activity: advance as tolerated, fall precautions Diet: advance as tolerated Follow up with: STACEY CARTER MD [Primary Care Provider] - 3-5 Days JAMEEL FLORENCE MD [Staff Physician] - 7 Days SHANDRA ARMSTRONG MD [Staff Physician] - 7 Days Prescriptions: Calcium Citrate/Vit D 315-250 [Citracal D 315Mg-250 Units] 1 each PO BID #30 tablet oxyCODONE /ACETAMINOPHEN [Percocet 5/325 mg] 1 tab PO Q6H PRN #15 tablet PRN Reason: Pain , Severe (7-10)
[2018-05-14] MEDS ORDERED: POTASSIUM CHLORIDE PO NR (13:00)
[2018-05-14] MEDS: KCL 10MEQ/100ML 10 MEQ/100 ML BAG IV SCH ×2 (13:07→14:44)
--- NOTE | 2018-05-14 16:27 | Progress Note ---
Assessment and Plan Assessment and plan: This is a 77-year-old female with a history of dementia, diabetes mellitus, hypertension, schiozphrenia, breast cancer with metastatic bony lesions who has a left midshaft humerus fracture with displacement and overlapping of the bone after falling onto her left side. with resulting left mid humeral fracture. she is currently a senior living resident and has in the past refused treatment for her malignancy. she also had odynaophagia during the last admission and family refused PEG placement at the time. she was on Prolxin injection in the past, monthly. During her last admission she had a right humerus fracture following a fall also CT CERVICAL SPINE: Osseous metastatic disease, worst at C6, T1 and T2 but smaller lytic lesions are present within the remainder of the visualized portion of the spine as well as within the right posterior parietal bone of the bony calvarium in the sternum No fracture is seen in the cervical spine Pelvic Xray: IMPRESSION: No fracture is seen in the pelvis or hips Suspected lytic bony metastases XR Humerus: Acute displaced mid humeral fracture -Acute metabolic encephalopathy, POA, multifactorial ETIOLOGY, INCLUDING UTI, PAIN from fracture, May discontinue restraints today, family at bedside. Patient was noted to be confused, but following treatment of fracture, was noted to have a few days of sundowining and is back to baseline. -Acute displaced pathological mid humeral fracture: Ortho consulted. Pain control.S/P closed reduction and insertion of intramedullary nail left humerus -Pathological Ribs, humerus fractures, and other sites due to metastatic breast cancer, poa -Breast cancer with metastatic disease; CONSULT DR Armstrong AND HIS INPUT NOTED oncologist, discussed with him -Acute Cystitis: Continue abx, urine culture -Advance Dementia: - Hypokalemia- Replace -Schizophrenia: Continue current treatment -OSTEOPOROSIS BY DIAGNOSIS: VITAMIN D AND CALCIUM -Mild malnutrition: will need 1:1 feeding, ARTIST SCIENTIFIC CONSULT -DVT prophylaxis reviewed -Fall precautions. - Plan discharge in AM History Interval history: Patient Seen and examined this morning, off restraints today, improves in the da y. No unusual per the grandson. No new complaints. Hospitalist Physical - Physical exam Narrative exam: Narrative exam: Gen: chronically disable, awake, generalized tenderness HEENT: NCAT, EOMI, legally blind bilateral Neck: supple, no adenopathy, no thyromegaly, no JVD CVS/Heart: RRR, normal S1S2, pulses present bilaterally Chest/Lungs: CTA B, Symmetrical chest expansion, good air entry bilaterally GI/Abdomen: soft, NTND, good bowel sounds, no guarding or rebound /Bladder: no suprapubic tenderness, no CVA or paraspinal tenderness Extermity/Skin: no c/c/e, no obvious rash MSK: sROM x 4 except left upper ext-in a sling Neuro: CN 2-12 grossly intact, follows Psych: calm - Constitutional Vitals: Temp Pulse Resp BP Pulse Ox 97.9 F 87 18 122/52 91 05/14/18 08:23 05/14/18 13:14 05/14/18 13:14 05/14/18 13:14 05/14/18 13:14 Results - Labs CBC & Chem 7: 05/09/18 17:55 05/14/18 07:28 Labs: Laboratory Last Values WBC 7.2 K/mm3 (4.5-11.0) 05/09/18 17:55 RBC 4.83 M/mm3 (3.65-5.03) 05/09/18 17:55 Hgb 13.5 gm/dl (10.1-14.3) 05/09/18 17:55 Hct 39.4 % (30.3-42.9) 05/09/18 17:55 MCV 82 fl (79-97) 05/09/18 17:55 MCH 28 pg (28-32) 05/09/18 17:55 MCHC 34 % (30-34) 05/09/18 17:55 RDW 15.0 % (13.2-15.2) 05/09/18 17:55 Plt Count 290 K/mm3 (140-440) 05/09/18 17:55 Lymph % (Auto) 12.3 % (13.4-35.0) L 05/09/18 17:55 [place] % (Auto) 5.9 % (0.0-7.3) 05/09/18 17:55 Eos % (Auto) 0.1 % (0.0-4.3) 05/09/18 17:55 Baso % (Auto) 1.1 % (0.0-1.8) 05/09/18 17:55 Lymph # 0.9 K/mm3 (1.2-5.4) L 05/09/18 17:55 Barton # 0.4 K/mm3 (0.0-0.8) 05/09/18 17:55 Eos # 0.0 K/mm3 (0.0-0.4) 05/09/18 17:55 Baso # 0.1 K/mm3 (0.0-0.1) 05/09/18 17:55 Seg Neutrophils % 80.6 % (40.0-70.0) H 05/09/18 17:55 Seg Neutrophils # 5.8 K/mm3 (1.8-7.7) 05/09/18 17:55 Sodium 139 mmol/L (137-145) 05/14/18 07:28 Potassium 2.9 mmol/L (3.6-5.0) L* 05/14/18 07:28 Chloride 101.1 mmol/L (98-107) 05/14/18 07:28 Carbon Dioxide 29 mmol/L (22-30) 05/14/18 07:28 Anion Gap 12 mmol/L 05/14/18 07:28 BUN < 1.4 mg/dL (7-17) L 05/14/18 07:28 Creatinine 0.2 mg/dL (0.7-1.2) L 05/14/18 07:28 Estimated GFR > 60 ml/min 05/14/18 07:28 BUN/Creatinine Ratio 7 % 05/14/18 07:28 Glucose 154 mg/dL (65-100) H 05/14/18 07:28 POC Glucose 233 (70-105) H 05/11/18 21:50 Calcium 7.7 mg/dL (8.4-10.2) L 05/14/18 07:28 Total Bilirubin 0.50 mg/dL (0.1-1.2) 05/09/18 19:16 AST 41 units/L (5-40) H 05/09/18 19:16 ALT 22 units/L (7-56) 05/09/18 19:16 Alkaline Phosphatase 164 units/L (35-129) H 05/09/18 19:16 Total Protein 7.4 g/dL (6.3-8.2) 05/09/18 19:16 Albumin 3.4 g/dL (3.9-5) L 05/09/18 19:16 Albumin/Globulin Ratio 0.9 % 05/09/18 19:16 Urine Color Yellow (Yellow) 05/12/18 05:14 Urine Turbidity Hazy (Clear) 05/12/18 05:14 Urine pH 5.0 (5.0-7.0) 05/12/18 05:14 Ur Specific [place] 1.008 (1.003-1.030) 05/12/18 05:14 Urine Protein <15 mg/dl mg/dL (Negative) 05/12/18 05:14 Urine Glucose (UA) Neg mg/dL (Negative) 05/12/18 05:14 Urine Ketones Neg mg/dL (Negative) 05/12/18 05:14 Urine Blood Sm (Negative) 05/12/18 05:14 Urine Nitrite Neg (Negative) 05/12/18 05:14 Urine Bilirubin Neg (Negative) 05/12/18 05:14 Urine Urobilinogen 2.0 mg/dL (<2.0) 05/12/18 05:14 Ur Leukocyte Esterase Lg (Negative) 05/12/18 05:14 Urine WBC (Auto) 23.0 /HPF (0.0-6.0) H 05/12/18 05:14 Urine RBC (Auto) 7.0 /HPF (0.0-6.0) 05/12/18 05:14 U Epithel Cells (Auto) < 1.0 /HPF (0-13.0) 05/12/18 05:14 Urine Bacteria (Auto) 1+ /HPF (Negative) 05/12/18 05:14 Urine WBC Clumps 3+ /HPF 05/09/18 17:42 Urine Mucus Few /HPF 05/12/18 05:14 Urine Yeast (Budding) Few /HPF 05/09/18 17:42
[2018-05-14 16:46] VITALS: BP 139/54
== END 2018-05-14 18:00 | DRG 492 ==
LOC: ED 14:26 → 3B-SURG 22:11
PROVIDERS: ADMIT Internal Medicine; ATTEND Internal Medicine
PROC: 0PSD06Z Reposition Left Humeral Head with Intramedullary Internal Fixation Device, Open Approach (ICD-10-PCS; principal; 2018-05-11)
DX: M84.522A Pathological fracture in neoplastic disease, left humerus, initial encounter for fracture (principal); G93.41 Metabolic encephalopathy; C79.51 Secondary malignant neoplasm of bone; E44.1 Mild protein-calorie malnutrition; N30.00 Acute cystitis without hematuria; F05 Delirium due to known physiological condition; M84.58XA Pathological fracture in neoplastic disease, other specified site, initial encounter for fracture; F20.9 Schizophrenia, unspecified; M81.0 Age-related osteoporosis without current pathological fracture; F03.90 Unspecified dementia, unspecified severity, without behavioral disturbance, psychotic disturbance, mood disturbance, and anxiety; C50.919 Malignant neoplasm of unspecified site of unspecified female breast; H54.8 Legal blindness, as defined in USA; I10 Essential (primary) hypertension; E11.9 Type 2 diabetes mellitus without complications; W18.39XA Other fall on same level, initial encounter; Z68.36 Body mass index [BMI] 36.0-36.9, adult; Z79.51 Long term (current) use of inhaled steroids; Z79.899 Other long term (current) drug therapy; Z79.4 Long term (current) use of insulin; Y93.89 Activity, other specified; Y92.128 Other place in nursing home as the place of occurrence of the external cause; Y99.8 Other external cause status; E87.6 Hypokalemia
CPT/HCPCS: 36415; 70450; 71045; 72125; 72170; 80048; 80053; 81001; 82962; 84132; 85025; 86300; 87040; 87086; 96365; 96375; 96376; G0378; C1713; J0696; J1100; J1650; J1815; J1956; J2060; J2270; J2370; J2405; J2430; J2704; J2710; J3010; J3475; J3480; J7030

== ENCOUNTER 2018-06-02 10:33 | Inpatient (IN) | payer MEDICARE, MEDICAID ==
[2018-06-02] MEDS ORDERED: AMIDATE IV ONE ×2 (10:45→15:20)
[2018-06-02] MEDS ORDERED: ZEMURON IV ONE ×2 (10:46→15:20)
[2018-06-02] MEDS ORDERED: NACL 0.9% 1000 ML IV ONE (10:48)
[2018-06-02] MEDS ORDERED: LEVAQUIN 500MG/100ML 500 MG/100 ML BAG IV ONE (10:50)
[2018-06-02] MEDS ORDERED: ARTIFICIAL TEARS OPHTH OINT OU PRN (10:50)
[2018-06-02] MEDS ORDERED: VASELINE LIP THERAPY TP PRN (10:50)
[2018-06-02] MEDS ORDERED: SUBLIMAZE IV PRN (10:50)
[2018-06-02] MEDS ORDERED: TYLENOL PR ONE ×2 (10:50→19:43)
[2018-06-02] MEDS ORDERED: VERSED IV PRN (10:50)
--- NOTE | 2018-06-02 10:53 | Emergency Department Report ---
ED General Adult HPI - General Chief complaint: Dyspnea/Respdistress Stated complaint: RESPIRATORY DISTRESS Time Seen by Provider: 06/02/18 10:47 Source: EMS (verbal report received from EMS.ems notes not available at time of chart dictation), RN notes reviewed, old records reviewed Mode of arrival: Stretcher Limitations: Altered Mental Status - History of Present Illness Initial comments: This is a 77-year-old female presenting to the emergency room from a local fdc. The patient is brought to the hospital by EMS for fever, altered mental status, respiratory failure, distress. As per verbal report from EMS, the patient reportedly developed respiratory distress approximately 15 minutes before they were called over 911. EMS does not recall exactly what time they were contacted. They report fever of greater than 102 at the fdc, and reports that the patient was hypoxic in the field, with a pulse ox of 60%. History the patient on CPAP in the field. Patient had a normal fingerstick in the field, and in the emergency room. Upon arrival to the emergency room, the patient is obtunded, on CPAP, with a GCS of 3. There is no history of trauma as per EMS. They indicate the fdc has not indicated any advance directives. In addition, enclosed fdc paperwork does not contain a signed DO NOT RESUSCITATE, DO NOT INTUBATE. Given fever, altered mental status, obtundation, in conjunction with no available signed advanced directives, the patient is intubated by myself, using direct laryngoscopy, and a 7.5 endotracheal tube was inserted with 1 attempt, with no difficulty. Post intubation x-ray demonstrated placement into the right mainstem bronchus, and the tube is subsequently pulled back 3 cm. In the emergency room, post intubation, patient found to have a fever greater than 104, and a lactic acid of greater than 8. The patient will be resuscitated according to the sepsis pathway with broad-sp ectrum antibiotics, IV fluids, rectal acetaminophen, and critical care consultation. Prognosis is poor, however there are no friends or family available for collateral information at this time. Case was discussed with critical care physician, Dr. Rola Kraft, who agrees with placement into the intensive care unit, and she will follow in consultation. Hospital physician was paged to arrange admission, we are awaiting callback. Patient is altered upon presentation, and therefore cannot describe the qualitative nature of her symptoms, radiation, exacerbating or relieving factors. -: This morning Radiation: other Quality: other Consistency: other Improves with: other Worsens with: other Associated Symptoms: other - Related Data Home Medications Medication Instructions Recorded Confirmed Last Taken Amantadine HCl [Amantadine] 100 mg PO DAILY 08/10/17 06/02/18 Unknown Rivastigmine [Exelon Patch 4.6 mg TP Q24HR 08/10/17 06/02/18 Unknown 4.6mg/24hr] Benztropine Mesylate 0.5 mg PO DAILY 06/02/18 06/02/18 Unknown Insulin Aspart [NovoLOG 100 1 dose SQ ACHS PRN 06/02/18 06/02/18 Unknown UNITS/ML VIAL] Insulin Glargine,Hum.rec.anlog 10 unit SQ QHS 06/02/18 06/02/18 Unknown [Basaglar Kwikpen U-100] LORazepam [Ativan] 1 mg PO TID PRN 06/02/18 06/02/18 Unknown Tamoxifen Citrate 20 mg PO QDAY 06/02/18 06/02/18 Unknown fentaNYL [Fentanyl] 1 each TD Q72HR 06/02/18 06/02/18 Unknown Previous Rx's Medication Instructions Recorded Last Taken Type ALBUTEROL NEB's [Proventil 0.083% 2.5 mg IH Q4HRT PRN #30 nebu 04/03/18 Unknown Rx NEBS] Acetaminophen [Acetaminophen TAB] 650 mg PO Q4H PRN #15 tablet 04/03/18 Unknown Rx amLODIPine [Norvasc] 5 mg PO QDAY #30 tablet 04/03/18 Unknown Rx Calcium Citrate/Vit D 315-250 1 each PO BID #30 tablet 05/14/18 Unknown Rx [Citracal D 315Mg-250 Units] oxyCODONE /ACETAMINOPHEN [Percocet 1 tab PO Q6H PRN #15 tablet 05/14/18 Unknown Rx 5/325 mg] Allergies Allergy/AdvReac Type Severity Reaction Status Date / Time No Known Allergies Allergy Unverified 08/05/17 21:36 ED Review of Systems ROS: Stated complaint: RESPIRATORY DISTRESS Other details as noted in HPI Comment: Unobtainable due to pts medical conditions ED Past Medical Hx - Past Medical History Previous Medical History?: Yes Hx Hypertension: Yes (Echo done last year) Hx Heart Attack/AMI: No Hx Congestive Heart Failure: No Hx Diabetes: Yes Hx Deep Vein Thrombosis: No Hx Pulmonary Embolism: No Hx Renal Disease: No Hx Sickle Cell Disease: No Hx Arthritis: No Hx Seizures: No Hx Kidney Stones: No Hx Psychiatric Treatment: Yes (schizophrenia) Hx Asthma: No Hx COPD: No Hx Tuberculosis: No Hx Dementia: Yes Additional medical history: legal blindness - Surgical History Hx Coronary Stent: No Hx Internal Defibrillator: No Additional Surgical History: unknown - Social History Smoking Status: Unknown if ever smoked Substance Use Type: None - Medications Home Medications: Home Medications Medication Instructions Recorded Confirmed Last Taken Type Amantadine HCl [Amantadine] 100 mg PO DAILY 08/10/17 06/02/18 Unknown History Rivastigmine [Exelon Patch 4.6 mg TP Q24HR 08/10/17 06/02/18 Unknown History 4.6mg/24hr] ALBUTEROL NEB's [Proventil 0.083% 2.5 mg IH Q4HRT PRN #30 nebu 04/03/18 06/02/18 Unknown Rx NEBS] Acetaminophen [Acetaminophen TAB] 650 mg PO Q4H PRN #15 tablet 04/03/18 06/02/18 Unknown Rx amLODIPine [Norvasc] 5 mg PO QDAY #30 tablet 04/03/18 06/02/18 Unknown Rx Calcium Citrate/Vit D 315-250 1 each PO BID #30 tablet 05/14/18 06/02/18 Unknown Rx [Citracal D 315Mg-250 Units] oxyCODONE /ACETAMINOPHEN [Percocet 1 tab PO Q6H PRN #15 tablet 05/14/18 06/02/18 Unknown Rx 5/325 mg] Benztropine Mesylate 0.5 mg PO DAILY 06/02/18 06/02/18 Unknown History Insulin Aspart [NovoLOG 100 1 dose SQ ACHS PRN 06/02/18 06/02/18 Unknown History UNITS/ML VIAL] Insulin Glargine,Hum.rec.anlog 10 unit SQ QHS 06/02/18 06/02/18 Unknown History [Basaglar Kwikpen U-100] LORazepam [Ativan] 1 mg PO TID PRN 06/02/18 06/02/18 Unknown History Tamoxifen Citrate 20 mg PO QDAY 06/02/18 06/02/18 Unknown History fentaNYL [Fentanyl] 1 each TD Q72HR 06/02/18 06/02/18 Unknown History ED Physical Exam - General Limitations: Altered Mental Status General appearance: obtunded - Head Head exam: Present: atraumatic - Eye Eye exam: Present: normal appearance, EOMI. Absent: nystagmus - ENT ENT exam: Present: mucous membranes dry, normal external ear exam, other (copious secretions noted in oropharynx.) - Neck Neck exam: Present: normal inspection. Absent: tenderness, meningismus - Respiratory Respiratory exam: Present: respiratory distress. Absent: normal lung sounds bilaterally - Cardiovascular Cardiovascular Exam: Present: normal rhythm, tachycardia, normal heart sounds. Absent: bradycardia, irregular rhythm - GI/Abdominal GI/Abdominal exam: Present: soft. Absent: distended, tenderness, guarding, rebound, rigid, pulsatile mass - Rectal Rectal exam: Absent: normal inspection (patient has a stage II sacral ulcer, with no redness, pus or streaking) - External exam: Present: normal external exam - Extremities Exam Extremities exam: Present: normal inspection, pedal edema, other (patient moved bilateral upper, lower extremities prior to intubation.) - Back Exam Back exam: Absent: tenderness, CVA tenderness (R), paraspinal tenderness, vertebral tenderness - Neurological Exam Neurological exam: Present: altered, other (unable to complete detailed neurologic examination secondary to acute encephalopathy, delirium) - Psychiatric Psychiatric exam: Present: other (altered, nonverbal) - Skin Skin exam: Present: dry. Absent: intact (sacral ulcer is noted) ED Course Vital Signs 06/02/18 06/02/18 06/02/18 10:40 10:50 10:51 Temperature 105.9 F H Pulse Rate 124 H 118 H 113 H Respiratory 12 Rate Blood Pressure 135/89 81/30 Blood Pressure 141/109 [Right] O2 Sat by Pulse 100 Oximetry 06/02/18 06/02/18 06/02/18 11:31 12:16 13:16 Temperature Pulse Rate 106 H 108 H 106 H Respiratory 12 12 12 Rate Blood Pressure Blood Pressure 119/41 90/31 87/33 [Right] O2 Sat by Pulse 98 92 93 Oximetry 06/02/18 06/02/18 06/02/18 14:15 15:15 16:15 Temperature Pulse Rate 105 H 103 H 107 H Respiratory 12 12 12 Rate Blood Pressure Blood Pressure 86/48 86/37 83/35 [Right] O2 Sat by Pulse 92 94 92 Oximetry 06/02/18 06/02/18 06/02/18 16:30 16:48 17:30 Temperature 100.6 F H Pulse Rate 166 H 116 H 110 H Respiratory 16 Rate Blood Pressure 99/42 Blood Pressure 85/32 [Right] O2 Sat by Pulse 92 Oximetry 06/02/18 18:30 Temperature Pulse Rate 110 H Respiratory 16 Rate Blood Pressure Blood Pressure 71/30 [Right] O2 Sat by Pulse 94 Oximetry - Reevaluation(s) Reevaluation #1: 06/02/18 13:08 Dr Pandey accepts Reevaluation #2: 06/02/18 13:42 Patient's daughter is at the bedside. Extensive discussion had with daughter and family regarding prognosis, goals of care, and advanced directives. The daughter states she does not want the patient to have chest compressions or CPR. She also states that for the time being, she is amenable to the patient being ventilated and is amenable to having the endotracheal tube remained in place. In the past, she has spoken to [facility], and is interested in resuming conversation for hospice care, palliative care. Case management consult has been requested to obtain hospice evaluation. Patient found to be hypotensive currently, with a blood pressure of 87/38. Recommended placement of central line for vasopressors. Described to patient's family that without placement of a central line and initiation of vasopressor therapy, patient would likely suffer a circulatory and subsequent cardiovascular collapse. Family verbalizes understanding, and currently, invasive surgical procedures are not in accordance with her goals of care. The patient's daughter verbalizes understanding in her own words that without placement of a central line, patient's condition will likely deteriorate. However, the patient's daughter states she does not want a central line placed. She is amenable to peripheral IV, fluids, antibiotics, pain medication, anxiety medication as needed/directed. Hospital physician, critical care physician have been updated regarding the patient's status. 06/02/18 19:47 - Intubation Time Out Performed: No (emergency situation) Sedative: Etomidate Mg Given: 20 Paralytic: Rocuronium Mg Given: 100 Laryngoscope: Genaro Size: 3 ET Tube Size: 7.5 Tube Secured Depth (cm): 23 Tube Secured Location: teeth Tube Placement Confirmation: visualized tube passing t, equal breath sounds bilat, no breath sounds over epi, confirmation by capnometr Patient Tolerated Procedure: well Intubation Complications: none Additional Comments: Patient placed on nasal cannula at 15 L/m. Procedures [id number] ventilation. Bagged up to 99, 100% on room air. Direct laryngoscopy performed after induction and paralysis, copious secretions are noted in the oropharynx and suctioned aggressively, and 7.5 endotracheal tube was inserted, without significant difficulty. ED Medical Decision Making - Lab Data Result diagrams: 06/02/18 10:56 06/02/18 10:56 Vital Signs 06/02/18 06/02/18 06/02/18 10:40 10:50 10:51 Temperature 105.9 F H Pulse Rate 124 H 118 H 113 H Respiratory 12 Rate Blood Pressure 135/89 81/30 Blood Pressure 141/109 [Right] O2 Sat by Pulse 100 Oximetry 06/02/18 11:31 Temperature Pulse Rate 106 H Respiratory 20 Rate Blood Pressure Blood Pressure 119/41 [Right] O2 Sat by Pulse 98 Oximetry Lab Results 06/02/18 06/02/18 06/02/18 Range/Units 10:56 10:56 10:56 WBC 7.3 (4.5-11.0) K/mm3 RBC 5.10 H (3.65-5.03) M/mm3 Hgb 14.5 H (10.1-14.3) gm/dl Hct 44.4 H (30.3-42.9) % MCV 87 (79-97) fl MCH 28 (28-32) pg MCHC 33 (30-34) % RDW 19.6 H (13.2-15.2) % Plt Count 298 (140-440) K/mm3 Lymph % (Auto) 31.6 (13.4-35.0) % Carson % (Auto) 4.9 (0.0-7.3) % Eos % (Auto) 0.2 (0.0-4.3) % Baso % (Auto) 1.5 (0.0-1.8) % Lymph # 2.3 (1.2-5.4) K/mm3 Carson # 0.4 (0.0-0.8) K/mm3 Eos # 0.0 (0.0-0.4) K/mm3 Baso # 0.1 (0.0-0.1) K/mm3 Seg Neutrophils % 61.8 (40.0-70.0) % Seg Neutrophils # 4.5 (1.8-7.7) K/mm3 PT 21.0 H (12.2-14.9) Sec. INR 1.69 H (0.87-1.13) APTT 32.6 (24.2-36.6) Sec. POC ABG pH (7.35-7.45) POC ABG pCO2 (35-45) POC ABG pO2 (80-105) POC ABG HCO3 (22-26 mml/L) POC ABG Total CO2 (23-27mmol/L) POC ABG O2 Sat POC ABG Base Excess ((-2) - (+3)mmol/L) FiO2 % Sodium 166 H* (137-145) mmol/L Potassium 3.7 (3.6-5.0) mmol/L Chloride 116.7 H (98-107) mmol/L Carbon Dioxide 28 (22-30) mmol/L Anion Gap 25 mmol/L BUN 30 H (7-17) mg/dL Creatinine 1.5 H (0.7-1.2) mg/dL Estimated GFR 41 ml/min BUN/Creatinine Ratio 20 % Glucose 132 H (65-100) mg/dL Lactic Acid (0.7-2.0) mmol/L Calcium 7.5 L (8.4-10.2) mg/dL Magnesium 2.10 (1.7-2.3) mg/dL Total Bilirubin 0.90 (0.1-1.2) mg/dL AST 121 H (5-40) units/L ALT 40 (7-56) units/L Alkaline Phosphatase 228 H (35-129) units/L Total Creatine Kinase 128 (30-135) units/L Troponin T 0.047 H (0.00-0.029) ng/mL Total Protein 7.0 (6.3-8.2) g/dL Albumin 2.4 L (3.9-5) g/dL Albumin/Globulin Ratio 0.5 % Triglycerides 193 H (2-149) mg/dL Cholesterol 77 (50-199) mg/dL LDL Cholesterol Direct 34 L (50-130) mg/dL HDL Cholesterol 24 L (40-59) mg/dL Cholesterol/HDL Ratio 3.20 % Urine Color (Yellow) Urine Turbidity (Clear) Urine pH (5.0-7.0) Ur Specific [place] (1.003-1.030) Urine Protein (Negative) mg/dL Urine Glucose (UA) (Negative) mg/dL Urine Ketones (Negative) mg/dL Urine Blood (Negative) Urine Nitrite (Negative) Urine Bilirubin (Negative) Urine Urobilinogen (<2.0) mg/dL Ur Leukocyte Esterase (Negative) Urine WBC (Auto) (0.0-6.0) /HPF Urine RBC (Auto) (0.0-6.0) /HPF U Epithel Cells (Auto) (0-13.0) /HPF Urine Bacteria (Auto) (Negative) /HPF Urine WBC Clumps /HPF Urine Mucus /HPF Urine Yeast (Budding) /HPF 06/02/18 06/02/18 06/02/18 Range/Units 10:56 11:29 11:46 WBC (4.5-11.0) K/mm3 RBC (3.65-5.03) M/mm3 Hgb (10.1-14.3) gm/dl Hct (30.3-42.9) % MCV (79-97) fl MCH (28-32) pg MCHC (30-34) % RDW (13.2-15.2) % Plt Count (140-440) K/mm3 Lymph % (Auto) (13.4-35.0) % Carson % (Auto) (0.0-7.3) % Eos % (Auto) (0.0-4.3) % Baso % (Auto) (0.0-1.8) % Lymph # (1.2-5.4) K/mm3 Carson # (0.0-0.8) K/mm3 Eos # (0.0-0.4) K/mm3 Baso # (0.0-0.1) K/mm3 Seg Neutrophils % (40.0-70.0) % Seg Neutrophils # (1.8-7.7) K/mm3 PT (12.2-14.9) Sec. INR (0.87-1.13) APTT (24.2-36.6) Sec. POC ABG pH 7.379 (7.35-7.45) POC ABG pCO2 44.5 (35-45) POC ABG pO2 309 H (80-105) POC ABG HCO3 26.3 (22-26 mml/L) POC ABG Total CO2 28 (23-27mmol/L) POC ABG O2 Sat 100 POC ABG Base Excess 1 ((-2) - (+3)mmol/L) FiO2 100 % Sodium (137-145) mmol/L Potassium (3.6-5.0) mmol/L Chloride (98-107) mmol/L Carbon Dioxide (22-30) mmol/L Anion Gap mmol/L BUN (7-17) mg/dL Creatinine (0.7-1.2) mg/dL Estimated GFR ml/min BUN/Creatinine Ratio % Glucose (65-100) mg/dL Lactic Acid 8.10 H* (0.7-2.0) mmol/L Calcium (8.4-10.2) mg/dL Magnesium (1.7-2.3) mg/dL Total Bilirubin (0.1-1.2) mg/dL AST (5-40) units/L ALT (7-56) units/L Alkaline Phosphatase (35-129) units/L Total Creatine Kinase (30-135) units/L Troponin T (0.00-0.029) ng/mL Total Protein (6.3-8.2) g/dL Albumin (3.9-5) g/dL Albumin/Globulin Ratio % Triglycerides (2-149) mg/dL Cholesterol (50-199) mg/dL LDL Cholesterol Direct (50-130) mg/dL HDL Cholesterol (40-59) mg/dL Cholesterol/HDL Ratio % Urine Color [place] (Yellow) Urine Turbidity Cloudy (Clear) Urine pH 5.0 (5.0-7.0) Ur Specific [place] 1.030 (1.003-1.030) Urine Protein 30 mg/dl (Negative) mg/dL Urine Glucose (UA) Neg (Negative) mg/dL Urine Ketones Tr (Negative) mg/dL Urine Blood Neg (Negative) Urine Nitrite Neg (Negative) Urine Bilirubin Neg (Negative) Urine Urobilinogen 4.0 (<2.0) mg/dL Ur Leukocyte Esterase Sm (Negative) Urine WBC (Auto) 18.0 H (0.0-6.0) /HPF Urine RBC (Auto) 9.0 (0.0-6.0) /HPF U Epithel Cells (Auto) 2.0 (0-13.0) /HPF Urine Bacteria (Auto) 4+ (Negative) /HPF Urine WBC Clumps 2+ /HPF Urine Mucus 3+ /HPF Urine Yeast (Budding) 2+ /HPF - EKG Data -: EKG Interpreted by Me EKG shows normal: sinus rhythm - EKG Data 06/02/18 12:34 Sinus tachycardia, 108 bpm, normal axis, QTC prolonged, low voltage, atrial enlargement, abnormal EKG, this is not consistent with ST elevation myocardial infarction. - Radiology Data Radiology results: report reviewed, image reviewed Noncontrast CT scan of the brain is negative for acute disease. X-ray the chest suggests a right mainstem intubation, left sided atelectasis versus pneumonia versus infiltrate. The tube was retracted 3 cm by the respiratory therapist. - Medical Decision Making Differential diagnosis, including but not limited to: Pneumonia, urinary tract infection, sepsis, bacteremia, viremia, dehydration, malnutrition Assessment and plan: 77-year-old female with fever, tachycardia, respiratory failure, lactic acidosis, suspicious for multifocal sepsis. She is intubated, hemodynamically stable at this time, critical care consultation has been obtained, and we will admit to the medical service for further resuscitation. Found to be hypernatremic, with evidence of malnutrition, I will administer IV fluids as described, and deferred to the inpatient team to further address these other abnormalities. Critical Care Time: Yes Critical care time in (mins) excluding proc time.: 120 Critical care attestation.: If time is entered above; I have spent that time in minutes in the direct care of this critically ill patient, excluding procedure time. ED Disposition Clinical Impression: Sepsis Qualifiers: Sepsis type: sepsis due to unspecified organism Qualified Code(s): A41.9 - Sepsis, unspecified organism Respiratory failure Qualifiers: Chronicity: unspecified Respiratory failure complication: unspecified whether with hypoxia or hypercapnia Qualified Code(s): J96.90 - Respiratory failure, unspecified, unspecified whether with hypoxia or hypercapnia Disposition: OP ADMIT IP TO THIS HOSP Is pt being admited?: Yes Does the pt Need Aspirin: No Condition: Critical
[2018-06-02] MEDS ORDERED: NACL 0.9% 1000 ML 2,000 ML ONE (10:54)
[2018-06-02] MEDS ORDERED: MAXIPIME/NS 2 GM/100 ML 2 GM/100 ML BAG IV SCH (11:00)
[2018-06-02] MEDS ORDERED: MIDAZOLAM 100 MG in NACL 0.9% 80 ML IV SCH (11:00)
[2018-06-02] MEDS ORDERED: fentaNYL DRIP Premix 2,000 MCG/100 ML BAG IV SCH (11:00)
[2018-06-02] MEDS ORDERED: VANCOMYCIN PHARMACY TO DOSE IV SCH (11:00)
--- NOTE | 2018-06-02 11:12 | XRay Report ---
AP CHEST :06/02/18 10: 51 CLINICAL: Post intubation. COMPARISON:05/09/18 FINDINGS: An endotracheal tube has been placed and the tip is in the proximal right mainstem bronchus. The right lung is normally expanded and clear. Streaky opacities in the left lung base but otherwise clear left lung. No pneumothorax. No other tubes or lines. The heart is normal size. IMPRESSION: Endotracheal tube tip in the right mainstem bronchus. Recommend pullback. I spoke to Laron in the emergency department regarding the endotracheal tube position on 06/02/18 at 1112.
[2018-06-02 11:20] LABS: Basophils # (Auto) 0.1 K/mm3 (0.0-0.1); Basophils % (Auto) 1.5 % (0.0-1.8); Eosinophils % (Auto) 0.2 % (0.0-4.3); Hematocrit 44.4 % (30.3-42.9); Hemoglobin 14.5 gm/dl (10.1-14.3); Lymphocytes # (Auto) 2.3 K/mm3 (1.2-5.4); Lymphocytes % (Auto) 31.6 % (13.4-35.0); Mean Corpuscular HGB Conc 33 % (30-34); Mean Corpuscular Volume 87 fl (79-97); Monocytes # (Auto) 0.4 K/mm3 (0.0-0.8); Monocytes % (Auto) 4.9 % (0.0-7.3); Platelet Count 298 K/mm3 (140-440); Red Cell Distribution Width 19.6 % (13.2-15.2)
[2018-06-02 11:25] LABS: INR 1.69 (0.87-1.13)
[2018-06-02 11:26] LABS: Partial Thromboplastin Time 32.6 Sec. (24.2-36.6)
[2018-06-02 11:45] LABS: Albumin 2.4 g/dL (3.9-5); Calcium 7.5 mg/dL (8.4-10.2)
[2018-06-02 11:57] LABS: Bacteria,Urine 4+ /HPF (Negative); Bilirubin,Urine NEG (Negative); Blood,Urine NEG (Negative); Color,Urine Amber (Yellow); Mucus,Urine 3+ /HPF
[2018-06-02] MEDS ORDERED: VANCOMYCIN 1,750 MG in NACL 0.9% 500 ML 500 ML IV ONE (12:00)
[2018-06-02] MEDS ORDERED: NACL 0.9% 500 ML 500 ML ONE ×2 (12:03→14:14)
[2018-06-02 12:15] LABS: Chol/HDL Ratio 3.2 %
--- NOTE | 2018-06-02 12:19 | Cat Scan Report ---
CT HEAD WITHOUT CONTRAST: HISTORY: Altered mental status. TECHNIQUE: Sequential CT images without contrast. FINDINGS: Images obtained show bilateral prominence of the sulci and ventricles. There are no abnormal intra- or extra-axial blood or fluid collections. There are no focal masses or evidence of mass effect. The palomino white matter differentiation appears within normal limits. Regions of periventricular decreased attenuation are consistent with microangiopathic ischemic disease. The posterior fossa structures including the fourth ventricle, cerebellum, and brainstem appear normal. IMPRESSION: Evidence of atrophy and microangiopathic ischemic disease. No acute intracranial process noted. No significant change since 05/09/18.
--- NOTE | 2018-06-02 12:40 | Consultation ---
History of Present Illness Consult date: 06/02/18 Requesting physician: BRITTNEE VASQUEZ Reason for consult: other (Severe sepsis, Acute hypoxic respiratory failure) History of present illness: This is a 77-year-old female presenting to the emergency room from a local assisted. The patient is brought to the hospital by EMS for fever, altered mental status, respiratory failure, distress. As per verbal report from EMS, the patient reportedly developed respiratory distress approximately 15 minutes before they were called over 911. EMS does not recall exactly what time they were contacted. They report fever of greater than 102 at the assisted, and repor ts that the patient was hypoxic in the field, with a pulse ox of 60%. History the patient on CPAP in the field. Patient had a normal fingerstick in the field, and in the emergency room. Upon arrival to the emergency room, the patient is obtunded, on CPAP, with a GCS of 3. There is no history of trauma as per EMS. They indicate the assisted has not indicated any advance directives. In addition, enclosed assisted paperwork does not contain a signed DO NOT RESUSCITATE, DO NOT INTUBATE. Given fever, altered mental status, obtundation, in conjunction with no available signed advanced directives, the patient is intubated by Dr. Vasquez using direct laryngoscopy, and a 7.5 endotracheal tube was inserted with 1 attempt, with no difficulty. Post intubation x-ray demonstrated placement into the right mainstem bronchus, and the tube was subsequently pulled back 3 cm. In the emergency room, post intubation, patient found to have a fever greater than 104, and a lactic acid of greater than 8. The patient will be resuscitated according to the sepsis pathway with broad- spectrum antibiotics, IV fluids, rectal acetaminophen, and critical care consultation. I have been consulted fro critical care management/ Patient was seen and examined. Vitals, labs, medications, chart and imaging reviewed ROS: Stated complaint: RESPIRATORY DISTRESS Other details as noted in HPI Comment: Unobtainable due to pts medical conditions - Past Medical History Previous Medical History?: Yes Hx Hypertension: Yes (Echo done last year) Hx Heart Attack/AMI: No Hx Congestive Heart Failure: No Hx Diabetes: Yes Hx Deep Vein Thrombosis: No Hx Pulmonary Embolism: No Hx Renal Disease: No Hx Sickle Cell Disease: No Hx Arthritis: No Hx Seizures: No Hx Kidney Stones: No Hx Psychiatric Treatment: Yes (schizophrenia) Hx Asthma: No Hx COPD: No Hx Tuberculosis: No Hx Dementia: Yes Additional medical history: legal blindness - Surgical History Hx Coronary Stent: No Hx Internal Defibrillator: No Additional Surgical History: unknown - Social History Smoking Status: Unknown if ever smoked Substance Use Type: None Medications and Allergies Allergies Allergy/AdvReac Type Severity Reaction Status Date / Time No Known Allergies Allergy Unverified 08/05/17 21:36 Home Medications Medication Instructions Recorded Confirmed Last Taken Type Amantadine HCl [Amantadine] 100 mg PO DAILY 08/10/17 06/02/18 Unknown History Rivastigmine [Exelon Patch 4.6 mg TP Q24HR 08/10/17 06/02/18 Unknown History 4.6mg/24hr] ALBUTEROL NEB's [Proventil 0.083% 2.5 mg IH Q4HRT PRN #30 nebu 04/03/18 06/02/18 Unknown Rx NEBS] Acetaminophen [Acetaminophen TAB] 650 mg PO Q4H PRN #15 tablet 04/03/18 06/02/18 Unknown Rx amLODIPine [Norvasc] 5 mg PO QDAY #30 tablet 04/03/18 06/02/18 Unknown Rx Calcium Citrate/Vit D 315-250 1 each PO BID #30 tablet 05/14/18 06/02/18 Unknown Rx [Citracal D 315Mg-250 Units] oxyCODONE /ACETAMINOPHEN [Percocet 1 tab PO Q6H PRN #15 tablet 05/14/18 06/02/18 Unknown Rx 5/325 mg] Benztropine Mesylate 0.5 mg PO DAILY 06/02/18 06/02/18 Unknown History Insulin Aspart [NovoLOG 100 1 dose SQ ACHS PRN 06/02/18 06/02/18 Unknown History UNITS/ML VIAL] Insulin Glargine,Hum.rec.anlog 10 unit SQ QHS 06/02/18 06/02/18 Unknown History [Basagltrent López U-100] LORazepam [Ativan] 1 mg PO TID PRN 06/02/18 06/02/18 Unknown History Tamoxifen Citrate 20 mg PO QDAY 06/02/18 06/02/18 Unknown History fentaNYL [Fentanyl] 1 each TD Q72HR 06/02/18 06/02/18 Unknown History Active Meds: Active Medications Fentanyl (Sublimaze) 50 mcg IV Q10MIN PRN PRN Reason: ANALGESIA Hydrophilic Ointment (Vaseline Lip Therapy) 1 applic TP Q2HR PRN PRN Reason: Dry Lips Vancomycin HCl 1,750 mg/ (Sodium Chloride) 535 mls @ 333 mls/hr IV ONCE ONE; P rotocol Stop: 06/02/18 13:36 Cefepime HCl (Maxipime/Ns 2 Gm/100 Ml) 2 gm in 100 mls @ 200 mls/hr IV NOW NIGEL; Protocol Last Admin: 06/02/18 11:20 Dose: 200 mls/hr Documented by: Fentanyl Citrate (Fentanyl Drip Premix) 2,000 mcg in 100 mls @ 4.082 mls/hr IV TITR NIGEL; Protocol Midazolam HCl 100 mg/ Sodium (Chloride) 100 mls @ 2 mls/hr IV TITR NIGEL; Protocol Midazolam HCl (Versed) 2 mg IV Q10MIN PRN PRN Reason: Sedation Multi-Ingred Cream/Lotion/Oil/Oint (Artificial Tears Ophth Oint) 1 applic OU Q4HR PRN PRN Reason: Dry Eye(s) Review of Systems ROS unobtainable: due to endotracheal tube, due to mental status Physical Examination Vital signs: Vital Signs Pulse BP 124 H 135/89 06/02/18 10:40 06/02/18 10:40 - General Limitations: Altered Mental Status General appearance: obtunded Obese, orally intubated, ETT 23 cm at lip No patient-ventilator dys-synchrony - Head Head exam: Present: atraumatic, normocephalic - Eye Eye exam: Present: normal appearance, EOMI. - ENT ENT exam: Present: mucous membranes dry, normal external ear exam, other (copious secretions noted in oropharynx.) - Neck Neck exam: Present: normal inspection. Absent: tenderness, meningismus - Respiratory Respiratory exam: Present: respiratory distress. Absent: normal lung sounds bilaterally - Cardiovascular Cardiovascular Exam: Present: normal rhythm, tachycardia, normal heart sounds. Absent: bradycardia, irregular rhythm - GI/Abdominal GI/Abdominal exam: Present: soft. Absent: distended, NT, - Rectal Rectal exam: Absent: normal inspection (patient has a stage II sacral ulcer, with no redness, pus or streaking) - External exam: Present: normal external exam - Extremities Exam Extremities exam: Present: normal inspection, pedal edema, - Back Exam Back exam: Absent: tenderness, CVA tenderness (R), paraspinal tenderness, vertebral tenderness - Neurological Exam Neurological exam: Present: altered, other (unable to complete detailed neurologic examination secondary to acute encephalopathy, delirium) - Psychiatric Psychiatric exam: Present: other (altered, nonverbal) - Skin Skin exam: Present: dry. Absent: intact (sacral ulcer is noted) Results - Laboratory Findings CBC and BMP: 06/02/18 10:56 06/02/18 10:56 ABG POC ABG pH 7.379 (7.35-7.45) 06/02/18 11:46 POC ABG pCO2 44.5 (35-45) 06/02/18 11:46 POC ABG pO2 309 (80-105) H 06/02/18 11:46 POC ABG HCO3 26.3 (22-26 mml/L) 06/02/18 11:46 POC ABG Total CO2 28 (23-27mmol/L) 06/02/18 11:46 POC ABG O2 Sat 100 06/02/18 11:46 PT/INR, D-dimer PT 21.0 Sec. (12.2-14.9) H 06/02/18 10:56 INR 1.69 (0.87-1.13) H 06/02/18 10:56 Abnormal lab findings: Abnormal Labs 06/02/18 06/02/18 06/02/18 10:56 10:56 10:56 RBC 5.10 H Hgb 14.5 H Hct 44.4 H RDW 19.6 H PT 21.0 H INR 1.69 H POC ABG pO2 Sodium 166 H* Chloride 116.7 H BUN 30 H Creatinine 1.5 H Glucose 132 H Lactic Acid Calcium 7.5 L AST 121 H Alkaline Phosphatase 228 H Troponin T 0.047 H Albumin 2.4 L Triglycerides 193 H LDL Cholesterol Direct 34 L HDL Cholesterol 24 L Urine WBC (Auto) 06/02/18 06/02/18 06/02/18 10:56 11:29 11:46 RBC Hgb Hct RDW PT INR POC ABG pO2 309 H Sodium Chloride BUN Creatinine Glucose Lactic Acid 8.10 H* Calcium AST Alkaline Phosphatase Troponin T Albumin Triglycerides LDL Cholesterol Direct HDL Cholesterol Urine WBC (Auto) 18.0 H 04/01/19 12:06 RBC Hgb Hct RDW PT INR POC ABG pO2 Sodium Chloride BUN Creatinine Glucose Lactic Acid 8.60 H* Calcium AST Alkaline Phosphatase Troponin T Albumin Triglycerides LDL Cholesterol Direct HDL Cholesterol Urine WBC (Auto) - Diagnostic Findings Chest x-ray: image reviewed (right main stem intubations, elevated right hemidiaphragm) Assessment and Plan -Acute hypoxic respiratory failure on MVS -Acute encephalopathy( toxic, metabolic) -Hypernatremia -Severe sepsis, unclear etiology -Morbid obesity -KAILEE -Admit ICU -VAP bundle addressed -Place small bowel feeding tube for free water, once placement is confirmed -No sedation for now, to allow for assessment of neurologic function -VTE prophylaxis -Stress ulcer prophylaxis -Broad spectrum antibiotics -Follow cultures, de-escalate based on JAMES and ID -Daily CXR and ABG for 3 days -Serial BMPs to monitor sodium levels -Wean FIO2 for O2 sats>90% -Lung protective strategies -will address nutrition in the next 48 hours -r/o VTE as a cause for the hypoxia -Get 2D Echocardiogram -Monitor closley for any hemodynamic decompensation, may need vasopressor support to keep MAP>5 -Thomas catheter in this critically ill patient with acute renal failure, r equiring accurate monitoring of intake and output. PROGNOSIS: GUARDED TO POOR CONDITION: CRITICAL CODE STATUS: FULL CODE Discussed in detail with ED physician. We will try to locate family to address goals of care and code status. In interim will continue to treat her aggressively. CC Time 65 minutes
[2018-06-02] MEDS ORDERED: NACL 0.9% 500 ML 500 ML IV ONE (14:10)
[2018-06-02] MEDS ORDERED: TYLENOL PO PRN (19:45)
[2018-06-02 20:27] VITALS: BP 99/42
--- NOTE | 2018-06-03 08:16 | Progress Note ---
Subjective Date of service: 06/03/18 Interval history: Patient is seen today for: Seen and examined at bedside; 24hour events reviewed; nursing and respiratory care staff consulted; no adverse overnight events reported to me; Objective Vital Signs - 12hr 06/02/18 06/02/18 20:25 23:29 Pulse Rate 166 H 166 H Blood Pressure 99/42 99/42 CBC and BMP: 06/02/18 10:56 06/02/18 10:56 ABG, PT/INR, D-dimer: ABG POC ABG pH 7.379 (7.35-7.45) 06/02/18 11:46 POC ABG pCO2 44.5 (35-45) 06/02/18 11:46 POC ABG pO2 309 (80-105) H 06/02/18 11:46 POC ABG HCO3 26.3 (22-26 mml/L) 06/02/18 11:46 POC ABG Total CO2 28 (23-27mmol/L) 06/02/18 11:46 POC ABG O2 Sat 100 06/02/18 11:46 PT/INR, D-dimer PT 21.0 Sec. (12.2-14.9) H 06/02/18 10:56 INR 1.69 (0.87-1.13) H 06/02/18 10:56 Abnormal lab findings: Abnormal Labs 06/02/18 06/02/18 06/02/18 10:56 10:56 10:56 RBC 5.10 H Hgb 14.5 H Hct 44.4 H RDW 19.6 H PT 21.0 H INR 1.69 H POC ABG pO2 Sodium 166 H* Chloride 116.7 H BUN 30 H Creatinine 1.5 H Glucose 132 H Lactic Acid Calcium 7.5 L AST 121 H Alkaline Phosphatase 228 H Troponin T 0.047 H Albumin 2.4 L Triglycerides 193 H LDL Cholesterol Direct 34 L HDL Cholesterol 24 L Urine WBC (Auto) 06/02/18 06/02/18 06/02/18 10:56 11:29 11:46 RBC Hgb Hct RDW PT INR POC ABG pO2 309 H Sodium Chloride BUN Creatinine Glucose Lactic Acid 8.10 H* Calcium AST Alkaline Phosphatase Troponin T Albumin Triglycerides LDL Cholesterol Direct HDL Cholesterol Urine WBC (Auto) 18.0 H 06/02/18 12:06 RBC Hgb Hct RDW PT INR POC ABG pO2 Sodium Chloride BUN Creatinine Glucose Lactic Acid 8.60 H* Calcium AST Alkaline Phosphatase Troponin T Albumin Triglycerides LDL Cholesterol Direct HDL Cholesterol Urine WBC (Auto)
--- NOTE | 2018-06-03 08:20 | Event Note ---
Date: 06/02/18 See dictated H/p in reports
--- NOTE | 2018-06-03 09:01 | History and Physical Report ---
CHIEF COMPLAINT: Altered mental status and respiratory distress. 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 Also, fever greater than 102 and the patient was hypoxic and in respiratory distress and was obtunded with a GCS of 3. The patient was initially put on CPAP and then intubated for protection of airway and aspiration and for respiratory support. After ventilation, daughter came and she wanted DNR and possible hospice. PAST MEDICAL HISTORY: Significant for dementia, insulin-dependent diabetes, breast cancer, COPD, metastasis. PAST SURGICAL HISTORY: None. SOCIAL HISTORY: Does not smoke. No alcohol, no recreational drugs. FAMILY HISTORY: Hypertension. REVIEW OF SYSTEMS: GENERAL: Significant for severe respiratory distress and pain all over secondary to metastasis, especially in the mid back and lower back. CENTRAL NERVOUS SYSTEM: Altered sensorium, decreased responsiveness. PHYSICAL EXAMINATION: GENERAL: Elderly female, intubated. VITAL SIGNS: Temperature is 105.9, pulse is 124, respirations are 12, blood pressure 135/89. HEENT: Unremarkable. Pupils equal, reactive. NECK: Supple, no lymphadenopathy, no thyromegaly. LUNGS: Scattered rhonchi bilaterally. CARDIOVASCULAR SYSTEM: S1, S2 heard. No gallop, no murmur, no rub. Apical impulse in left fifth intercostal space and midclavicular line. ABDOMEN: Soft and benign. Has no hepatosplenomegaly. No guarding, no rigidity. Hernial orifices are normal. EXTREMITIES: Good pedal pulses. No pedal edema. CENTRAL NERVOUS SYSTEM: The patient is lethargic. LABORATORY DATA: Significant for white count of 7300, H and H of 14.5 and 44.4. ABG significant for pH of 7.379, pCO2 of 44.5, pO2 of 309. Sodium is 166, BUN and creatinine 30 and 1.5. Lactic acid is 8.19. LFTs are elevated. AST is 121. Urine shows 18 white blood cells. DIAGNOSTIC DATA: Chest x-ray, no acute findings. ET tube in the right main bronchus. EKG, sinus tachycardia. Head CT; evidence of atrophy and microangiopathic ischemic disease, no acute intracranial process. ASSESSMENT AND PLAN: 1. Acute respiratory failure. The patient intubated. The patient on vent. Patient Care Provider consult requested. DuoNebs [id number] and q. 3h. p.r.n. IV antibiotics started. Cefepime and vancomycin. 2. Sepsis. The patient has a high lactic acid. No hypotension. Cefepime and vancomycin started. 3. Breast cancer with metastasis. The patient wants DNR and hospice care. The patient already intubated. We will not do any aggressive treatments. 4. Dementia. The patient on Exelon patch. 5. Insulin-dependent diabetes, coverage for now. 6. Chronic pain. Oxycodone and Dilaudid as necessary. 7. Deep venous thrombosis prophylaxis, Lovenox 30 mg subcutaneous daily. In summary, the patient has acute respiratory failure, sepsis, and hypernatremia. For hypernatremia, will have half normal saline at this point. The patient is critically ill, now made DNR. Discussed with daughter at length about hospice and DNR. Daughter agreeable for no heroic measures, but does not want extubation. The critical care time is 40 minutes. JOB# [id number] KALI/NAHOMI
--- NOTE | 2018-06-03 10:32 | Discharge Summary ---
SUMMARY The patient was admitted on 06/02/2018. The patient on 06/02/2018 at 8:00 p.m. HOSPITAL COURSE: The patient came in severe respiratory distress and altered sensorium. The patient was intubated in the Emergency Room. The patient's blood pressure was holding steady initially. Daughter wanted hospice and DNR. The patient was starting to become hypotensive around 6:00 p.m. No dopamine or Levophed were added because the patient and family did not want any more heroic measures. They wanted her to pass away peacefully. The patient was continued on vent support. The patient slowly became hypotensive and flat lined around 8:00 p.m. I examined the patient at around 8:00 p.m. The patient's pupils were dilated and fixed and was in asystole. No atrial activity. Time of expiration 8:00 p.m., which is 20:00 hours. CAUSE OF : 1. Acute respiratory failure. 2. Sepsis. 3. Hyponatremia. certificate to be signed by Dr. Katherin mujica. JOB# [id number] KALI/NTS
[2018-06-03] MEDS ORDERED: VANCOMYCIN 1,250 MG in NACL 0.9% 250ML 250 ML IV SCH (12:00)
== END 2018-06-02 20:00 | DRG 871 ==
LOC: ED 10:33 → CC1 13:08
PROVIDERS: ADMIT Internal Medicine; ATTEND Internal Medicine
PROC: 5A1935Z Respiratory Ventilation, Less than 24 Consecutive Hours (ICD-10-PCS; principal; 2018-06-02)
PROC: 0BH17EZ Insertion of Endotracheal Airway into Trachea, Via Natural or Artificial Opening (ICD-10-PCS; 2018-06-02)
PROC: 4A033R1 Measurement of Arterial Saturation, Peripheral, Percutaneous Approach (ICD-10-PCS; 2018-06-02)
DX: A41.9 Sepsis, unspecified organism (principal); J96.01 Acute respiratory failure with hypoxia; E87.0 Hyperosmolality and hypernatremia; N17.9 Acute kidney failure, unspecified; C79.31 Secondary malignant neoplasm of brain; C79.51 Secondary malignant neoplasm of bone; E87.1 Hypo-osmolality and hyponatremia; F03.90 Unspecified dementia, unspecified severity, without behavioral disturbance, psychotic disturbance, mood disturbance, and anxiety; E11.9 Type 2 diabetes mellitus without complications; J44.9 Chronic obstructive pulmonary disease, unspecified; Z51.5 Encounter for palliative care; G89.29 Other chronic pain; C50.919 Malignant neoplasm of unspecified site of unspecified female breast; R65.20 Severe sepsis without septic shock; E66.01 Morbid (severe) obesity due to excess calories; I10 Essential (primary) hypertension; F20.9 Schizophrenia, unspecified; H54.8 Legal blindness, as defined in USA; Z79.4 Long term (current) use of insulin; Z82.49 Family history of ischemic heart disease and other diseases of the circulatory system; Z79.899 Other long term (current) drug therapy; Z79.51 Long term (current) use of inhaled steroids; Z68.31 Body mass index [BMI] 31.0-31.9, adult; Z66 Do not resuscitate
CPT/HCPCS: 36415; 70450; 71045; 80053; 80061; 81001; 82140; 82550; 82803; 83735; 84484; 85025; 85610; 85730; 87040; 87086; 93005; 93010; 94002; 99292; G0378; J0692; J1956; J3370; J7030; J7040; J7050